=== PATIENT | male | born 1975 | race Two or more races ===

== ENCOUNTER 2016-07-03 16:41 | Inpatient (IN) | payer MEDICAID ==
[~2016-07-03] VITALS: Ht 177.8 cm; Wt 86.2 kg
[~2016-07-03 16:41] MED LIST: Haloperidol 5mg/ml Inj ONE; LORazepam Inj 2mg/ml 1ml ONE; UNOBMED
[2016-07-03] MEDS ORDERED: LORazepam Inj 2mg/ml 1ml IM ONE ×2 (16:45→17:00)
[2016-07-03] MEDS ORDERED: Haloperidol 5mg/ml Inj IM ONE (16:45)
[2016-07-03] MEDS ORDERED: DiphenhydrAMINE 50mg/ml Inj IM ONE (17:00)
[2016-07-03 18:41] LABS: MEAN CORPUSCULAR HEMOGLOBIN 29.1 PG (27.0-31.0); MEAN CORPUSCULAR HGB CONC 33.1 G/DL (32.0-36.0); MEAN CORPUSCULAR VOLUME 88 FL (80-99); PLATELET COUNT 232 K/UL (150-450); RED BLOOD COUNT 5.27 M/UL (4.70-6.10); RED CELL DISTRIBUTION WIDTH 11.6 % (11.6-14.8)
[2016-07-03 18:50] LABS: ACETAMINOPHEN < 10 ug/mL (10-30); ALBUMIN/GLOBULIN RATIO 1.8 (1.0-2.7); ALCOHOL < 10 mg/dL; ANION GAP 21 (5-15); CARBON DIOXIDE 22 mEQ/L (20-30); CHLORIDE 98 mEQ/L (98-107); CREATININE 1.7 mg/dL (0.7-1.2); GLOMERULAR FILTRATION RATE 44.9 mL/min (>60); HEMOLYSIS 12; POTASSIUM 4.7 mEQ/L (3.4-4.9); SODIUM 141 mEQ/L (135-145); TOTAL PROTEIN 6.2 g/dL (6.6-8.7)
[2016-07-03 19:02] LABS: ALANINE AMINOTRANSFERASE > 700 U/L (3-41); ASPARTATE AMINO TRANSFERASE > 853 U/L (5-40)
[2016-07-03 19:18] LABS: BAND NEUTROPHILS % (MANUAL) 4 % (0-8); BASOPHILS % (MANUAL) 0 % (0-2); EOSINOPHILS % (MANUAL) 0 % (0-3); LYMPHOCYTES % (MANUAL) 24 % (20-45); NEUTROPHILS % (MANUAL) 64 % (45-75); PLATELET ESTIMATE ADEQUATE; PLATELET MORPHOLOGY NORMAL; TOTAL CELLS COUNTED 100
[2016-07-03 19:56] VITALS: BP 100/68
[2016-07-03 20:31] VITALS: BP 113/85
[2016-07-03] MEDS ORDERED: Ketorolac 30mg Inj IV ONE (20:45)
[2016-07-03 22:23] VITALS: BP 93/47
--- NOTE | 2016-07-03 22:34 | Emergency Room Report ---
History of Present Illness General Chief Complaint: Altered Level of Consciousness Source: EMS (SILVANO HARRIS M.D.) Present Illness HPI 40-year-old male presents ED for evaluation. Patient brought in by EMS, found altered in his car. Pinpoint pupils. Was given Narcan. Upon arrival he is agitated and screaming. Not speaking and physical manner. Unable to provide any additional history at this time. Reported aggravating relieving factors. No other associated symptoms (SILVANO HARRIS M.D.) Allergies: Coded Allergies: UNABLE TO ASSESS (Unverified , 07/03/16) Patient History Past Medical History: none Past Surgical History: none Pertinent Family History: none Social History: Reports: drug use, Denies: alcohol use, smoking Immunizations: UTD Reviewed Nursing Documentation: PMH: Agreed, PSxH: Agreed (SILVANO HARRIS M.D.) Nursing Documentation-PMH Past Medical History Deferred: Pt Cognitively Impaired (SILVANO HARRIS M.D.) Review of Systems All Other Systems: limited (SILVANO HARRIS M.D.) Physical Exam Vital Signs Date Time Temp Pulse Resp B/P Pulse Ox O2 Delivery O2 Flow Rate FiO2 07/03/16 16:33 86 20 112/51 94 Room Air 07/03/16 19:56 15.0 07/03/16 20:31 101.3 Sp02 EP Interpretation: reviewed, normal General Appearance: other - agitated, screaming Head: normocephalic Eyes: bilateral eye PERRL, bilateral eye normal inspection ENT: normal ENT inspection Neck: normal inspection Respiratory: chest non-tender, lungs clear, normal breath sounds, speaking full sentences Cardiovascular #1: tachycardia Gastrointestinal: normal inspection Rectal: deferred Genitourinary: no CVA tenderness Musculoskeletal: normal inspection Neurologic: alert, motor strength/tone normal, sensory intact, other - screaming/yelling Psychiatric: other - agitated/yelling Skin: normal inspection Lymphatic: normal inspection (SILVANO HARRIS M.D.) Medical Decision Making Diagnostic Impression: Primary Impression: Opiate overdose Qualified Codes: T40.601A - Poisoning by unspecified narcotics, accidental ( unintentional), initial encounter Additional Impressions: Acute encephalopathy Amphetamine abuse Abnormal liver enzymes Acute kidney injury (nontraumatic) Fever Qualified Codes: R50.9 - Fever, unspecified Labs Test 07/03/16 18:02 07/03/16 18:22 Urine Opiates Screen Positive (NEGATIVE) Urine Barbiturates Screen Negative (NEGATIVE) Phencyclidine (PCP) Screen Negative (NEGATIVE) Urine Amphetamines Screen Positive (NEGATIVE) Urine Benzodiazepines Screen Negative (NEGATIVE) Urine Cocaine Screen Negative (NEGATIVE) Urine Marijuana (THC) Screen Negative (NEGATIVE) White Blood Count 2.0 K/UL (4.8-10.8) Red Blood Count 5.27 M/UL (4.70-6.10) Hemoglobin 15.3 G/DL (14.2-18.0) Hematocrit 46.3 % (42.0-52.0) Mean Corpuscular Volume 88 FL (80-99) Mean Corpuscular Hemoglobin 29.1 PG (27.0-31.0) Mean Corpuscular Hemoglobin Concent 33.1 G/DL (32.0-36.0) Red Cell Distribution Width 11.6 % (11.6-14.8) Platelet Count 232 K/UL (150-450) Mean Platelet Volume 7.0 FL (6.5-10.1) Neutrophils (%) (Auto) % (45.0-75.0) Lymphocytes (%) (Auto) % (20.0-45.0) Monocytes (%) (Auto) % (1.0-10.0) Eosinophils (%) (Auto) % (0.0-3.0) Basophils (%) (Auto) % (0.0-2.0) Differential Total Cells Counted 100 Neutrophils % (Manual) 64 % (45-75) Lymphocytes % (Manual) 24 % (20-45) Monocytes % (Manual) 8 % (1-10) Eosinophils % (Manual) 0 % (0-3) Basophils % (Manual) 0 % (0-2) Band Neutrophils 4 % (0-8) Platelet Estimate Adequate Platelet Morphology Normal Red Blood Cell Morphology Normal Sodium Level 141 mEQ/L (135-145) Potassium Level 4.7 mEQ/L (3.4-4.9) Chloride Level 98 mEQ/L (98-107) Carbon Dioxide Level 22 mEQ/L (20-30) Anion Gap 21 (5-15) Blood Urea Nitrogen 23 mg/dL (7-23) Creatinine 1.7 mg/dL (0.7-1.2) Estimat Glomerular Filtration Rate 44.9 mL/min (>60) Glucose Level 63 mg/dL (74-106) Calcium Level 8.0 mg/dL (8.6-10.2) Total Bilirubin 0.9 mg/dL (0.0-1.2) Aspartate Amino Transf (AST/SGOT) > 853 U/L (5-40) Alanine Aminotransferase (ALT/SGPT) > 700 U/L (3-41) Alkaline Phosphatase 55 U/L (40-129) Total Protein 6.2 g/dL (6.6-8.7) Albumin 4.0 g/dL (3.5-5.2) Globulin 2.2 g/dL Albumin/Globulin Ratio 1.8 (1.0-2.7) Salicylates Level < 1 mg/dL (10-30) Acetaminophen Level < 10 ug/mL (10-30) Serum Alcohol < 10 mg/dL (SILVANO HARRIS M.D.) ER Course Patient signed out to me. He was found passed out in his car. He has pinpoint pupil. He responded to Narcan. Require another dose of Narcan here. He is slowly improving. Now breathing on his own. Responded to painful stimuli. After 13 hours, not fully awake, will admit for monitoring. (PAYTON POLO M.D.) ER Course Patient with low grade fever. Labs, CXR and CT head reviewed. Blood cultures obtained. Broad spectrum antibiotics begun. Patient moving head without meningismus. Lactic acid high. Fluid bolus initiated. Patient improved and tolerating PO fluids, but still altered. (Eduardo Vegas M.D.) EKG Diagnostic Results Rate: tachycardiac Rhythm: NSR ST Segments: no acute changes ASA given to the pt in ED: No (SILVANO HARRIS M.D.) Rhythm Strip Diag. Results EP Interpretation: yes Rhythm: NSR, no PVC's, no ectopy (SILVANO HARRIS M.D.) CT/MRI/US Diagnostic Results CT/MRI/US Diagnostic Results : Imaging Test Ordered: CT head Impression no acute process (SILVANO HARRIS M.D.) Last Vital Signs Date Time Temp Pulse Resp B/P Pulse Ox O2 Delivery O2 Flow Rate FiO2 07/03/16 22:23 99.9 114 20 93/47 94 Non-Rebreather 15.0 Status: unchanged (SILVANO HARRIS M.D.) Status: improved (PAYTON POLO M.D.) Disposition: ADMITTED INPATIENT Condition: Serious Referrals: NOT CHOSEN IPA/,REFERRING (PCP) SILVANO HARRIS M.D. Jul 03, 2016 22:34 PAYTON POLO M.D. Jul 04, 2016 05:54 Eduarod Vegas M.D. Jul 04, 2016 12:42
[2016-07-03] MEDS ORDERED: Naloxone 1mg/ml 2ml ONE (23:54)
[2016-07-04] VITALS (11 sets, daily range): BP systolic 88–155; BP diastolic 43–125
[2016-07-04] MEDS ORDERED: Naloxone 1mg/ml 2ml IVP ONE
--- NOTE | 2016-07-04 10:48 | Diagnostic Imaging Report ---
Indication: Altered mental status Comparison: None Technique: Contiguous helical CT images through the brain was performed without intravenous contrast. Axial, coronal and sagittal reconstructions were reformatted. CT dose: Total DLP 1397 mGycm, CTDI volume 70.4 mGy Findings: Exam is limited due to motion artifact. There is no acute intracranial hemorrhage or infarct. No mass, mass effect or midline shift is identified. Ventricles and sulci are within normal limits. No extra-axial fluid collections are seen. Bony calvarium is intact. Mastoid air cells and visualized paranasal sinuses are clear with the exception of some mucosal thickening in the left maxillary sinus and the bilateral ethmoid sinuses.. Impression: Exam limited due to motion. No definite acute intracranial abnormalities. Bilateral ethmoid and left maxillary chronic sinus disease The CT scanner at [facility] is accredited by the [employer] and the scans are performed using protocols designed to limit radiation exposure to as low as reasonably achievable to attain images of sufficient resolution adequate for diagnostic evaluation.
[2016-07-04] MEDS: Cefepime 1gm vial IM ONE ×2 (12:15→12:35)
[2016-07-04] MEDS ORDERED: Vancomycin 1.5gm/D5W 300ml 300 ML IVPB ONE (12:45)
[2016-07-04 13:08] LABS: REFLEX LACTIC ACID YES OR NO YES
[2016-07-04] MEDS ORDERED: NS 1000ml 2,600 ML IVLG ONE (13:30)
[2016-07-04] MEDS ORDERED: Norco 10mg/325mg tab ORAL PRN (17:45)
[2016-07-04] MEDS ORDERED: LORazepam Inj 2mg/ml 1ml IV PRN (18:00)
[2016-07-05] VITALS: BP 111/58
[2016-07-05 04:00] VITALS: BP 142/91
[2016-07-05 08:00] VITALS: BP 138/83
[2016-07-05 11:37] LABS: THYROID STIMULATING HORMONE 0.511 uIU/mL (0.300-4.500)
[2016-07-05 11:53] LABS: MEAN CORPUSCULAR HEMOGLOBIN 31.1 PG (27.0-31.0); MEAN CORPUSCULAR HGB CONC 35.9 G/DL (32.0-36.0); MEAN CORPUSCULAR VOLUME 87 FL (80-99); MEAN PLATELET VOLUME 7.6 FL (6.5-10.1); PLATELET COUNT 174 K/UL (150-450); RED BLOOD COUNT 4.27 M/UL (4.70-6.10); RED CELL DISTRIBUTION WIDTH 11.9 % (11.6-14.8); WHITE BLOOD COUNT 9.7 K/UL (4.8-10.8)
--- NOTE | 2016-07-05 11:56 | History and Physical ---
History of Present Illness General Date patient seen: Jul 05, 2016 Reason for Hospitalization: Altered Level of Consciousness Present Illness HPI Pt is unable to provide any health information at this time, he is drowsy, info was obtained from ED note. Pt is s 40-year-old who was brought in by EMS, found altered in his car. Was given Narcan in ED, upon arrival, he was agitated and screaming. Positive for opiates and amphetamines. Unable to provide any additional history. Reported no aggravating or relieving factors. No other associated symptoms. Allergies: Coded Allergies: PENICILLINS (Verified Allergy, Unknown, 07/05/16) Medication History Miscellaneous Medications Unable to Obtain Medications (Unable To Obtain Meds), (Reported) Patient History History Provided By: Medical Record Healthcare decision maker Resuscitation status Full Code Advanced Directive on File Social History Social History: (1) Drug abuse and dependence Review of Systems ROS Narrative unable to obtain Physical Exam General Appearance: no apparent distress Lines, tubes and drains: peripheral HEENT: normocephalic, atraumatic Neck: non-tender, normal alignment, supple Respiratory/Chest: lungs clear Cardiovascular/Chest: normal rate, regular rhythm, no JVD Abdomen: normal bowel sounds, non tender, soft Extremities: non-tender, normal inspection, no calf tenderness, normal capillary refill Skin Exam: normal pigmentation, warm/dry Neurologic: unresponsiveness Last 24 Hour Vital Signs Date Time Temp Pulse Resp B/P Pulse Ox O2 Delivery O2 Flow Rate FiO2 07/05/16 08:00 91 07/05/16 08:00 98.6 93 20 138/83 95 Room Air 07/05/16 04:00 97.7 104 22 142/91 95 Nasal Cannula 2.0 07/05/16 04:00 95 07/05/16 01:00 99.9 07/05/16 00:00 100.8 72 22 111/58 92 Nasal Cannula 2.0 07/05/16 00:00 103 07/04/16 20:00 99.3 107 14 117/65 93 Nasal Cannula 2.0 07/04/16 17:17 Nasal Cannula 2.0 07/04/16 16:35 98.6 122 14 138/84 90 Room Air 07/04/16 16:00 116 07/04/16 15:34 99.4 108 25 114/69 98 Nasal Cannula 3.0 110 07/04/16 15:20 99.4 110 25 114/69 98 Nasal Cannula 3.0 07/04/16 13:14 100.5 108 22 99/43 96 Nasal Cannula 3.5 Intake and Output 07/04/16 07/05/16 19:00 07:00 Intake Total 800 ml Output Total 2250 ml Balance -1450 ml Intake Oral 800 ml Output Urine Total 2250 ml # Voids 4 4 # Bowel Movements 3 Laboratory Tests Test 07/04/16 12:00 07/05/16 08:45 Lactic Acid Level 2.70 mmol/L (0.66-2.22) H Vitamin B12 Level Pending Folate Pending Thyroid Stimulating Hormone (TSH) 0.511 uIU/mL (0.300-4.500) Height (Feet): 5 Height (Inches): 10.00 Weight (Pounds): 190 Medications Current Medications Medications (Trade) Dose Ordered Sig/Elizabeth Route PRN Reason Start Time Stop Time Status Last Admin Dose Admin Acetaminophen/ Hydrocodone Bitart ([place] 10/325) 1 ea Q6HR PRN ORAL For Pain 07/04/16 17:45 07/11/16 17:44 Lorazepam (Ativan 2mg/ml 1ml) 1 mg Q6H PRN IV Agitation 07/04/16 18:00 07/11/16 17:59 Assessment/Plan Problem List: (1) Amphetamine abuse ICD Codes: F15.10 - Other stimulant abuse, uncomplicated SNOMED: 42992396 (2) Opiate overdose ICD Codes: T40.601A - Poisoning by unspecified narcotics, accidental ( unintentional), initial encounter SNOMED: 814105585 Qualifiers: Qualified Codes: T40.601A - Poisoning by unspecified narcotics, accidental ( unintentional), initial encounter (3) Acute encephalopathy ICD Codes: G93.40 - Encephalopathy, unspecified SNOMED: 3718517 Assessment/Plan Monitor neurological status Neurology consult Cardiology consult Monitor Labs Fall precaution Ca Riggs N.P. Jul 05, 2016 11:56
[2016-07-05 12:00] VITALS: BP 136/81
--- NOTE | 2016-07-05 12:09 | Cardiology Report ---
APPROVED REPORT EKG Measurement Heart [id number] NM [id number] Normal sinus rhythm Possible Left atrial enlargement Septal infarct, age undetermined Abnormal ECG
[2016-07-05 12:13] LABS: BAND NEUTROPHILS % (MANUAL) 22 % (0-8); BASOPHILS % (MANUAL) 0 % (0-2); EOSINOPHILS % (MANUAL) 0 % (0-3); LYMPHOCYTES % (MANUAL) 17 % (20-45); NEUTROPHILS % (MANUAL) 55 % (45-75); PLATELET ESTIMATE ADEQUATE; PLATELET MORPHOLOGY NORMAL; TOTAL CELLS COUNTED 100
[2016-07-05 12:14] LABS: HYPOCHROMASIA 1+
[2016-07-05 12:15] LABS: PATH BLOOD SMEAR/OMC SENT TO PATHOLOGIST
[2016-07-05 12:59] LABS: ERYTHROCYTE SEDIMENTATION RATE 62 MM/HR (0-15)
--- NOTE | 2016-07-05 15:56 | General Progress Note ---
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, improved s/p neupogen # Anemia 2/2 chronic disease -mild # Narcotic overdose # Encephalopathy # Transaminitis Recommendations: - Monitor counts - s/p neupogen on 07/04/16 - Imaging of abdomen to be performed - Hepatitis and HIV panel are negative for infection - Medication review - Monitor for e/o infection - Neutropenic precautions - DVT ppx with heparin sq - DW Staff Sincerely, Elijah Montes MD Subjective Constitutional: Reports: no symptoms HEENT: Reports: no symptoms Cardiovascular: Reports: no symptoms Respiratory: Reports: no symptoms Gastrointestinal/Abdominal: Reports: poor appetite Genitourinary: Reports: no symptoms Neurologic/Psychiatric: Reports: no symptoms Endocrine: Reports: no symptoms Hematologic/Lymphatic: Reports: anemia Allergies: Coded Allergies: UNABLE TO ASSESS (Unverified , 07/03/16) Subjective stable, no events, no fevers or chills Objective Last 24 Hour Vital Signs Date Time Temp Pulse Resp B/P Pulse Ox O2 Delivery O2 Flow Rate FiO2 07/05/16 12:00 97.5 95 17 136/81 92 Nasal Cannula 2.0 07/05/16 12:00 97 07/05/16 08:00 91 07/05/16 08:00 98.6 93 20 138/83 95 Room Air 07/05/16 04:00 97.7 104 22 142/91 95 Nasal Cannula 2.0 07/05/16 04:00 95 07/05/16 01:00 99.9 07/05/16 00:00 100.8 72 22 111/58 92 Nasal Cannula 2.0 07/05/16 00:00 103 07/04/16 20:00 99.3 107 14 117/65 93 Nasal Cannula 2.0 07/04/16 17:17 Nasal Cannula 2.0 07/04/16 16:35 98.6 122 14 138/84 90 Room Air 07/04/16 16:00 116 Intake and Output 07/04/16 07/05/16 19:00 07:00 Intake Total 800 ml Output Total 2250 ml Balance -1450 ml Intake Oral 800 ml Output Urine Total 2250 ml # Voids 4 4 # Bowel Movements 3 Laboratory Tests 07/05/16 08:45: Vitamin B12 Level [Pending], Folate [Pending], Thyroid Stimulating Hormone (TSH ) 0.511 07/05/16 11:45: White Blood Count 9.7, Red Blood Count 4.27L, Hemoglobin 13.3L, Hematocrit 37.0L , Mean Corpuscular Volume 87, Mean Corpuscular Hemoglobin 31.1H, Mean Corpuscular Hemoglobin Concent 35.9, Red Cell Distribution Width 11.9, Platelet Count 174, Mean Platelet Volume 7.6, Neutrophils (%) (Auto) , Lymphocytes (%) ( Auto) , Monocytes (%) (Auto) , Eosinophils (%) (Auto) , Basophils (%) (Auto) , Differential Total Cells Counted 100, Neutrophils % (Manual) 55, Lymphocytes % ( Manual) 17L, Monocytes % (Manual) 6, Eosinophils % (Manual) 0, Basophils % ( Manual) 0, Band Neutrophils 22H, Platelet Estimate Adequate, Platelet Morphology Normal, Hypochromasia 1+, Erythrocyte Sedimentation Rate 62H Height (Feet): 5 Height (Inches): 10.00 Weight (Pounds): 190 General Appearance: no apparent distress EENT: PERRL/EOMI Neck: non-tender Cardiovascular: normal peripheral pulses Respiratory/Chest: normal breath sounds Abdomen: soft Genitourinary/Rectal: heme negative stool Extremities: normal inspection Edema: no edema noted Leg (L), no edema noted Leg (R) Edema: mild edema Neurologic: alert Skin: warm/dry Elijah Montes Jul 05, 2016 15:56
[2016-07-05 16:00] VITALS: BP 131/86
--- NOTE | 2016-07-05 16:02 | Cardiac Electrophysiology PN ---
Subjective Subjective [id number] Objective Last 24 Hour Vital Signs Date Time Temp Pulse Resp B/P Pulse Ox O2 Delivery O2 Flow Rate FiO2 07/05/16 12:00 97.5 95 17 136/81 92 Nasal Cannula 2.0 07/05/16 12:00 97 07/05/16 08:00 91 07/05/16 08:00 98.6 93 20 138/83 95 Room Air 07/05/16 04:00 97.7 104 22 142/91 95 Nasal Cannula 2.0 07/05/16 04:00 95 07/05/16 01:00 99.9 07/05/16 00:00 100.8 72 22 111/58 92 Nasal Cannula 2.0 07/05/16 00:00 103 07/04/16 20:00 99.3 107 14 117/65 93 Nasal Cannula 2.0 07/04/16 17:17 Nasal Cannula 2.0 07/04/16 16:35 98.6 122 14 138/84 90 Room Air Intake and Output 07/04/16 07/05/16 19:00 07:00 Intake Total 800 ml Output Total 2250 ml Balance -1450 ml Intake Oral 800 ml Output Urine Total 2250 ml # Voids 4 4 # Bowel Movements 3 Laboratory Tests Test 07/05/16 08:45 07/05/16 11:45 Vitamin B12 Level Pending Folate Pending Thyroid Stimulating Hormone (TSH) 0.511 uIU/mL (0.300-4.500) White Blood Count 9.7 K/UL (4.8-10.8) Red Blood Count 4.27 M/UL (4.70-6.10) L Hemoglobin 13.3 G/DL (14.2-18.0) L Hematocrit 37.0 % (42.0-52.0) L Mean Corpuscular Volume 87 FL (80-99) Mean Corpuscular Hemoglobin 31.1 PG (27.0-31.0) H Mean Corpuscular Hemoglobin Concent 35.9 G/DL (32.0-36.0) Red Cell Distribution Width 11.9 % (11.6-14.8) Platelet Count 174 K/UL (150-450) Mean Platelet Volume 7.6 FL (6.5-10.1) Neutrophils (%) (Auto) % (45.0-75.0) Lymphocytes (%) (Auto) % (20.0-45.0) Monocytes (%) (Auto) % (1.0-10.0) Eosinophils (%) (Auto) % (0.0-3.0) Basophils (%) (Auto) % (0.0-2.0) Differential Total Cells Counted 100 Neutrophils % (Manual) 55 % (45-75) Lymphocytes % (Manual) 17 % (20-45) L Monocytes % (Manual) 6 % (1-10) Eosinophils % (Manual) 0 % (0-3) Basophils % (Manual) 0 % (0-2) Band Neutrophils 22 % (0-8) H Platelet Estimate Adequate Platelet Morphology Normal Hypochromasia 1+ Erythrocyte Sedimentation Rate 62 MM/HR (0-15) H SAILAJA MCPHERSON Jul 05, 2016 16:02
--- NOTE | 2016-07-05 17:28 | Consultation ---
DATE OF CONSULTATION: 07/04/2016 NOTE: VERY POOR AUDIO QUALITY HEMATOLOGY/ONCOLOGY CONSULTATION CONSULTING PHYSICIAN: Elijah Montes M.D. REQUESTING PHYSICIAN: Vance Kirk M.D. REASON FOR CONSULTATION: Evaluation of leukopenia. IDENTIFYING DATA: Dear Dr. Vance Kirk, The patient is a pleasant 40-year-old male with past medical history significant for narcotic use, drug use, and methamphetamine use in the past at this time, presents to the [facility]. He is brought in by EMS, altered. He was noted to have pimple in pupils was given Narcan upon arrival. He is agitated, screaming, grossly physical, difficult to provide any further history from the patient. Upon checking his blood, it was noted WBC was 2000 with 54% neutrophils and 24% lymphocytes. Hematology service was consulted for further evaluation. PAST MEDICAL HISTORY: None noted. PAST SURGICAL HISTORY: None noted. MEDICATIONS: Medications have been reviewed. ALLERGIES: Unable to assess. SOCIAL HISTORY: alcohol, tobacco, drug use. FAMILY HISTORY: Noncontributory. REVIEW OF SYSTEMS: Difficult to obtain given the patient's mental status. PHYSICAL EXAMINATION: GENERAL: No acute distress. VITAL SIGNS: Temperature 99.3 degrees Fahrenheit, pulse 105, respiratory rate 14, blood pressure 117/65, pulse oximetry 93% nasal cannula. PULMONARY: Decreased breath sounds. CARDIOVASCULAR: Regular rate and rhythm. No M/G/R. ABDOMEN: Soft, nontender, and nondistended. EXTREMITIES: There is 1+ edema. LABORATORY AND DIAGNOSTIC DATA: WBC 18, hemoglobin 13.3, hematocrit 46, and platelet count . Imaging reviewed limited due to motion. ASSESSMENT: 1. 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 2. Narcotic probably overdose. 3. Acute encephalopathy. 4. Transaminitis. 5. Acute kidney injury. 6. Agitation. RECOMMENDATIONS: 1. The patient was given Narcan, Ativan, and Benadryl. 2. Medications have been reviewed. 3. Obtain ultrasound of the abdomen to rule out hepatosplenomegaly and cirrhosis. 4. Labs again reviewed. 5. I have ordered for , B12, folate, . 6. I have ordered for peripheral smear to rule out any evidence of abnormal and leukemia. 7. Antibiotics as needed. 8. Obtain CBC for tomorrow. Thank you, Dr. Vance Kirk, for this kind referral. Please do not hesitate to contact me with any further questions. Elijah Montes M.D. DR: Trent JOB#: [id number] CC:
[2016-07-05 20:00] VITALS: BP 137/72
[2016-07-05] MEDS: Heparin 5000 units/ml inj SUBQ SCH (21:10)
[2016-07-06] VITALS: BP 134/78
[2016-07-06 04:00] VITALS: BP 135/80
--- NOTE | 2016-07-06 05:08 | Consultation ---
DATE OF CONSULTATION: CARDIOLOGY CONSULTATION: REFERRING PHYSICIAN: Vance Kirk M.D. REASON FOR CONSULTATION: Mild tachycardia. HISTORY OF PRESENT ILLNESS: The patient is a 40-year-old gentleman who was found altered in his car and was brought in by EMS. The patient was given Narcan_in the field arrival, the patient agitated and screaming. The patient also tachycardic with heart rate of 122 . The patient was found to have opiate and amphetamine abuse . At time of my evaluation, the patient started sleepy and was not able to provide information. PAST MEDICAL HISTORY: Negative. SOCIAL HISTORY: History of polysubstance abuse. FAMILY HISTORY: Noncontributory. REVIEW OF SYSTEMS: Cannot be obtained. PHYSICAL EXAMINATION: VITAL SIGNS: Blood pressure 153/81, pulse 97, respirations 18, and temperature 97.5 degrees. HEAD AND NECK: Showed no JVD. LUNGS: Clear. CARDIOVASCULAR: Regular. S1 and S2. No gallop or murmur. ABDOMEN: Soft. EXTREMITIES: No pitting edema. LABORATORY AND DIAGNOSTIC DATA: EKG shows sinus tachycardia at a rate of 122 . Labs show white count today 9.7, hemoglobin 14.3, hematocrit 47, and platelet 174,000. Sodium potassium 4.7, BUN 23, creatinine , glucose 63. UA positive for opiates and amphetamine. ASSESSMENT AND PLAN: 1. Tachycardia with sinus tachycardia secondary to amphetamine use. The patient would not need heart rate is already improving. echocardiogram rule out myocardial infarction protocol . 2. Polysubstance abuse with amphetamine and opiate . 3. Leukopenia. White count improved . Thank very much, Dr. Kirk, for allowing me to participate in the care of this patient. Please do not hesitate to contact for any questions regarding my evaluation. Joshua Ford M.D. DR: Mars JOB#: [id number] CC:
[2016-07-06] MEDS: Heparin 5000 units/ml inj SUBQ SCH ×3 (06:04→22:16)
[2016-07-06 08:14] LABS: BASOPHILS % (AUTO) 0.5 % (0.0-2.0); EOSINOPHILS % (AUTO) 0.7 % (0.0-3.0); LYMPHOCYTES % (AUTO) 18.3 % (20.0-45.0); MEAN CORPUSCULAR HEMOGLOBIN 29.6 PG (27.0-31.0); MEAN CORPUSCULAR HGB CONC 34.1 G/DL (32.0-36.0); MEAN CORPUSCULAR VOLUME 87 FL (80-99); MEAN PLATELET VOLUME 6.9 FL (6.5-10.1); MONOCYTES % (AUTO) 3.8 % (1.0-10.0); NEUTROPHILS % (AUTO) 76.8 % (45.0-75.0); PLATELET COUNT 192 K/UL (150-450); RED BLOOD COUNT 4.11 M/UL (4.70-6.10); RED CELL DISTRIBUTION WIDTH 11.7 % (11.6-14.8); WHITE BLOOD COUNT 10.2 K/UL (4.8-10.8)
[2016-07-06 08:30] VITALS: BP 139/74
[2016-07-06 08:38] LABS: ANION GAP 14 (5-15); CALCIUM 8.5 mg/dL (8.6-10.2); CARBON DIOXIDE 25 mEQ/L (20-30); CHLORIDE 102 mEQ/L (98-107); CREATININE 0.6 mg/dL (0.7-1.2); GLOMERULAR FILTRATION RATE > 60 mL/min (>60); HEMOLYSIS 2; POTASSIUM 3.3 mEQ/L (3.4-4.9); SODIUM 141 mEQ/L (135-145)
[2016-07-06 08:40] LABS: TROPONIN I < 0.30 ng/mL (<=0.30)
[2016-07-06 11:43] VITALS: BP 117/81
--- NOTE | 2016-07-06 12:17 | Neurology Progress Note ---
Objective Physical Exam Last Vital Signs Date Time Temp Pulse Resp B/P Pulse Ox O2 Delivery O2 Flow Rate FiO2 07/06/16 11:43 98.6 90 20 117/81 96 Room Air 07/06/16 08:30 2.0 07/05/16 19:25 28 Laboratory Tests Test 07/06/16 06:22 White Blood Count 10.2 K/UL (4.8-10.8) Red Blood Count 4.11 M/UL (4.70-6.10) L Hemoglobin 12.2 G/DL (14.2-18.0) L Hematocrit 35.8 % (42.0-52.0) L Mean Corpuscular Volume 87 FL (80-99) Mean Corpuscular Hemoglobin 29.6 PG (27.0-31.0) Mean Corpuscular Hemoglobin Concent 34.1 G/DL (32.0-36.0) Red Cell Distribution Width 11.7 % (11.6-14.8) Platelet Count 192 K/UL (150-450) Mean Platelet Volume 6.9 FL (6.5-10.1) Neutrophils (%) (Auto) 76.8 % (45.0-75.0) H Lymphocytes (%) (Auto) 18.3 % (20.0-45.0) L Monocytes (%) (Auto) 3.8 % (1.0-10.0) Eosinophils (%) (Auto) 0.7 % (0.0-3.0) Basophils (%) (Auto) 0.5 % (0.0-2.0) Sodium Level 141 mEQ/L (135-145) Potassium Level 3.3 mEQ/L (3.4-4.9) L Chloride Level 102 mEQ/L (98-107) Carbon Dioxide Level 25 mEQ/L (20-30) Anion Gap 14 (5-15) Blood Urea Nitrogen 10 mg/dL (7-23) Creatinine 0.6 mg/dL (0.7-1.2) L Estimat Glomerular Filtration Rate > 60 mL/min (>60) Glucose Level 104 mg/dL (74-106) Calcium Level 8.5 mg/dL (8.6-10.2) L Troponin I < 0.30 ng/mL (<=0.30) Thyroid Stimulating Hormone (TSH) 1.170 uIU/mL (0.300-4.500) Free Thyroxine 1.21 ng/dL (0.86-1.85) Impression/Recommendations Recommendations #[id number] GIBSON SIMPSON Jul 06, 2016 12:17
--- NOTE | 2016-07-06 14:39 | General Progress Note ---
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, improved s/p neupogen, stable # Anemia 2/2 chronic disease -mild # Narcotic overdose, heroin # Encephalopathy # Transaminitis Recommendations: - Monitor counts - s/p neupogen on 07/04/16 - Imaging of abdomen PENDING - Hepatitis and HIV panel are negative for infection - Medications reviewed - Monitor for e/o infection - No further neutropenic precautions - DVT ppx with heparin sq - DW Staff Sincerely, Elijah Montes MD Subjective Constitutional: Reports: no symptoms HEENT: Reports: no symptoms Cardiovascular: Reports: no symptoms Respiratory: Reports: no symptoms Gastrointestinal/Abdominal: Reports: poor appetite Genitourinary: Reports: no symptoms Neurologic/Psychiatric: Reports: no symptoms Endocrine: Reports: no symptoms Hematologic/Lymphatic: Reports: anemia Allergies: Coded Allergies: PENICILLINS (Verified Allergy, Unknown, 07/05/16) Subjective stable, no events, is without fevers or chills Objective Last 24 Hour Vital Signs Date Time Temp Pulse Resp B/P Pulse Ox O2 Delivery O2 Flow Rate FiO2 07/06/16 12:00 110 07/06/16 11:56 110 07/06/16 11:43 98.6 90 20 117/81 96 Room Air 07/06/16 08:30 98.0 87 20 139/74 97 Nasal Cannula 2.0 07/06/16 08:00 81 07/06/16 04:00 99.3 82 20 135/80 97 Room Air 07/06/16 04:00 93 07/06/16 00:00 94 07/06/16 00:00 98.1 89 20 134/78 98 Room Air 07/05/16 20:00 99.7 100 20 137/72 96 Nasal Cannula 2.0 07/05/16 20:00 101 07/05/16 19:25 Nasal Cannula 2.0 28 07/05/16 19:25 98 Nasal Cannula 2.0 28 07/05/16 16:00 94 07/05/16 16:00 97.3 96 20 131/86 92 Nasal Cannula 2.0 Intake and Output 07/05/16 07/06/16 19:00 07:00 Intake Total 680 ml Balance 680 ml Intake Oral 680 ml # Voids 4 4 # Bowel Movements 2 Laboratory Tests 07/06/16 06:22: White Blood Count 10.2, Red Blood Count 4.11L, Hemoglobin 12.2L, Hematocrit 35.8L, Mean Corpuscular Volume 87, Mean Corpuscular Hemoglobin 29.6, Mean Corpuscular Hemoglobin Concent 34.1, Red Cell Distribution Width 11.7, Platelet Count 192, Mean Platelet Volume 6.9, Neutrophils (%) (Auto) 76.8H, Lymphocytes ( %) (Auto) 18.3L, Monocytes (%) (Auto) 3.8, Eosinophils (%) (Auto) 0.7, Basophils (%) (Auto) 0.5, Sodium Level 141, Potassium Level 3.3L, Chloride Level 102, Carbon Dioxide Level 25, Anion Gap 14, Blood Urea Nitrogen 10, Creatinine 0.6L, Estimat Glomerular Filtration Rate > 60, Glucose Level 104, Calcium Level 8.5L, Troponin I < 0.30, Thyroid Stimulating Hormone (TSH) 1.170, Free Thyroxine 1.21 Height (Feet): 5 Height (Inches): 10.00 Weight (Pounds): 190 General Appearance: no apparent distress EENT: TMs normal Neck: supple Cardiovascular: regular rhythm Respiratory/Chest: lungs clear Abdomen: normal bowel sounds Extremities: non-tender Edema: 1+ Leg (L), 1+ Leg (R) Edema: mild edema Neurologic: no motor/sensory deficits Skin: warm/dry Elijah Montes Jul 06, 2016 14:39
[2016-07-06 16:00] VITALS: BP 121/78
--- NOTE | 2016-07-06 17:17 | Cardiac Electrophysiology PN ---
Assessment/Plan Assessment/Plan 1. Sinus tachycardia secondary to amphetamine use. Echo normal EF. 2. Polysubstance abuse with amphetamine and opiate . 3. Leukopenia. White count improved . ROMULO RN Subjective Subjective Alert in NAD. No chest pain or SOB. No arrhythmias reported. Objective Last 24 Hour Vital Signs Date Time Temp Pulse Resp B/P Pulse Ox O2 Delivery O2 Flow Rate FiO2 07/06/16 16:00 98.1 77 27 121/78 98 Room Air 07/06/16 12:00 110 07/06/16 11:56 110 07/06/16 11:43 98.6 90 20 117/81 96 Room Air 07/06/16 08:30 98.0 87 20 139/74 97 Nasal Cannula 2.0 07/06/16 08:00 81 07/06/16 04:00 99.3 82 20 135/80 97 Room Air 07/06/16 04:00 93 07/06/16 00:00 94 07/06/16 00:00 98.1 89 20 134/78 98 Room Air 07/05/16 20:00 99.7 100 20 137/72 96 Nasal Cannula 2.0 07/05/16 20:00 101 07/05/16 19:25 Nasal Cannula 2.0 28 07/05/16 19:25 98 Nasal Cannula 2.0 28 Intake and Output 07/05/16 07/06/16 19:00 07:00 Intake Total 680 ml Balance 680 ml Intake Oral 680 ml # Voids 4 4 # Bowel Movements 2 Laboratory Tests Test 07/06/16 06:22 White Blood Count 10.2 K/UL (4.8-10.8) Red Blood Count 4.11 M/UL (4.70-6.10) L Hemoglobin 12.2 G/DL (14.2-18.0) L Hematocrit 35.8 % (42.0-52.0) L Mean Corpuscular Volume 87 FL (80-99) Mean Corpuscular Hemoglobin 29.6 PG (27.0-31.0) Mean Corpuscular Hemoglobin Concent 34.1 G/DL (32.0-36.0) Red Cell Distribution Width 11.7 % (11.6-14.8) Platelet Count 192 K/UL (150-450) Mean Platelet Volume 6.9 FL (6.5-10.1) Neutrophils (%) (Auto) 76.8 % (45.0-75.0) H Lymphocytes (%) (Auto) 18.3 % (20.0-45.0) L Monocytes (%) (Auto) 3.8 % (1.0-10.0) Eosinophils (%) (Auto) 0.7 % (0.0-3.0) Basophils (%) (Auto) 0.5 % (0.0-2.0) Sodium Level 141 mEQ/L (135-145) Potassium Level 3.3 mEQ/L (3.4-4.9) L Chloride Level 102 mEQ/L (98-107) Carbon Dioxide Level 25 mEQ/L (20-30) Anion Gap 14 (5-15) Blood Urea Nitrogen 10 mg/dL (7-23) Creatinine 0.6 mg/dL (0.7-1.2) L Estimat Glomerular Filtration Rate > 60 mL/min (>60) Glucose Level 104 mg/dL (74-106) Calcium Level 8.5 mg/dL (8.6-10.2) L Troponin I < 0.30 ng/mL (<=0.30) Thyroid Stimulating Hormone (TSH) 1.170 uIU/mL (0.300-4.500) Free Thyroxine 1.21 ng/dL (0.86-1.85) Microbiology Date/Time Source Procedure Growth Status 07/04/16 12:00 Blood Blood Culture - Preliminary NO GROWTH AFTER 24 HOURS Resulted 07/04/16 12:00 Blood Blood Culture - Preliminary NO GROWTH AFTER 24 HOURS Resulted Objective HEAD AND NECK: Showed no JVD. LUNGS: Clear. CARDIOVASCULAR: Regular. S1 and S2. No gallop or murmur. ABDOMEN: Soft. EXTREMITIES: No pitting edema. SAILAJA MCPHERSON Jul 06, 2016 17:17
[2016-07-06 20:00] VITALS: BP 137/74
--- NOTE | 2016-07-06 20:57 | Consultation ---
DATE OF CONSULTATION: 07/04/2016 Neurological consultation REQUESTING PHYSICIAN: Vance Kirk M.D. HISTORY OF PRESENT ILLNESS: The patient is a 40-year-old male with many year history of drug abuse, was found in the car being very agitated, restless. Paramedics were called to the scene, patient being very agitated with pinpoint pupils, being unable to speak or provide with any information. He was given Narcan, brought to emergency room. Blood pressure 112/51, heart rate 86, temperature 101.3. The patient was described as agitated and screaming. There was no otherwise lateralizing finding noted. Stat labs were obtained revealing WBC 2.0 otherwise normal CBC study, sedimentation rate 62. Chemistry panel with creatinine 1.7, anion gap of 21, elevated AST at 853, and ALT of 700. Toxicology panel was positive for amphetamines and opiates. Imaging studies included CT scan of the brain, which revealed no evidence of acute intracranial abnormality. No pathology detected. There was bilateral ethmoid and left maxillary chronic sinus disease. EKG normal sinus rhythm, no premature ventricular contractions. The patient was given hydration, Narcan, as needed [place], lorazepam for agitation, subcutaneous heparin. The patient's condition started to improve. Neurology consult was requested to assess persistent changes in mental status. The patient now informs me that he was on and off crystal methamphetamines for the last five years, on two occasions he had detoxication program. Last week, he started to have intravenous heroin, become quite confused, stopped working. He denies use of alcohol alcohol. The patient denies any other major medical problems. ALLERGIES: Penicillin. 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 FAMILY HISTORY: Noncontributory. REVIEW OF SYSTEMS: Generalized aches and pains but denies headache. No chest pain or palpitation. No respiratory difficulties. PHYSICAL EXAMINATION: GENERAL: The patient is a well developed and moderately obese man, not in acute distress. His family at bedside. VITAL SIGNS: Now stable. Blood pressure 117/80, temperature 98.6. HEENT: Head normocephalic. There is no evidence of trauma. Eyes, ears, and throat are clear. NECK: Supple. No meningeal signs. MUSCULOSKELETAL: Unremarkable. There is no deformities. Peripheral pulses 1+ symmetric. MENTAL STATUS: The patient now is alert, able to provide with history. No aphasia. No apraxia noted. The patient stated that he was "stupid to use this drugs." He denies ever using alcohol. He was able to follow simple commands. CRANIAL NERVE II: Pupils both responding to light and accommodation. Extraocular movement full range. CRANIAL NERVE V: Normal corneal responses. CRANIAL NERVE VII: No facial asymmetry. CRANIAL NERVE III: normal hearing. CRANIAL NERVE IX THROUGH XII: Within normal limits. MOTOR EXAMINATION: Normal muscle tone. Strength 5/5 in all extremities. No involuntary movement. Deep reflexes 1+ symmetric with downgoing toes on both sides. SENSORY EXAMINATION: Withdrawing to pin stimulation all limbs. Gait not tested but reported able to ambulate without assistance. IMPRESSION: 1. Acute toxic encephalopathy status post amphetamine and heroin intoxication. 2. Chronic substance abuse. 3. Transaminitis. 4. Renal insufficiency. RECOMMENDATIONS: 1. The patient to be seen by psychiatry. He recommended detoxication and rehabilitation. 2. Monitor liver function, obtain hepatitis profile. 3. Continue with intravenous hydration. 4. Ativan as needed for agitation. Emeka Grover M.D. DR: Dimitrios JOB#: [id number] CC:
[2016-07-06] MEDS ORDERED: Guaifenesin/DM 10ml syrup ORAL PRN (22:45)
[2016-07-06] MEDS ORDERED: Acetaminophen 500mg (ES) tab ORAL PRN (22:45)
[2016-07-07] VITALS: BP 131/76
[2016-07-07 04:00] VITALS: BP 128/72
[2016-07-07] MEDS: Heparin 5000 units/ml inj SUBQ SCH ×3 (05:41→22:20)
[2016-07-07 08:21] VITALS: BP 114/75
--- NOTE | 2016-07-07 09:26 | Cardiac Electrophysiology PN ---
Assessment/Plan Assessment/Plan 1. Sinus tachycardia secondary to amphetamine use. Echo normal EF.Now in NSR. 2. Polysubstance abuse with amphetamine and opiate . 3. Leukopenia. White count improved . DW RN and electronic device monitor Subjective Subjective Alert in NAD. No chest pain or SOB.Remained in SR. Objective Last 24 Hour Vital Signs Date Time Temp Pulse Resp B/P Pulse Ox O2 Delivery O2 Flow Rate FiO2 07/07/16 08:21 97.2 80 18 114/75 95 Room Air 07/07/16 04:00 79 07/07/16 04:00 98.4 82 20 128/72 92 Room Air 07/07/16 00:00 81 07/07/16 00:00 97.9 76 20 131/76 97 Room Air 07/06/16 20:00 85 07/06/16 20:00 101.5 84 20 137/74 96 Room Air 07/06/16 19:00 96 Room Air 07/06/16 19:00 Room Air 07/06/16 16:00 85 07/06/16 16:00 98.1 77 27 121/78 98 Room Air 07/06/16 12:00 110 07/06/16 11:56 110 07/06/16 11:43 98.6 90 20 117/81 96 Room Air Intake and Output 07/06/16 07/07/16 19:00 07:00 Intake Total 680 ml 240 ml Output Total 5 ml Balance 680 ml 235 ml Intake Oral 680 ml 240 ml Output Urine Total 5 ml # Voids 3 2 # Bowel Movements 2 Labs Test 07/05/16 11:45 07/06/16 06:22 White Blood Count 9.7 K/UL (4.8-10.8) 10.2 K/UL (4.8-10.8) Red Blood Count 4.27 M/UL (4.70-6.10) 4.11 M/UL (4.70-6.10) Hemoglobin 13.3 G/DL (14.2-18.0) 12.2 G/DL (14.2-18.0) Hematocrit 37.0 % (42.0-52.0) 35.8 % (42.0-52.0) Mean Corpuscular Volume 87 FL (80-99) 87 FL (80-99) Mean Corpuscular Hemoglobin 31.1 PG (27.0-31.0) 29.6 PG (27.0-31.0) Mean Corpuscular Hemoglobin Concent 35.9 G/DL (32.0-36.0) 34.1 G/DL (32.0-36.0) Red Cell Distribution Width 11.9 % (11.6-14.8) 11.7 % (11.6-14.8) Platelet Count 174 K/UL (150-450) 192 K/UL (150-450) Mean Platelet Volume 7.6 FL (6.5-10.1) 6.9 FL (6.5-10.1) Neutrophils (%) (Auto) % (45.0-75.0) 76.8 % (45.0-75.0) Lymphocytes (%) (Auto) % (20.0-45.0) 18.3 % (20.0-45.0) Monocytes (%) (Auto) % (1.0-10.0) 3.8 % (1.0-10.0) Eosinophils (%) (Auto) % (0.0-3.0) 0.7 % (0.0-3.0) Basophils (%) (Auto) % (0.0-2.0) 0.5 % (0.0-2.0) Differential Total Cells Counted 100 Neutrophils % (Manual) 55 % (45-75) Lymphocytes % (Manual) 17 % (20-45) Monocytes % (Manual) 6 % (1-10) Eosinophils % (Manual) 0 % (0-3) Basophils % (Manual) 0 % (0-2) Band Neutrophils 22 % (0-8) Platelet Estimate Adequate Platelet Morphology Normal Hypochromasia 1+ Erythrocyte Sedimentation Rate 62 MM/HR (0-15) Sodium Level 141 mEQ/L (135-145) Potassium Level 3.3 mEQ/L (3.4-4.9) Chloride Level 102 mEQ/L (98-107) Carbon Dioxide Level 25 mEQ/L (20-30) Anion Gap 14 (5-15) Blood Urea Nitrogen 10 mg/dL (7-23) Creatinine 0.6 mg/dL (0.7-1.2) Estimat Glomerular Filtration Rate > 60 mL/min (>60) Glucose Level 104 mg/dL (74-106) Calcium Level 8.5 mg/dL (8.6-10.2) Troponin I < 0.30 ng/mL (<=0.30) Thyroid Stimulating Hormone (TSH) 1.170 uIU/mL (0.300-4.500) Free Thyroxine 1.21 ng/dL (0.86-1.85) Microbiology Date/Time Source Procedure Growth Status 07/04/16 12:00 Blood Blood Culture - Preliminary NO GROWTH AFTER 48 HOURS Resulted 07/04/16 12:00 Blood Blood Culture - Preliminary NO GROWTH AFTER 48 HOURS Resulted 07/04/16 19:43 Nasal Not Otherwise Specified MRSA Culture - Final NO METHICILLIN RESISTANT STAPH AUREUS... Complete 07/04/16 19:43 Rectum VRE Culture - Final Enterococcus Faecalis - Vre Complete Objective HEAD AND NECK: Showed no JVD. LUNGS: Clear. CARDIOVASCULAR: Regular. S1 and S2. No gallop or murmur. ABDOMEN: Soft. EXTREMITIES: No pitting edema. SAILAJA MCPHERSON Jul 07, 2016 09:26
[2016-07-07 11:55] VITALS: BP 118/68
--- NOTE | 2016-07-07 12:38 | General Progress Note ---
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, improved s/p neupogen, stable # Anemia 2/2 chronic disease -mild # Narcotic overdose, heroin # Encephalopathy # Transaminitis # Sinus tachycardia Recommendations: - Monitor counts - s/p neupogen on 07/04/16 - Imaging of abdomen PENDING - Hepatitis and HIV panel are negative for infection - Medications reviewed - Cards recommendations - Consider psych eval - No further neutropenic precautions - DVT ppx with heparin sq - DW Staff Sincerely, Elijah Montes MD Subjective Constitutional: Reports: no symptoms HEENT: Reports: no symptoms Cardiovascular: Reports: no symptoms Respiratory: Reports: no symptoms Gastrointestinal/Abdominal: Reports: no symptoms Genitourinary: Reports: no symptoms Neurologic/Psychiatric: Reports: anxiety Endocrine: Reports: no symptoms Hematologic/Lymphatic: Reports: anemia Allergies: Coded Allergies: PENICILLINS (Verified Allergy, Unknown, 07/05/16) Subjective stable, no events, is without fevers or chills, not bleeding Objective Last 24 Hour Vital Signs Date Time Temp Pulse Resp B/P Pulse Ox O2 Delivery O2 Flow Rate FiO2 07/07/16 11:55 97.9 80 18 118/68 97 Room Air 07/07/16 08:21 97.2 80 18 114/75 95 Room Air 07/07/16 08:00 76 07/07/16 07:42 Room Air 07/07/16 07:40 95 Room Air 07/07/16 04:00 79 07/07/16 04:00 98.4 82 20 128/72 92 Room Air 07/07/16 00:00 81 07/07/16 00:00 97.9 76 20 131/76 97 Room Air 07/06/16 20:00 85 07/06/16 20:00 101.5 84 20 137/74 96 Room Air 07/06/16 19:00 96 Room Air 07/06/16 19:00 Room Air 07/06/16 16:00 85 07/06/16 16:00 98.1 77 27 121/78 98 Room Air Intake and Output 07/06/16 07/07/16 19:00 07:00 Intake Total 680 ml 240 ml Output Total 5 ml Balance 680 ml 235 ml Intake Oral 680 ml 240 ml Output Urine Total 5 ml # Voids 3 2 # Bowel Movements 2 Height (Feet): 5 Height (Inches): 10.00 Weight (Pounds): 190 General Appearance: no apparent distress EENT: TMs normal Neck: supple Cardiovascular: regular rhythm Respiratory/Chest: lungs clear Abdomen: soft Genitourinary/Rectal: heme negative stool Extremities: normal inspection Edema: 1+ Leg (L), 1+ Leg (R) Edema: mild edema Neurologic: alert Skin: warm/dry Elijah Montes Jul 07, 2016 12:38
[2016-07-07 16:00] VITALS: BP 114/48
[2016-07-07 20:00] VITALS: BP 128/68
--- NOTE | 2016-07-07 20:37 | General Progress Note ---
Assessment/Plan Problem List: (1) Amphetamine abuse ICD Codes: F15.10 - Other stimulant abuse, uncomplicated SNOMED: 91510642 (2) Opiate overdose ICD Codes: T40.601A - Poisoning by unspecified narcotics, accidental ( unintentional), initial encounter SNOMED: 356793743 Qualifiers: Qualified Codes: T40.601A - Poisoning by unspecified narcotics, accidental ( unintentional), initial encounter (3) Acute encephalopathy ICD Codes: G93.40 - Encephalopathy, unspecified SNOMED: 4729341 (4) VRE (vancomycin resistant enterococcus) culture positive ICD Codes: Z22.39 - Carrier of other specified bacterial diseases SNOMED: 350300811 Assessment/Plan Leukopenia - WBC stable Mild Anemia - Monitor H/H Encephalopathy - Monitor neuro status - Neurology f/u Poly substance abuse - Drug rehab rec Tachycardia - resolved VRE + - ID notified Fever resolved, monitor temp Hypokalemia - will replace K DC plan Subjective Constitutional: Denies: chills, diaphoresis, fever, malaise, no symptoms, other , weakness HEENT: Denies: blurred vision, double vision, ear discharge, ear pain, eye pain , mouth pain, mouth swelling, no symptoms, nose congestion, nose pain, other, tearing, throat pain, throat swelling Cardiovascular: Denies: chest pain, edema, irregular heart rate, lightheadedness, no symptoms, other, palpitations, syncope Respiratory: Denies: SOB at rest, SOB with excertion, cough, no symptoms, orthopnea, other, shortness of breath, sputum, stridor, wheezing Gastrointestinal/Abdominal: Denies: abdomen distended, abdominal pain, black stools, blood in stool, constipated, diarrhea, difficulty swallowing, nausea, no symptoms, other, poor appetite, poor fluid intake, rectal bleeding, tarry stools, vomiting Genitourinary: Denies: burning, discharge, flank pain, frequency, hematuria, incontinence, no symptoms, other, pain, urgency Neurologic/Psychiatric: Denies: anxiety, depressed, emotional problems, headache, no symptoms, numbness, other, paresthesia, pre-existing deficit, seizure, tingling, tremors, weakness Endocrine: Denies: excessive sweating, flushing, increased hunger, increased thirst, increased urine, intolerance to cold, intolerance to heat, no symptoms, other, unexplained weight gain, unexplained weight loss Hematologic/Lymphatic: Denies: anemia, easy bleeding, easy bruising, no symptoms, other Allergies: Coded Allergies: PENICILLINS (Verified Allergy, Unknown, 07/05/16) Subjective In bed, in no distress, denies discomfort, wants to know when he can go home, mom at bedside. Sitter at bedside. Objective Last 24 Hour Vital Signs Date Time Temp Pulse Resp B/P Pulse Ox O2 Delivery O2 Flow Rate FiO2 07/07/16 19:37 97 Room Air 07/07/16 19:37 Room Air 07/07/16 16:00 98.1 83 20 114/48 100 Room Air 07/07/16 16:00 67 07/07/16 12:00 76 07/07/16 11:55 97.9 80 18 118/68 97 Room Air 07/07/16 08:21 97.2 80 18 114/75 95 Room Air 07/07/16 08:00 76 07/07/16 07:42 Room Air 07/07/16 07:40 95 Room Air 07/07/16 04:00 79 07/07/16 04:00 98.4 82 20 128/72 92 Room Air 07/07/16 00:00 81 07/07/16 00:00 97.9 76 20 131/76 97 Room Air Intake and Output 07/06/16 07/07/16 19:00 07:00 Intake Total 680 ml 240 ml Output Total 5 ml Balance 680 ml 235 ml Intake Oral 680 ml 240 ml Output Urine Total 5 ml # Voids 3 2 # Bowel Movements 2 Height (Feet): 5 Height (Inches): 10.00 Weight (Pounds): 190 General Appearance: no apparent distress, alert EENT: normal ENT inspection Neck: normal alignment, supple Cardiovascular: normal rate, regular rhythm Respiratory/Chest: lungs clear, normal breath sounds, no respiratory distress Abdomen: non tender, soft, no organomegaly Extremities: non-tender, normal inspection Neurologic: alert, oriented x 3, responsive, normal mood/affect Skin: normal pigmentation, warm/dry Ca Riggs N.P. Jul 07, 2016 20:37
--- NOTE | 2016-07-07 20:40 | Infectious Diseases Prog Note ---
Assessment/Plan Problems: (1) Sepsis Assessment & Plan: will start vancomycin and cefepime empirically pending blood culture results, to rule out bacteremia (2) Fever Assessment & Plan: suspect sepsis in drug abuser, will start wide spectrum antibiotics, await blood culture, continue tylenol prn (3) Amphetamine abuse Assessment & Plan: recommend counseling, needs screening for HIV, and Hepatitis (4) VRE (vancomycin resistant enterococcus) culture positive Assessment & Plan: keep in contact isolation Subjective Allergies: Coded Allergies: PENICILLINS (Verified Allergy, Unknown, 07/05/16) Objective Vital Signs Last 24 Hour Vital Signs Date Time Temp Pulse Resp B/P Pulse Ox O2 Delivery O2 Flow Rate FiO2 07/07/16 19:37 97 Room Air 07/07/16 19:37 Room Air 07/07/16 16:00 98.1 83 20 114/48 100 Room Air 07/07/16 16:00 67 07/07/16 12:00 76 07/07/16 11:55 97.9 80 18 118/68 97 Room Air 07/07/16 08:21 97.2 80 18 114/75 95 Room Air 07/07/16 08:00 76 07/07/16 07:42 Room Air 07/07/16 07:40 95 Room Air 07/07/16 04:00 79 07/07/16 04:00 98.4 82 20 128/72 92 Room Air 07/07/16 00:00 81 07/07/16 00:00 97.9 76 20 131/76 97 Room Air Height (Feet): 5 Height (Inches): 10.00 Weight (Pounds): 190 Current Medications Medications (Trade) Dose Ordered Sig/Elizabeth Route PRN Reason Start Time Stop Time Status Last Admin Dose Admin Acetaminophen (Tylenol) 500 mg Q4H PRN ORAL Mild Pain/Temp > 100.5 07/06/16 22:45 08/05/16 22:44 Acetaminophen/ Hydrocodone Bitart ([place] 10/325) 1 ea Q6HR PRN ORAL For Pain 07/04/16 17:45 07/11/16 17:44 Guaifenesin/ Dextromethorphan (Robitussin DM Syrup) 10 ml Q4H PRN ORAL For Cough 07/06/16 22:45 08/05/16 22:44 Heparin Sodium (Porcine) (Heparin 5000 units/ml) 5,000 units EVERY 8 HOURS SUBQ 07/05/16 22:00 08/04/16 21:59 07/07/16 13:43 Lorazepam (Ativan 2mg/ml 1ml) 1 mg Q6H PRN IV Agitation 07/04/16 18:00 07/11/16 17:59 Ernst Geller M.D. Jul 07, 2016 20:40
--- NOTE | 2016-07-07 22:40 | Nephrology Progress Note ---
Assessment/Plan Problem List: (1) Fever (2) Amphetamine abuse (3) Opiate overdose (4) VRE (vancomycin resistant enterococcus) culture positive (5) Sepsis (6) Acute encephalopathy (7) Abnormal liver enzymes (8) Acute kidney injury (nontraumatic) Assessment: better/ Plan IVF. Cardio following. ID consult. d/c plan soon. Subjective Subjective late entry for 07/06/16 - better. Objective Objective Last 24 Hour Vital Signs Date Time Temp Pulse Resp B/P Pulse Ox O2 Delivery O2 Flow Rate FiO2 07/07/16 20:00 98.1 78 19 128/68 96 Room Air 07/07/16 19:37 97 Room Air 07/07/16 19:37 Room Air 07/07/16 16:00 98.1 83 20 114/48 100 Room Air 07/07/16 16:00 67 07/07/16 12:00 76 07/07/16 11:55 97.9 80 18 118/68 97 Room Air 07/07/16 08:21 97.2 80 18 114/75 95 Room Air 07/07/16 08:00 76 07/07/16 07:42 Room Air 07/07/16 07:40 95 Room Air 07/07/16 04:00 79 07/07/16 04:00 98.4 82 20 128/72 92 Room Air 07/07/16 00:00 81 07/07/16 00:00 97.9 76 20 131/76 97 Room Air Intake and Output 07/06/16 07/07/16 19:00 07:00 Intake Total 680 ml 240 ml Output Total 5 ml Balance 680 ml 235 ml Intake Oral 680 ml 240 ml Output Urine Total 5 ml # Voids 3 2 # Bowel Movements 2 Height (Feet): 5 Height (Inches): 10.00 Weight (Pounds): 190 General Appearance: no apparent distress Cardiovascular: normal rate, regular rhythm Respiratory/Chest: lungs clear Abdomen: non tender, soft ABBEY VALENTINE Jul 07, 2016 22:40
[2016-07-07] MEDS: Vancomycin 1250mg/D5W 250ml IVPB SCH ×2 (23:00)
[2016-07-08 00:12] VITALS: BP 126/66
[2016-07-08 04:29] VITALS: BP 114/61
[2016-07-08] MEDS: Heparin 5000 units/ml inj SUBQ SCH ×3 (06:00→22:23)
[2016-07-08 07:32] LABS: BASOPHILS % (AUTO) 0.8 % (0.0-2.0); EOSINOPHILS % (AUTO) 5.3 % (0.0-3.0); LYMPHOCYTES % (AUTO) 30.5 % (20.0-45.0); MEAN CORPUSCULAR HEMOGLOBIN 29.9 PG (27.0-31.0); MEAN CORPUSCULAR HGB CONC 34.3 G/DL (32.0-36.0); MEAN CORPUSCULAR VOLUME 87 FL (80-99); MEAN PLATELET VOLUME 6.5 FL (6.5-10.1); MONOCYTES % (AUTO) 10.5 % (1.0-10.0); NEUTROPHILS % (AUTO) 52.9 % (45.0-75.0); PLATELET COUNT 258 K/UL (150-450); RED BLOOD COUNT 4.45 M/UL (4.70-6.10); RED CELL DISTRIBUTION WIDTH 11.6 % (11.6-14.8); WHITE BLOOD COUNT 8.1 K/UL (4.8-10.8)
[2016-07-08 07:48] LABS: ANION GAP 17 (5-15); CALCIUM 8.7 mg/dL (8.6-10.2); CARBON DIOXIDE 22 mEQ/L (20-30); CHLORIDE 102 mEQ/L (98-107); CREATININE 0.6 mg/dL (0.7-1.2); GLOMERULAR FILTRATION RATE > 60 mL/min (>60); HEMOLYSIS 3; POTASSIUM 3.2 mEQ/L (3.4-4.9); SODIUM 141 mEQ/L (135-145)
[2016-07-08 08:53] VITALS: BP 115/56
--- NOTE | 2016-07-08 10:20 | Cardiac Electrophysiology PN ---
Assessment/Plan Status: doing well, stable Status Narrative Mr. Bruner is hemodynamically stable, with no chest pain or dyspnea. Sinus rates have decreased to normal. ECHO w preserved LV function, mild LVH and no signif valve abnl Assessment/Plan Will dc telemetry monitoring, as rhythm stable - NSR No further cardiac w/u indicated. ? drug rehab dc plan per Dr. Marcano Subjective ROS Limited/Unobtainable: No Subjective sedated/ no c/o Objective Last 24 Hour Vital Signs Date Time Temp Pulse Resp B/P Pulse Ox O2 Delivery O2 Flow Rate FiO2 07/08/16 08:53 98.1 74 18 115/56 95 Room Air 07/08/16 07:51 Room Air 07/08/16 07:51 96 Room Air 07/08/16 04:29 97.0 47 20 114/61 96 Room Air 07/08/16 04:00 82 07/08/16 00:12 98.6 83 20 126/66 97 Room Air 07/08/16 00:00 79 07/07/16 20:00 82 07/07/16 20:00 98.1 78 19 128/68 96 Room Air 07/07/16 19:37 97 Room Air 07/07/16 19:37 Room Air 07/07/16 16:00 98.1 83 20 114/48 100 Room Air 07/07/16 16:00 67 07/07/16 12:00 76 07/07/16 11:55 97.9 80 18 118/68 97 Room Air General Appearance: WD/WN, no apparent distress EENT: PERRL/EOMI Neck: supple, no JVD Rhythm: NSR Cardiovascular: normal rate, regular rhythm, no gallop/murmur Respiratory/Chest: lungs clear Abdomen: normal bowel sounds, non tender, soft Extremities: no swelling Intake and Output 07/07/16 07/08/16 19:00 07:00 Intake Total 480 ml Balance 480 ml Intake Oral 480 ml # Voids 3 Laboratory Tests Test 07/08/16 05:20 White Blood Count 8.1 K/UL (4.8-10.8) Red Blood Count 4.45 M/UL (4.70-6.10) L Hemoglobin 13.3 G/DL (14.2-18.0) L Hematocrit 38.9 % (42.0-52.0) L Mean Corpuscular Volume 87 FL (80-99) Mean Corpuscular Hemoglobin 29.9 PG (27.0-31.0) Mean Corpuscular Hemoglobin Concent 34.3 G/DL (32.0-36.0) Red Cell Distribution Width 11.6 % (11.6-14.8) Platelet Count 258 K/UL (150-450) Mean Platelet Volume 6.5 FL (6.5-10.1) Neutrophils (%) (Auto) 52.9 % (45.0-75.0) Lymphocytes (%) (Auto) 30.5 % (20.0-45.0) Monocytes (%) (Auto) 10.5 % (1.0-10.0) H Eosinophils (%) (Auto) 5.3 % (0.0-3.0) H Basophils (%) (Auto) 0.8 % (0.0-2.0) Sodium Level 141 mEQ/L (135-145) Potassium Level 3.2 mEQ/L (3.4-4.9) L Chloride Level 102 mEQ/L (98-107) Carbon Dioxide Level 22 mEQ/L (20-30) Anion Gap 17 (5-15) H Blood Urea Nitrogen 7 mg/dL (7-23) Creatinine 0.6 mg/dL (0.7-1.2) L Estimat Glomerular Filtration Rate > 60 mL/min (>60) Glucose Level 110 mg/dL (74-106) H Calcium Level 8.7 mg/dL (8.6-10.2) Microbiology Date/Time Source Procedure Growth Status 07/07/16 10:00 Blood Blood Culture - Preliminary Resulted MARTHA CHAN Jul 08, 2016 10:20
--- NOTE | 2016-07-08 11:16 | General Progress Note ---
Assessment/Plan Assessment/Plan Assessment: # Anemia 2/2 chronic disease -mild # Leukopenia - likely bengin congential neutropenia--> improved s/p neupogen # Narcotic overdose, heroin # Encephalopathy # Transaminitis # Sinus tachycardia Recommendations: - Monitor counts - s/p neupogen on 07/04/16 - Imaging of abdomen PENDING - Hepatitis and HIV panel are negative for infection - Medications reviewed - Follow cards, ID recommendations - Consider psych eval - DVT ppx with heparin sq - DW Staff Sincerely, Elijah Montes MD Subjective Constitutional: Reports: no symptoms HEENT: Reports: no symptoms Cardiovascular: Reports: no symptoms Respiratory: Reports: no symptoms Gastrointestinal/Abdominal: Reports: no symptoms Genitourinary: Reports: no symptoms Neurologic/Psychiatric: Reports: no symptoms Endocrine: Reports: no symptoms Hematologic/Lymphatic: Reports: anemia Allergies: Coded Allergies: PENICILLINS (Verified Allergy, Unknown, 07/05/16) Subjective stable, no events, is without fevers or chills, is not bleeding Objective Last 24 Hour Vital Signs Date Time Temp Pulse Resp B/P Pulse Ox O2 Delivery O2 Flow Rate FiO2 07/08/16 08:53 98.1 74 18 115/56 95 Room Air 07/08/16 07:51 Room Air 07/08/16 07:51 96 Room Air 07/08/16 04:29 97.0 47 20 114/61 96 Room Air 07/08/16 04:00 82 07/08/16 00:12 98.6 83 20 126/66 97 Room Air 07/08/16 00:00 79 07/07/16 20:00 82 07/07/16 20:00 98.1 78 19 128/68 96 Room Air 07/07/16 19:37 97 Room Air 07/07/16 19:37 Room Air 07/07/16 16:00 98.1 83 20 114/48 100 Room Air 07/07/16 16:00 67 07/07/16 12:00 76 07/07/16 11:55 97.9 80 18 118/68 97 Room Air Intake and Output 07/07/16 07/08/16 19:00 07:00 Intake Total 480 ml Balance 480 ml Intake Oral 480 ml # Voids 3 Laboratory Tests 07/08/16 05:20: White Blood Count 8.1, Red Blood Count 4.45L, Hemoglobin 13.3L, Hematocrit 38.9L , Mean Corpuscular Volume 87, Mean Corpuscular Hemoglobin 29.9, Mean Corpuscular Hemoglobin Concent 34.3, Red Cell Distribution Width 11.6, Platelet Count 258, Mean Platelet Volume 6.5, Neutrophils (%) (Auto) 52.9, Lymphocytes (% ) (Auto) 30.5, Monocytes (%) (Auto) 10.5H, Eosinophils (%) (Auto) 5.3H, Basophils (%) (Auto) 0.8, Sodium Level 141, Potassium Level 3.2L, Chloride Level 102, Carbon Dioxide Level 22, Anion Gap 17H, Blood Urea Nitrogen 7, Creatinine 0.6L, Estimat Glomerular Filtration Rate > 60, Glucose Level 110H, Calcium Level 8.7 Height (Feet): 5 Height (Inches): 10.00 Weight (Pounds): 190 General Appearance: alert EENT: TMs normal Neck: supple Cardiovascular: regular rhythm Respiratory/Chest: normal breath sounds Abdomen: soft Extremities: non-tender Edema: 1+ Leg (L), 1+ Leg (R) Edema: mild edema Neurologic: no motor/sensory deficits Elijah Montes Jul 08, 2016 11:16
[2016-07-08] MEDS: Vancomycin 1250mg/D5W 250ml IVPB SCH ×4 (11:18→22:22)
[2016-07-08 12:00] VITALS: BP 107/61
[2016-07-08 16:00] VITALS: BP 121/63
--- NOTE | 2016-07-08 16:45 | Nephrology Progress Note ---
Assessment/Plan Problem List: (1) Fever (2) Amphetamine abuse (3) Opiate overdose (4) VRE (vancomycin resistant enterococcus) culture positive (5) Sepsis (6) Acute encephalopathy Assessment: 2/2 heroin and amphetamine use (7) Abnormal liver enzymes (8) Acute kidney injury (nontraumatic) Assessment: better/ Plan IVF. Cardio following. d/c tele. tx to [facility]. ID consult. f/u bcx. empiric abx. d/c held d/t +bcx. Subjective Subjective afebrile Objective Objective Last 24 Hour Vital Signs Date Time Temp Pulse Resp B/P Pulse Ox O2 Delivery O2 Flow Rate FiO2 07/08/16 12:00 97.9 64 18 107/61 96 Room Air 07/08/16 12:00 63 07/08/16 08:53 98.1 74 18 115/56 95 Room Air 07/08/16 08:00 77 07/08/16 07:51 Room Air 07/08/16 07:51 96 Room Air 07/08/16 04:29 97.0 47 20 114/61 96 Room Air 07/08/16 04:00 82 07/08/16 00:12 98.6 83 20 126/66 97 Room Air 07/08/16 00:00 79 07/07/16 20:00 82 07/07/16 20:00 98.1 78 19 128/68 96 Room Air 07/07/16 19:37 97 Room Air 07/07/16 19:37 Room Air Intake and Output 07/07/16 07/08/16 19:00 07:00 Intake Total 480 ml Balance 480 ml Intake Oral 480 ml # Voids 3 Laboratory Tests 07/08/16 05:20: White Blood Count 8.1, Red Blood Count 4.45L, Hemoglobin 13.3L, Hematocrit 38.9L , Mean Corpuscular Volume 87, Mean Corpuscular Hemoglobin 29.9, Mean Corpuscular Hemoglobin Concent 34.3, Red Cell Distribution Width 11.6, Platelet Count 258, Mean Platelet Volume 6.5, Neutrophils (%) (Auto) 52.9, Lymphocytes (% ) (Auto) 30.5, Monocytes (%) (Auto) 10.5H, Eosinophils (%) (Auto) 5.3H, Basophils (%) (Auto) 0.8, Sodium Level 141, Potassium Level 3.2L, Chloride Level 102, Carbon Dioxide Level 22, Anion Gap 17H, Blood Urea Nitrogen 7, Creatinine 0.6L, Estimat Glomerular Filtration Rate > 60, Glucose Level 110H, Calcium Level 8.7, Hepatitis A IgM Antibody [Pending], Hepatitis B Surface Antigen [Pending], Hepatitis B Surface Antibody [Pending], Hepatitis C Antibody [Pending], HIV (1&2) Antibody Rapid [Pending] Height (Feet): 5 Height (Inches): 10.00 Weight (Pounds): 190 General Appearance: no apparent distress Cardiovascular: normal rate, regular rhythm Respiratory/Chest: lungs clear Abdomen: non tender, soft ABBEY VALENTINE Jul 08, 2016 16:45
--- NOTE | 2016-07-08 18:08 | Infectious Diseases Prog Note ---
Assessment/Plan Problems: (1) Sepsis Assessment & Plan: with gram positive cocci in clusturs , continue vancomycin and ertapenem empirically pending blood culture results, to rule out bacteremia , echo ruled out vegetations (2) Fever Assessment & Plan: suspect sepsis in drug abuser, will start wide spectrum antibiotics, await blood culture, continue tylenol prn (3) Amphetamine abuse Assessment & Plan: recommend counseling, needs screening for HIV, and Hepatitis (4) VRE (vancomycin resistant enterococcus) culture positive Assessment & Plan: keep in contact isolation Subjective Constitutional: Reports: no symptoms HEENT: Reports: no symptoms Respiratory: Reports: no symptoms Cardiovascular: Reports: no symptoms Gastrointestinal/Abdominal: Reports: no symptoms Genitourinary: Reports: no symptoms Neurologic: Reports: no symptoms Psychiatric: Reports: no symptoms Skin: Reports: no symptoms Endocrine: Reports: no symptoms Hematologic: Reports: no symptoms Musculoskeletal: Reports: no symptoms Allergies: Coded Allergies: PENICILLINS (Verified Allergy, Unknown, 07/05/16) Subjective he was alert and comfortable, denied any fever Objective Vital Signs Last 24 Hour Vital Signs Date Time Temp Pulse Resp B/P Pulse Ox O2 Delivery O2 Flow Rate FiO2 07/08/16 16:00 97.6 67 18 121/63 98 Room Air 07/08/16 12:00 97.9 64 18 107/61 96 Room Air 07/08/16 12:00 63 07/08/16 08:53 98.1 74 18 115/56 95 Room Air 07/08/16 08:00 77 07/08/16 07:51 Room Air 07/08/16 07:51 96 Room Air 07/08/16 04:29 97.0 47 20 114/61 96 Room Air 07/08/16 04:00 82 07/08/16 00:12 98.6 83 20 126/66 97 Room Air 07/08/16 00:00 79 07/07/16 20:00 82 07/07/16 20:00 98.1 78 19 128/68 96 Room Air 07/07/16 19:37 97 Room Air 07/07/16 19:37 Room Air Height (Feet): 5 Height (Inches): 10.00 Weight (Pounds): 190 General Appearance: WD/WN, no acute distress HEENT: normocephalic, atraumatic, anicteric Respiratory/Chest: chest wall non-tender, lungs clear, normal breath sounds, no respiratory distress, no accessory muscle use Cardiovascular: normal peripheral pulses, normal rate, regular rhythm, no gallop/murmur Abdomen: normal bowel sounds, soft, non tender, no organomegaly, non distended , no mass Extremities: no cyanosis, no clubbing Skin: no rash, no lesions, no ulcers Microbiology Date/Time Source Procedure Growth Status 07/07/16 10:00 Blood Blood Culture - Preliminary Resulted Laboratory Tests Test 07/08/16 05:20 White Blood Count 8.1 K/UL (4.8-10.8) Red Blood Count 4.45 M/UL (4.70-6.10) L Hemoglobin 13.3 G/DL (14.2-18.0) L Hematocrit 38.9 % (42.0-52.0) L Mean Corpuscular Volume 87 FL (80-99) Mean Corpuscular Hemoglobin 29.9 PG (27.0-31.0) Mean Corpuscular Hemoglobin Concent 34.3 G/DL (32.0-36.0) Red Cell Distribution Width 11.6 % (11.6-14.8) Platelet Count 258 K/UL (150-450) Mean Platelet Volume 6.5 FL (6.5-10.1) Neutrophils (%) (Auto) 52.9 % (45.0-75.0) Lymphocytes (%) (Auto) 30.5 % (20.0-45.0) Monocytes (%) (Auto) 10.5 % (1.0-10.0) H Eosinophils (%) (Auto) 5.3 % (0.0-3.0) H Basophils (%) (Auto) 0.8 % (0.0-2.0) Sodium Level 141 mEQ/L (135-145) Potassium Level 3.2 mEQ/L (3.4-4.9) L Chloride Level 102 mEQ/L (98-107) Carbon Dioxide Level 22 mEQ/L (20-30) Anion Gap 17 (5-15) H Blood Urea Nitrogen 7 mg/dL (7-23) Creatinine 0.6 mg/dL (0.7-1.2) L Estimat Glomerular Filtration Rate > 60 mL/min (>60) Glucose Level 110 mg/dL (74-106) H Calcium Level 8.7 mg/dL (8.6-10.2) Hepatitis A IgM Antibody Pending Hepatitis B Surface Antigen Pending Hepatitis B Surface Antibody Pending Hepatitis C Antibody Pending HIV (1&2) Antibody Rapid Negative (NEGATIVE) Current Medications Medications (Trade) Dose Ordered Sig/Elizabeth Route PRN Reason Start Time Stop Time Status Last Admin Dose Admin Acetaminophen (Tylenol) 500 mg Q4H PRN ORAL Mild Pain/Temp > 100.5 07/06/16 22:45 08/05/16 22:44 Acetaminophen/ Hydrocodone Bitart ([place] 10/325) 1 ea Q6HR PRN ORAL For Pain 07/04/16 17:45 07/11/16 17:44 Ertapenem/Sodium Chloride (INVanz/Sodium Chloride 100ml bag) 100 ml @ 100 mls/hr Q24H INJ 07/08/16 00:00 07/13/16 00:00 07/08/16 00:00 Guaifenesin/ Dextromethorphan 10 ml 10 ml Q4H PRN ORAL For Cough 07/06/16 22:45 08/05/16 22:44 Heparin Sodium (Porcine) (Heparin 5000 units/ml) 5,000 units EVERY 8 HOURS SUBQ 07/05/16 22:00 08/04/16 21:59 07/08/16 13:47 Lorazepam (Ativan 2mg/ml 1ml) 1 mg Q6H PRN IV Agitation 07/04/16 18:00 07/11/16 17:59 Vancomycin HCl (Vanco rx to dose) 1 ea DAILY PRN MISC RX PER PROTOCOL 07/08/16 13:30 08/07/16 13:29 Vancomycin HCl 1.25 gm/Dextrose 250 ml @ 166.667 mls/hr Q12H IVPB 07/07/16 23:00 07/12/16 22:59 07/08/16 11:18 Ernst Geller M.D. Jul 08, 2016 18:08
[2016-07-08 20:00] VITALS: BP 124/72
--- NOTE | 2016-07-08 21:18 | Consultation ---
DATE OF CONSULTATION: INFECTIOUS DISEASE CONSULTATION REQUESTING PHYSICIAN: Vance Kirk M.D. REASON FOR CONSULTATION: Sepsis, fever, and IV drug abuser. HISTORY OF PRESENT ILLNESS: The patient is a 40-year-old male with no significant past medical history, was brought in to [facility] for altered mental status. The patient had pinpoint pupils. He was agitated and screaming. He was given Narcan on the way to the emergency room. The patient was injecting meths with his cousin at home the day of the admission and he had shared needles with his cousin. In the emergency room, he had an aggressive behavior. He was agitated. He was not speaking full sentence and confused. Temperature was 101.3 degrees in the emergency room. He was tachycardic and saturating 94% on room air. The patient had blood culture x2 so far, one of them growing gram positive cocci and clusters, so I was consulted by the primary provider for antibiotics recommendation and further management for possible sepsis in IV drug abuser. The patient is doing well. Today, he is awake, alert, and coherent, not agitated. Denied any fever or chills. No cough or shortness of breath. No nausea or vomiting. No abdominal pain or diarrhea. PAST MEDICAL HISTORY: Negative. PAST SURGICAL HISTORY: Negative. ALLERGIES: He is allergic to penicillin with hives and swelling. MEDICATIONS: He is on Tylenol, Robitussin, heparin, Ativan and Emmons. SOCIAL HISTORY: The patient is unemployed, used drugs, mainly injection, he did today of admission and he shared needles with others and drink alcohol socially. FAMILY HISTORY: Negative for recurrent infection or immunocompromised condition. REVIEW OF SYSTEMS: A 12-point of system reviewed were all negative apart from the one I mentioned above in my History and Physical. PHYSICAL EXAMINATION: GENERAL: The patient is a middle-aged male, up in bed, awake, alert, and oriented, not in distress. VITAL SIGNS: Temperature 98.1 degrees, pulse 83, respirations 20, blood pressure 114/48, and pulse oximetry 100% on room air. HEENT: Normocephalic and atraumatic. Pupils are reactive to light equally. Moist oral mucosa. No exudate. NECK: Supple. No lymphadenopathy. LUNGS: Clear bilaterally. No wheezing or rhonchi. CARDIOVASCULAR: Regular rate and rhythm. No murmur. No gallop. ABDOMEN: Soft, nontender, and nondistended. Positive bowel sounds. No hepatosplenomegaly. No ascites. EXTREMITIES: No edema. No cyanosis. SKIN: No rash. No ulcerations. He had skin needle sevilla on his right arm. LABORATORY AND DIAGNOSTIC DATA: Laboratories showed white count of 10.2, hemoglobin of 12.2, hematocrit of 35.8, and platelet count of 192,000. Sedimentation rate of 62. BUN of 10 and creatinine of 0.6. Toxicology screening was positive for opiates and amphetamines. Serology, HIV test pending. Microbiology, two blood culture done on 07/04/2016 showed no growth for 72 hours. Blood culture on the 07/07/2016 grew gram positive cocci and cluster. Rectal screening for VRE was positive. Imaging, head CT scan showed limited exam due to motion. No definite acute intracranial abnormality. ASSESSMENT AND PLAN: 1. Sepsis with gram positive cocci and clusters, suspect staphylococcus species due to intravenous drug abuse. We will start the patient empirically on vancomycin and cefepime, pending further culture results and sensitivity. We will order echocardiogram to evaluate his valves to rule out endocarditis. 2. Fever due to sepsis. The patient will be started on wide-spectrum antibiotics. 3. Amphetamine abuse. The patient is injecting amphetamine and shared needles. We will screen him for hepatitis and human immunodeficiency virus. He needs counseling. 4. Vancomycin resistant enterococcus colonization, keep in contact isolation. Thank you for the consult. Infectious Disease will continue to follow. Ernst Geller M.D. DR: ANDREA JOB#: [id number] CC:
[2016-07-09 00:15] VITALS: BP 110/62
[2016-07-09 04:40] VITALS: BP 99/57
[2016-07-09] MEDS: Heparin 5000 units/ml inj SUBQ SCH ×3 (05:58→21:14)
[2016-07-09 08:02] VITALS: BP 107/54
[2016-07-09] MEDS: Vancomycin 1250mg/D5W 250ml IVPB SCH ×2 (11:22)
[2016-07-09 11:55] VITALS: BP 108/58
--- NOTE | 2016-07-09 12:39 | General Progress Note ---
Assessment/Plan Assessment/Plan Assessment: # Anemia 2/2 chronic disease - is mild # Leukopenia - likely med related, now is stable # Narcotic overdose, heroin # Encephalopathy # Transaminitis # Sinus tachycardia Recommendations: - Monitor counts - s/p neupogen on 07/04/16 - Imaging of abdomen PENDING - Hepatitis and HIV panel are negative for infection - Medications reviewed - Follow cards, ID recommendations - Consider psych eval - DVT ppx with heparin sq - DW Staff Sincerely, Elijah Montes MD Subjective Constitutional: Reports: no symptoms HEENT: Reports: no symptoms Cardiovascular: Reports: no symptoms Respiratory: Reports: no symptoms Gastrointestinal/Abdominal: Reports: poor appetite Genitourinary: Reports: no symptoms Neurologic/Psychiatric: Reports: no symptoms Endocrine: Reports: no symptoms Hematologic/Lymphatic: Reports: anemia Allergies: Coded Allergies: PENICILLINS (Verified Allergy, Unknown, 07/05/16) Subjective stable, no events, is without fevers or chills, is not bleeding Objective Last 24 Hour Vital Signs Date Time Temp Pulse Resp B/P Pulse Ox O2 Delivery O2 Flow Rate FiO2 07/09/16 11:55 97.9 72 18 108/58 97 Room Air 07/09/16 08:10 71 07/09/16 08:02 98.1 18 107/54 95 Room Air 07/09/16 04:40 98.0 70 20 99/57 95 Room Air 07/09/16 03:42 69 07/09/16 00:15 98.0 73 20 110/62 97 Room Air 07/09/16 00:01 72 07/08/16 20:00 97.9 71 18 124/72 100 Room Air 07/08/16 20:00 76 07/08/16 16:00 72 07/08/16 16:00 97.6 67 18 121/63 98 Room Air Intake and Output 07/08/16 07/09/16 19:00 07:00 Intake Total 610.000 ml 830 ml Balance 610.000 ml 830 ml Intake Oral 360 ml 480 ml IV Total 250.000 ml 350 ml # Voids 2 5 Laboratory Tests 07/09/16 10:30: Vancomycin Level Trough 3.8L Height (Feet): 5 Height (Inches): 10.00 Weight (Pounds): 190 General Appearance: no apparent distress EENT: normal ENT inspection Neck: normal inspection Cardiovascular: regular rhythm Respiratory/Chest: chest wall non-tender Abdomen: non tender Extremities: non-tender Edema: 1+ Leg (L), 1+ Leg (R) Edema: mild edema Neurologic: alert Skin: warm/dry Elijah Montes Jul 09, 2016 12:39
[2016-07-09 16:33] VITALS: BP 126/72
--- NOTE | 2016-07-09 16:43 | Cardiac Electrophysiology PN ---
Assessment/Plan Status: stable, progressing Status Narrative Mr. Bruner is hemodynamically stable, with no chest pain or dyspnea. Sinus rates have decreased to normal. ECHO w preserved LV function, mild LVH and no signif valve abnl - no regurgitant lesions or apparent vegetations 1 + bld cx noted w/ coag neg staph on 07/04 - ? contaminant; other bld cx negative from 07/04 and 07/07 Assessment/Plan Will dc telemetry monitoring, as rhythm stable - NSR No further cardiac w/u indicated. Management of possible coag neg staph bacteremia per ID Will see prn. Pls recontact if new cardiac issues arise. Subjective ROS Limited/Unobtainable: No Subjective Mr Bruner is alert/ no c/o Objective Last 24 Hour Vital Signs Date Time Temp Pulse Resp B/P Pulse Ox O2 Delivery O2 Flow Rate FiO2 07/09/16 12:00 73 07/09/16 11:55 97.9 72 18 108/58 97 Room Air 07/09/16 08:10 71 07/09/16 08:02 98.1 18 107/54 95 Room Air 07/09/16 04:40 98.0 70 20 99/57 95 Room Air 07/09/16 03:42 69 07/09/16 00:15 98.0 73 20 110/62 97 Room Air 07/09/16 00:01 72 07/08/16 20:00 97.9 71 18 124/72 100 Room Air 07/08/16 20:00 76 General Appearance: WD/WN, no apparent distress, alert EENT: normal ENT inspection Neck: non-tender, supple, no JVD Rhythm: NSR Cardiovascular: normal peripheral pulses, normal rate, regular rhythm Respiratory/Chest: lungs clear Abdomen: normal bowel sounds, non tender, soft Extremities: no swelling Intake and Output 07/08/16 07/09/16 19:00 07:00 Intake Total 610.000 ml 830 ml Balance 610.000 ml 830 ml Intake Oral 360 ml 480 ml IV Total 250.000 ml 350 ml # Voids 2 5 Laboratory Tests Test 07/09/16 10:30 Vancomycin Level Trough 3.8 ug/mL (5.0-12.0) L Microbiology Date/Time Source Procedure Growth Status 07/07/16 10:00 Blood Blood Culture - Preliminary Staphylococcus Sp Coag Neg Resulted 07/07/16 09:50 Blood Blood Culture - Preliminary NO GROWTH AFTER 24 HOURS Resulted MARTHA CHAN Jul 09, 2016 16:43
--- NOTE | 2016-07-09 17:26 | Infectious Diseases Prog Note ---
Assessment/Plan Problems: (1) Sepsis Assessment & Plan: with coag negative staph , continue vancomycin , stop ertapenem , echo ruled out vegetations (2) Fever Assessment & Plan: resolved , due to sepsis in drug abuser, continue tylenol prn (3) Amphetamine abuse Assessment & Plan: recommend counseling, needs screening for HIV, and Hepatitis (4) VRE (vancomycin resistant enterococcus) culture positive Assessment & Plan: keep in contact isolation Subjective Constitutional: Reports: no symptoms HEENT: Reports: no symptoms Respiratory: Reports: no symptoms Breasts: Reports: no symptoms Cardiovascular: Reports: no symptoms Gastrointestinal/Abdominal: Reports: no symptoms Genitourinary: Reports: no symptoms Neurologic: Reports: no symptoms Psychiatric: Reports: no symptoms Skin: Reports: no symptoms Endocrine: Reports: no symptoms Hematologic: Reports: no symptoms Allergies: Coded Allergies: PENICILLINS (Verified Allergy, Unknown, 07/05/16) Subjective he was alert and comfortable, denied any fever Objective Vital Signs Last 24 Hour Vital Signs Date Time Temp Pulse Resp B/P Pulse Ox O2 Delivery O2 Flow Rate FiO2 07/09/16 16:33 98.4 17 126/72 100 Room Air 07/09/16 12:00 73 07/09/16 11:55 97.9 72 18 108/58 97 Room Air 07/09/16 08:10 71 07/09/16 08:02 98.1 18 107/54 95 Room Air 07/09/16 04:40 98.0 70 20 99/57 95 Room Air 07/09/16 03:42 69 07/09/16 00:15 98.0 73 20 110/62 97 Room Air 07/09/16 00:01 72 07/08/16 20:00 97.9 71 18 124/72 100 Room Air 07/08/16 20:00 76 Height (Feet): 5 Height (Inches): 10.00 Weight (Pounds): 190 General Appearance: WD/WN, no acute distress HEENT: normocephalic, atraumatic, anicteric, mucous membranes moist Respiratory/Chest: chest wall non-tender, lungs clear, normal breath sounds, no respiratory distress, no accessory muscle use Cardiovascular: normal peripheral pulses, normal rate, regular rhythm, no gallop/murmur Abdomen: normal bowel sounds, soft, non tender, no organomegaly, non distended , no mass Extremities: no cyanosis, no clubbing Skin: no rash, no lesions, no ulcers Microbiology Date/Time Source Procedure Growth Status 07/07/16 10:00 Blood Blood Culture - Preliminary Staphylococcus Sp Coag Neg Resulted 07/07/16 09:50 Blood Blood Culture - Preliminary NO GROWTH AFTER 24 HOURS Resulted Laboratory Tests Test 07/09/16 10:30 Vancomycin Level Trough 3.8 ug/mL (5.0-12.0) L Current Medications Medications (Trade) Dose Ordered Sig/Elizabeth Route PRN Reason Start Time Stop Time Status Last Admin Dose Admin Acetaminophen (Tylenol) 500 mg Q4H PRN ORAL Mild Pain/Temp > 100.5 07/06/16 22:45 08/05/16 22:44 Acetaminophen/ Hydrocodone Bitart ([place] 10/325) 1 ea Q6HR PRN ORAL For Pain 07/04/16 17:45 07/11/16 17:44 Ertapenem/Sodium Chloride (INVanz/Sodium Chloride 100ml bag) 100 ml @ 100 mls/hr Q24H INJ 07/08/16 00:00 07/13/16 00:00 07/09/16 01:00 Guaifenesin/ Dextromethorphan 10 ml 10 ml Q4H PRN ORAL For Cough 07/06/16 22:45 08/05/16 22:44 Heparin Sodium (Porcine) (Heparin 5000 units/ml) 5,000 units EVERY 8 HOURS SUBQ 07/05/16 22:00 08/04/16 21:59 07/09/16 15:41 Lorazepam (Ativan 2mg/ml 1ml) 1 mg Q6H PRN IV Agitation 07/04/16 18:00 07/11/16 17:59 Vancomycin HCl 1 ea 1 ea DAILY PRN MISC RX PER PROTOCOL 07/08/16 13:30 08/07/16 13:29 Vancomycin HCl 2 gm/Dextrose 500 ml @ 166.667 mls/hr ONCE IVPB 07/09/16 20:00 07/09/16 20:01 Vancomycin HCl/ Dextrose (Vancomycin/D5W 250ml) 250 ml @ 167 mls/hr Q8HR@0000,0800,1600 IVPB 07/10/16 08:00 07/15/16 07:59 Ernst Geller M.D. Jul 09, 2016 17:26
--- NOTE | 2016-07-09 18:05 | General Progress Note ---
Assessment/Plan Problem List: (1) Amphetamine abuse ICD Codes: F15.10 - Other stimulant abuse, uncomplicated SNOMED: 10150532 (2) Opiate overdose ICD Codes: T40.601A - Poisoning by unspecified narcotics, accidental ( unintentional), initial encounter SNOMED: 008794582 Qualifiers: Qualified Codes: T40.601A - Poisoning by unspecified narcotics, accidental ( unintentional), initial encounter (3) Acute encephalopathy ICD Codes: G93.40 - Encephalopathy, unspecified SNOMED: 8707929 (4) VRE (vancomycin resistant enterococcus) culture positive ICD Codes: Z22.39 - Carrier of other specified bacterial diseases SNOMED: 342978371 Assessment/Plan Management of possible coag neg staph bacteremia per ID Mild Anemia - Monitor H/H Encephalopathy - Monitor neuro status - Neurology f/u Poly substance abuse - Drug rehab rec Hypokalemia - will replace K DC plan Subjective Constitutional: Denies: chills, diaphoresis, fever, malaise, other, weakness HEENT: Denies: blurred vision, double vision, ear discharge, ear pain, eye pain , mouth pain, mouth swelling, nose congestion, nose pain, other, tearing, throat pain, throat swelling Respiratory: Denies: SOB at rest, SOB with excertion, cough, no symptoms, orthopnea, other, shortness of breath, sputum, stridor, wheezing Genitourinary: Denies: burning, discharge, flank pain, frequency, hematuria, incontinence, no symptoms, other, pain, urgency Neurologic/Psychiatric: Denies: anxiety, depressed, emotional problems, headache, no symptoms, numbness, other, paresthesia, pre-existing deficit, seizure, tingling, tremors, weakness Endocrine: Denies: excessive sweating, flushing, increased hunger, increased thirst, increased urine, intolerance to cold, intolerance to heat, no symptoms, other, unexplained weight gain, unexplained weight loss Hematologic/Lymphatic: Denies: anemia, easy bleeding, easy bruising, no symptoms, other Allergies: Coded Allergies: PENICILLINS (Verified Allergy, Unknown, 07/05/16) Subjective In bed, in no distress, denies discomfort Objective Last 24 Hour Vital Signs Date Time Temp Pulse Resp B/P Pulse Ox O2 Delivery O2 Flow Rate FiO2 07/09/16 16:33 98.4 17 126/72 100 Room Air 07/09/16 12:00 73 07/09/16 11:55 97.9 72 18 108/58 97 Room Air 07/09/16 08:10 71 07/09/16 08:02 98.1 18 107/54 95 Room Air 07/09/16 04:40 98.0 70 20 99/57 95 Room Air 07/09/16 03:42 69 07/09/16 00:15 98.0 73 20 110/62 97 Room Air 07/09/16 00:01 72 07/08/16 20:00 97.9 71 18 124/72 100 Room Air 07/08/16 20:00 76 Intake and Output 07/08/16 07/09/16 19:00 07:00 Intake Total 610.000 ml 830 ml Balance 610.000 ml 830 ml Intake Oral 360 ml 480 ml IV Total 250.000 ml 350 ml # Voids 2 5 Laboratory Tests 07/09/16 10:30: Vancomycin Level Trough 3.8L Height (Feet): 5 Height (Inches): 10.00 Weight (Pounds): 190 General Appearance: no apparent distress, alert Neck: non-tender, normal alignment, supple Cardiovascular: normal rate, regular rhythm, no JVD Respiratory/Chest: lungs clear, normal breath sounds, no respiratory distress Abdomen: non tender, soft, no organomegaly Pelvis: normal external exam Extremities: normal range of motion, non-tender, normal inspection, no calf tenderness Neurologic: alert, oriented x 3, responsive, normal mood/affect Skin: normal pigmentation, warm/dry Ca Riggs N.P. Jul 09, 2016 18:05
[2016-07-09 20:00] VITALS: BP 128/68
[2016-07-09] MEDS ORDERED: D5W IVPB SCH (20:00)
[2016-07-09] MEDS ORDERED: VANCOMYCIN IVPB SCH (20:00)
[2016-07-10] VITALS: BP 91/50
[2016-07-10 04:00] VITALS: BP 98/52
[2016-07-10] MEDS: Heparin 5000 units/ml inj SUBQ SCH ×3 (06:53→22:02)
--- NOTE | 2016-07-10 07:28 | General Progress Note ---
Assessment/Plan Assessment/Plan Assessment: # Anemia 2/2 chronic disease - is mild, has improved # Leukopenia - likely med related, now is stable # Narcotic overdose, heroin # Encephalopathy # Transaminitis # Sinus tachycardia Recommendations: - Monitor counts - s/p neupogen on 07/04/16 - Imaging of abdomen PENDING - Hepatitis and HIV panel are negative for infection - Medications reviewed - Follow cards, ID recommendations - Consider psych eval - DVT ppx with heparin sq - DW Staff Sincerely, Elijah Montes MD Subjective Constitutional: Reports: no symptoms HEENT: Reports: no symptoms Cardiovascular: Reports: no symptoms Respiratory: Reports: no symptoms Gastrointestinal/Abdominal: Reports: poor appetite Genitourinary: Reports: no symptoms Neurologic/Psychiatric: Reports: no symptoms Endocrine: Reports: no symptoms Hematologic/Lymphatic: Reports: anemia Allergies: Coded Allergies: PENICILLINS (Verified Allergy, Unknown, 07/05/16) Subjective stable, no events, is without fevers or chills, not bleeding Objective Last 24 Hour Vital Signs Date Time Temp Pulse Resp B/P Pulse Ox O2 Delivery O2 Flow Rate FiO2 07/10/16 04:00 98.2 87 19 98/52 95 Room Air 07/10/16 00:00 99.5 70 19 91/50 94 Room Air 07/09/16 20:00 96.4 89 18 128/68 96 Room Air 07/09/16 16:33 98.4 17 126/72 100 Room Air 07/09/16 16:00 76 07/09/16 12:00 73 07/09/16 11:55 97.9 72 18 108/58 97 Room Air 07/09/16 08:10 71 07/09/16 08:02 98.1 18 107/54 95 Room Air Intake and Output 07/09/16 07/10/16 19:00 07:00 Intake Total 1230 ml 840 ml Balance 1230 ml 840 ml Intake Oral 980 ml 840 ml IV Total 250 ml # Voids 3 3 # Bowel Movements 1 Laboratory Tests 07/09/16 10:30: Vancomycin Level Trough 3.8L Height (Feet): 5 Height (Inches): 10.00 Weight (Pounds): 190 General Appearance: alert EENT: TMs normal Neck: supple Cardiovascular: normal rate Respiratory/Chest: lungs clear Abdomen: soft Extremities: normal inspection Edema: 1+ Leg (L), 1+ Leg (R) Edema: mild edema Neurologic: alert Skin: warm/dry Elijah Montes Jul 10, 2016 07:28
[2016-07-10 08:00] VITALS: BP 109/64
[2016-07-10] MEDS ORDERED: Vancomycin 1gm/D5W 250ml IVPB SCH ×2 (08:00)
[2016-07-10 09:38] LABS: BASOPHILS % (AUTO) 0.8 % (0.0-2.0); EOSINOPHILS % (AUTO) 4.5 % (0.0-3.0); LYMPHOCYTES % (AUTO) 42.2 % (20.0-45.0); MEAN CORPUSCULAR HEMOGLOBIN 29.6 PG (27.0-31.0); MEAN CORPUSCULAR HGB CONC 33.5 G/DL (32.0-36.0); MEAN CORPUSCULAR VOLUME 89 FL (80-99); MEAN PLATELET VOLUME 6.3 FL (6.5-10.1); MONOCYTES % (AUTO) 7.8 % (1.0-10.0); NEUTROPHILS % (AUTO) 44.7 % (45.0-75.0); PLATELET COUNT 382 K/UL (150-450); RED BLOOD COUNT 4.62 M/UL (4.70-6.10); RED CELL DISTRIBUTION WIDTH 12.1 % (11.6-14.8); WHITE BLOOD COUNT 6.6 K/UL (4.8-10.8)
[2016-07-10 09:48] LABS: ANION GAP 15 (5-15); CALCIUM 8.9 mg/dL (8.6-10.2); CARBON DIOXIDE 24 mEQ/L (20-30); CHLORIDE 99 mEQ/L (98-107); CREATININE 0.6 mg/dL (0.7-1.2); GLOMERULAR FILTRATION RATE > 60 mL/min (>60); HEMOLYSIS 8; POTASSIUM 4.1 mEQ/L (3.4-4.9); SODIUM 138 mEQ/L (135-145)
--- NOTE | 2016-07-10 10:24 | Cardiology Report ---
APPROVED REPORT EXAM: Two-dimensional and M-mode echocardiogram with Doppler and color Doppler. INDICATION Tachycardia Technically difficult study due to poor acoustical windows. Normal left ventricular chamber size, systolic function and wall motion to extent visualized. Left ventricular ejection fraction estimated to be 55-60 %. Mild left ventricular hypertrophy. Anterior Echo-free space, may be due to pericardial fat or effusion. All other cardiac chamber sizes are within normal limits. Focal aortic valve sclerosis with adequate cusp excursion. Thickened mitral valve leaflets with normal excursion. Mitral annulus and aortic root calcification. Pulmonic valve not well visualized. Normal tricuspid valve structure. IVC at normal size with physiologic collapse. A color flow and spectral Doppler study was performed and revealed: Trace mitral regurgitation. Mitral diastolic velocities suggest reduced left ventricular relaxation c/w mild LV diastolic dysfunction (Grade I ). Trace tricuspid regurgitation. RVSP not obtained due to very low level of tricuspid regurgitation.
--- NOTE | 2016-07-10 10:25 | Diagnostic Imaging Report ---
Indication: COUGH, chest pain Technique: One view of the chest Comparison: none Findings: There is extensive bilateral diffuse interstitial disease. No focal airspace consolidation. Heart size is normal. Pleural spaces are clear Impression: Bilateral diffuse interstitial disease. Nonspecific, may reflect acute edema or inflammatory change, versus chronic interstitial changes. Correlate with clinical findings
[2016-07-10 12:00] VITALS: BP 110/60
[2016-07-10] MEDS ORDERED: DAPTOMYCIN IV ONE (12:00)
[2016-07-10] MEDS ORDERED: NS IV ONE (12:00)
--- NOTE | 2016-07-10 13:36 | General Progress Note ---
Assessment/Plan Problem List: (1) Amphetamine abuse ICD Codes: F15.10 - Other stimulant abuse, uncomplicated SNOMED: 86359240 (2) Opiate overdose ICD Codes: T40.601A - Poisoning by unspecified narcotics, accidental ( unintentional), initial encounter SNOMED: 373449437 Qualifiers: Qualified Codes: T40.601A - Poisoning by unspecified narcotics, accidental ( unintentional), initial encounter (3) Acute encephalopathy ICD Codes: G93.40 - Encephalopathy, unspecified SNOMED: 2041690 (4) VRE (vancomycin resistant enterococcus) culture positive ICD Codes: Z22.39 - Carrier of other specified bacterial diseases SNOMED: 081677037 Assessment/Plan Management of possible coag neg staph bacteremia per ID Mild Anemia - Monitor H/H Encephalopathy - Monitor neuro status - Neurology f/u Poly substance abuse - Drug rehab rec Hypokalemia - will replace K DC plan Subjective Constitutional: Denies: chills, diaphoresis, fever, malaise, no symptoms, other , weakness HEENT: Denies: blurred vision, double vision, ear discharge, ear pain, eye pain , mouth pain, mouth swelling, no symptoms, nose congestion, nose pain, other, tearing, throat pain, throat swelling Cardiovascular: Denies: chest pain, edema, irregular heart rate, lightheadedness, no symptoms, other, palpitations, syncope Respiratory: Denies: SOB at rest, SOB with excertion, cough, no symptoms, orthopnea, other, shortness of breath, sputum, stridor, wheezing Gastrointestinal/Abdominal: Denies: abdomen distended, abdominal pain, black stools, blood in stool, constipated, diarrhea, difficulty swallowing, nausea, no symptoms, other, poor appetite, poor fluid intake, rectal bleeding, tarry stools, vomiting Genitourinary: Denies: burning, discharge, flank pain, frequency, hematuria, incontinence, no symptoms, other, pain, urgency Neurologic/Psychiatric: Denies: anxiety, depressed, emotional problems, headache, no symptoms, numbness, other, paresthesia, pre-existing deficit, seizure, tingling, tremors, weakness Endocrine: Denies: excessive sweating, flushing, increased hunger, increased thirst, increased urine, intolerance to cold, intolerance to heat, no symptoms, other, unexplained weight gain, unexplained weight loss Hematologic/Lymphatic: Denies: anemia, easy bleeding, easy bruising, no symptoms, other Allergies: Coded Allergies: PENICILLINS (Verified Allergy, Unknown, 07/05/16) Subjective In bed, in no distress, denies discomfort, wants to go home Objective Last 24 Hour Vital Signs Date Time Temp Pulse Resp B/P Pulse Ox O2 Delivery O2 Flow Rate FiO2 07/10/16 12:00 98.2 72 20 110/60 95 Room Air 07/10/16 08:00 98.2 73 20 109/64 100 Room Air 07/10/16 04:00 98.2 87 19 98/52 95 Room Air 07/10/16 00:00 99.5 70 19 91/50 94 Room Air 07/09/16 20:00 96.4 89 18 128/68 96 Room Air 07/09/16 16:33 98.4 17 126/72 100 Room Air 07/09/16 16:00 76 Intake and Output 07/09/16 07/10/16 19:00 07:00 Intake Total 1230 ml 840 ml Balance 1230 ml 840 ml Intake Oral 980 ml 840 ml IV Total 250 ml # Voids 3 3 # Bowel Movements 1 Laboratory Tests 07/10/16 06:45: Sodium Level 138, Potassium Level 4.1, Chloride Level 99, Carbon Dioxide Level 24, Anion Gap 15, Blood Urea Nitrogen 8, Creatinine 0.6L, Estimat Glomerular Filtration Rate > 60, Glucose Level 93, Calcium Level 8.9 07/10/16 07:45: White Blood Count 6.6, Red Blood Count 4.62L, Hemoglobin 13.7L, Hematocrit 40.9L , Mean Corpuscular Volume 89, Mean Corpuscular Hemoglobin 29.6, Mean Corpuscular Hemoglobin Concent 33.5, Red Cell Distribution Width 12.1, Platelet Count 382, Mean Platelet Volume 6.3L, Neutrophils (%) (Auto) 44.7L, Lymphocytes (%) (Auto) 42.2, Monocytes (%) (Auto) 7.8, Eosinophils (%) (Auto) 4.5H, Basophils (%) (Auto) 0.8 Height (Feet): 5 Height (Inches): 10.00 Weight (Pounds): 190 General Appearance: no apparent distress, alert EENT: normal ENT inspection, TMs normal Neck: normal alignment, supple, normal inspection Cardiovascular: normal rate, regular rhythm, no JVD Respiratory/Chest: lungs clear, normal breath sounds, no respiratory distress Abdomen: non tender, soft, no organomegaly Pelvis: normal external exam Extremities: normal range of motion, non-tender Neurologic: alert, oriented x 3, responsive, normal mood/affect Skin: normal pigmentation, warm/dry Ca Riggs N.P. Jul 10, 2016 13:36
[2016-07-10 16:19] VITALS: BP 119/62
[2016-07-10] MEDS ORDERED: Tubing IV Secondary IV ONE ×3 (16:53→22:35)
[2016-07-10] MEDS ORDERED: NS 275ml ONE ×3 (16:53→22:35)
--- NOTE | 2016-07-10 17:50 | Infectious Diseases Prog Note ---
Assessment/Plan Problems: (1) Sepsis Assessment & Plan: with coag negative staph , spiked fever while on vancomycin . with crystal of 2 for the coag negative staph he grew from the blood, will stop vancomycin, and start daptomycin , echo ruled out vegetations, but need to rule out endocarditis since he is a high risk patient with active IVDU, will order MARJORIE (2) Fever Assessment & Plan: recurrent . on vancomycin , suspect resistant coag negative staph, will switch to daptomycin, continue Tylenol prn (3) Amphetamine abuse Assessment & Plan: recommend counseling, needs screening for HIV, and Hepatitis (4) VRE (vancomycin resistant enterococcus) culture positive Assessment & Plan: keep in contact isolation Subjective Constitutional: Reports: no symptoms HEENT: Reports: no symptoms Respiratory: Reports: no symptoms Cardiovascular: Reports: no symptoms Gastrointestinal/Abdominal: Reports: no symptoms Genitourinary: Reports: no symptoms Neurologic: Reports: no symptoms Psychiatric: Reports: no symptoms Skin: Reports: no symptoms Endocrine: Reports: no symptoms Hematologic: Reports: no symptoms Allergies: Coded Allergies: PENICILLINS (Verified Allergy, Unknown, 07/05/16) Subjective he was doing well, alert and comfortable, denied any fever or chills, no cough or SOB. Objective Vital Signs Last 24 Hour Vital Signs Date Time Temp Pulse Resp B/P Pulse Ox O2 Delivery O2 Flow Rate FiO2 07/10/16 16:19 97.7 89 18 119/62 98 Room Air 07/10/16 12:00 98.2 72 20 110/60 95 Room Air 07/10/16 08:00 98.2 73 20 109/64 100 Room Air 07/10/16 04:00 98.2 87 19 98/52 95 Room Air 07/10/16 00:00 99.5 70 19 91/50 94 Room Air 07/09/16 20:00 96.4 89 18 128/68 96 Room Air Height (Feet): 5 Height (Inches): 10.00 Weight (Pounds): 190 General Appearance: WD/WN, no acute distress HEENT: normocephalic, atraumatic, anicteric, mucous membranes moist Respiratory/Chest: chest wall non-tender, lungs clear, normal breath sounds, no respiratory distress, no accessory muscle use Cardiovascular: normal peripheral pulses, normal rate, regular rhythm, no gallop/murmur Abdomen: normal bowel sounds, soft, non tender, no organomegaly, non distended , no mass Extremities: no cyanosis, no clubbing Skin: no rash, no lesions, no ulcers Laboratory Tests Test 07/10/16 06:45 07/10/16 07:45 Sodium Level 138 mEQ/L (135-145) Potassium Level 4.1 mEQ/L (3.4-4.9) Chloride Level 99 mEQ/L (98-107) Carbon Dioxide Level 24 mEQ/L (20-30) Anion Gap 15 (5-15) Blood Urea Nitrogen 8 mg/dL (7-23) Creatinine 0.6 mg/dL (0.7-1.2) L Estimat Glomerular Filtration Rate > 60 mL/min (>60) Glucose Level 93 mg/dL (74-106) Calcium Level 8.9 mg/dL (8.6-10.2) White Blood Count 6.6 K/UL (4.8-10.8) Red Blood Count 4.62 M/UL (4.70-6.10) L Hemoglobin 13.7 G/DL (14.2-18.0) L Hematocrit 40.9 % (42.0-52.0) L Mean Corpuscular Volume 89 FL (80-99) Mean Corpuscular Hemoglobin 29.6 PG (27.0-31.0) Mean Corpuscular Hemoglobin Concent 33.5 G/DL (32.0-36.0) Red Cell Distribution Width 12.1 % (11.6-14.8) Platelet Count 382 K/UL (150-450) Mean Platelet Volume 6.3 FL (6.5-10.1) L Neutrophils (%) (Auto) 44.7 % (45.0-75.0) L Lymphocytes (%) (Auto) 42.2 % (20.0-45.0) Monocytes (%) (Auto) 7.8 % (1.0-10.0) Eosinophils (%) (Auto) 4.5 % (0.0-3.0) H Basophils (%) (Auto) 0.8 % (0.0-2.0) Current Medications Medications (Trade) Dose Ordered Sig/Elizabeth Route PRN Reason Start Time Stop Time Status Last Admin Dose Admin Acetaminophen (Tylenol) 500 mg Q4H PRN ORAL Mild Pain/Temp > 100.5 07/06/16 22:45 08/05/16 22:44 Acetaminophen/ Hydrocodone Bitart ([place] 10/325) 1 ea Q6HR PRN ORAL For Pain 07/04/16 17:45 07/11/16 17:44 Guaifenesin/ Dextromethorphan (Robitussin DM Syrup) 10 ml Q4H PRN ORAL For Cough 07/06/16 22:45 08/05/16 22:44 Heparin Sodium (Porcine) (Heparin 5000 units/ml) 5,000 units EVERY 8 HOURS SUBQ 07/05/16 22:00 08/04/16 21:59 07/10/16 14:33 Lorazepam (Ativan 2mg/ml 1ml) 1 mg Q6H PRN IV Agitation 07/04/16 18:00 07/11/16 17:59 Ernst Geller M.D. Jul 10, 2016 17:50
[2016-07-10 19:52] VITALS: BP 107/59
[2016-07-11] VITALS: BP 108/63
[2016-07-11 04:00] VITALS: BP 99/52
[2016-07-11] MEDS: Heparin 5000 units/ml inj SUBQ SCH ×3 (06:02→21:26)
[2016-07-11 08:15] VITALS: BP 97/55
[2016-07-11 09:39] LABS: BASOPHILS % (AUTO) 1.4 % (0.0-2.0); EOSINOPHILS % (AUTO) 3.4 % (0.0-3.0); LYMPHOCYTES % (AUTO) 45.1 % (20.0-45.0); MEAN CORPUSCULAR HEMOGLOBIN 29.8 PG (27.0-31.0); MEAN CORPUSCULAR HGB CONC 33.7 G/DL (32.0-36.0); MEAN CORPUSCULAR VOLUME 88 FL (80-99); MEAN PLATELET VOLUME 6.2 FL (6.5-10.1); MONOCYTES % (AUTO) 6.3 % (1.0-10.0); NEUTROPHILS % (AUTO) 43.8 % (45.0-75.0); PLATELET COUNT 419 K/UL (150-450); RED BLOOD COUNT 4.57 M/UL (4.70-6.10); WHITE BLOOD COUNT 5.7 K/UL (4.8-10.8)
[2016-07-11 09:52] LABS: ANION GAP 14 (5-15); CALCIUM 9.1 mg/dL (8.6-10.2); CARBON DIOXIDE 25 mEQ/L (20-30); CHLORIDE 101 mEQ/L (98-107); CREATININE 0.6 mg/dL (0.7-1.2); GLOMERULAR FILTRATION RATE > 60 mL/min (>60); HEMOLYSIS 4; POTASSIUM 3.8 mEQ/L (3.4-4.9); SODIUM 140 mEQ/L (135-145)
[2016-07-11] MEDS ORDERED: NS 275ml ONE (10:01)
[2016-07-11] MEDS ORDERED: Tubing IV Secondary IV ONE (10:01)
[2016-07-11 11:40] VITALS: BP 117/66
--- NOTE | 2016-07-11 12:02 | General Progress Note ---
Assessment/Plan Assessment/Plan Assessment: # Anemia 2/2 chronic disease - is mild, has improved # Leukopenia - likely med related, now is stable # Narcotic overdose, heroin # Encephalopathy - more alert today # Transaminitis # Sinus tachycardia Recommendations: - Monitor counts - s/p neupogen on 07/04/16 - Imaging of abdomen PENDING - Hepatitis and HIV panel are negative - Medications reviewed - Follow cards, ID recommendations - Consider psych eval - DVT ppx with heparin sq - DW Staff Sincerely, Elijah Montes MD Subjective Constitutional: Reports: no symptoms HEENT: Reports: no symptoms Cardiovascular: Reports: no symptoms Respiratory: Reports: no symptoms Gastrointestinal/Abdominal: Reports: no symptoms Genitourinary: Reports: no symptoms Neurologic/Psychiatric: Reports: no symptoms Endocrine: Reports: no symptoms Hematologic/Lymphatic: Reports: anemia Allergies: Coded Allergies: PENICILLINS (Verified Allergy, Unknown, 07/05/16) Subjective stable, no events, MUCH more alert today Objective Last 24 Hour Vital Signs Date Time Temp Pulse Resp B/P Pulse Ox O2 Delivery O2 Flow Rate FiO2 07/11/16 11:40 98.0 61 19 117/66 97 Room Air 07/11/16 08:15 98.2 69 19 97/55 98 Room Air 07/11/16 04:00 97.9 74 18 99/52 95 Room Air 07/11/16 00:00 98.2 71 18 108/63 95 Room Air 07/10/16 19:52 98.1 75 18 107/59 98 Room Air 07/10/16 16:19 97.7 89 18 119/62 98 Room Air Intake and Output 07/10/16 07/11/16 19:00 07:00 Intake Total 800 ml 720 ml Balance 800 ml 720 ml Intake Oral 500 ml 720 ml IV Total 300 ml # Voids 2 3 # Bowel Movements 1 Laboratory Tests 07/11/16 09:00: White Blood Count 5.7, Red Blood Count 4.57L, Hemoglobin 13.6L, Hematocrit 40.4L , Mean Corpuscular Volume 88, Mean Corpuscular Hemoglobin 29.8, Mean Corpuscular Hemoglobin Concent 33.7, Red Cell Distribution Width 12.0, Platelet Count 419, Mean Platelet Volume 6.2L, Neutrophils (%) (Auto) 43.8L, Lymphocytes (%) (Auto) 45.1H, Monocytes (%) (Auto) 6.3, Eosinophils (%) (Auto) 3.4H, Basophils (%) (Auto) 1.4, Sodium Level 140, Potassium Level 3.8, Chloride Level 101, Carbon Dioxide Level 25, Anion Gap 14, Blood Urea Nitrogen 10, Creatinine 0.6L, Estimat Glomerular Filtration Rate > 60, Glucose Level 110H, Calcium Level 9.1 Height (Feet): 5 Height (Inches): 10.00 Weight (Pounds): 190 General Appearance: no apparent distress EENT: normal ENT inspection Neck: supple Cardiovascular: normal rate Respiratory/Chest: lungs clear Abdomen: non tender Extremities: non-tender Edema: no edema noted Leg (L), no edema noted Leg (R) Edema: mild edema Neurologic: alert Skin: warm/dry Elijah Montes Jul 11, 2016 12:02
--- NOTE | 2016-07-11 14:23 | General Progress Note ---
Assessment/Plan Problem List: (1) Amphetamine abuse ICD Codes: F15.10 - Other stimulant abuse, uncomplicated SNOMED: 97193644 (2) Opiate overdose ICD Codes: T40.601A - Poisoning by unspecified narcotics, accidental ( unintentional), initial encounter SNOMED: 006809859 Qualifiers: Qualified Codes: T40.601A - Poisoning by unspecified narcotics, accidental ( unintentional), initial encounter (3) Acute encephalopathy ICD Codes: G93.40 - Encephalopathy, unspecified SNOMED: 9769299 (4) VRE (vancomycin resistant enterococcus) culture positive ICD Codes: Z22.39 - Carrier of other specified bacterial diseases SNOMED: 076582292 Assessment/Plan Management of possible coag neg staph bacteremia per ID Mild Anemia - Monitor H/H Encephalopathy - Monitor neuro status - Neurology f/u Poly substance abuse - Drug rehab rec Hypokalemia - will replace K DC plan Subjective Allergies: Coded Allergies: PENICILLINS (Verified Allergy, Unknown, 07/05/16) Subjective In bed, in no distress, denies discomfort, wants to go home Objective Last 24 Hour Vital Signs Date Time Temp Pulse Resp B/P Pulse Ox O2 Delivery O2 Flow Rate FiO2 07/11/16 11:40 98.0 61 19 117/66 97 Room Air 07/11/16 08:15 98.2 69 19 97/55 98 Room Air 07/11/16 04:00 97.9 74 18 99/52 95 Room Air 07/11/16 00:00 98.2 71 18 108/63 95 Room Air 07/10/16 19:52 98.1 75 18 107/59 98 Room Air 07/10/16 16:19 97.7 89 18 119/62 98 Room Air Intake and Output 07/10/16 07/11/16 19:00 07:00 Intake Total 800 ml 720 ml Balance 800 ml 720 ml Intake Oral 500 ml 720 ml IV Total 300 ml # Voids 2 3 # Bowel Movements 1 Laboratory Tests 07/11/16 09:00: White Blood Count 5.7, Red Blood Count 4.57L, Hemoglobin 13.6L, Hematocrit 40.4L , Mean Corpuscular Volume 88, Mean Corpuscular Hemoglobin 29.8, Mean Corpuscular Hemoglobin Concent 33.7, Red Cell Distribution Width 12.0, Platelet Count 419, Mean Platelet Volume 6.2L, Neutrophils (%) (Auto) 43.8L, Lymphocytes (%) (Auto) 45.1H, Monocytes (%) (Auto) 6.3, Eosinophils (%) (Auto) 3.4H, Basophils (%) (Auto) 1.4, Sodium Level 140, Potassium Level 3.8, Chloride Level 101, Carbon Dioxide Level 25, Anion Gap 14, Blood Urea Nitrogen 10, Creatinine 0.6L, Estimat Glomerular Filtration Rate > 60, Glucose Level 110H, Calcium Level 9.1, Total Creatine Kinase [Pending] Height (Feet): 5 Height (Inches): 10.00 Weight (Pounds): 190 Ca Riggs N.P. Jul 11, 2016 14:23
[2016-07-11 16:00] VITALS: BP 112/64
--- NOTE | 2016-07-11 16:38 | Infectious Diseases Prog Note ---
Assessment/Plan Problems: (1) Sepsis Assessment & Plan: with coag negative staph , with crystal of 2 for vancomycin , continue daptomycin for 4 weeks , echo ruled out vegetations, but need to rule out endocarditis since he is a high risk patient with active IVDU, will order MARJORIE (2) Fever Assessment & Plan: improved with daptomycin , continue Tylenol prn (3) Amphetamine abuse Assessment & Plan: recommend counseling, needs screening for HIV, and Hepatitis (4) VRE (vancomycin resistant enterococcus) culture positive Assessment & Plan: keep in contact isolation Subjective Constitutional: Reports: no symptoms HEENT: Reports: no symptoms Respiratory: Reports: no symptoms Breasts: Reports: no symptoms Cardiovascular: Reports: no symptoms Gastrointestinal/Abdominal: Reports: no symptoms Genitourinary: Reports: no symptoms Neurologic: Reports: no symptoms Psychiatric: Reports: no symptoms Skin: Reports: no symptoms Allergies: Coded Allergies: PENICILLINS (Verified Allergy, Unknown, 07/05/16) Subjective he was doing well, alert and comfortable, denied any fever or chills, no cough or SOB. Objective Vital Signs Last 24 Hour Vital Signs Date Time Temp Pulse Resp B/P Pulse Ox O2 Delivery O2 Flow Rate FiO2 07/11/16 11:40 98.0 61 19 117/66 97 Room Air 07/11/16 08:15 98.2 69 19 97/55 98 Room Air 07/11/16 04:00 97.9 74 18 99/52 95 Room Air 07/11/16 00:00 98.2 71 18 108/63 95 Room Air 07/10/16 19:52 98.1 75 18 107/59 98 Room Air Height (Feet): 5 Height (Inches): 10.00 Weight (Pounds): 190 General Appearance: WD/WN, no acute distress HEENT: normocephalic, atraumatic, anicteric, mucous membranes moist Respiratory/Chest: chest wall non-tender, lungs clear, normal breath sounds, no respiratory distress, no accessory muscle use Cardiovascular: normal peripheral pulses, normal rate, regular rhythm, no gallop/murmur Abdomen: normal bowel sounds, soft, non tender, no organomegaly, non distended , no mass, no scars Extremities: no cyanosis, no clubbing Skin: no rash, no lesions Laboratory Tests Test 07/11/16 09:00 White Blood Count 5.7 K/UL (4.8-10.8) Red Blood Count 4.57 M/UL (4.70-6.10) L Hemoglobin 13.6 G/DL (14.2-18.0) L Hematocrit 40.4 % (42.0-52.0) L Mean Corpuscular Volume 88 FL (80-99) Mean Corpuscular Hemoglobin 29.8 PG (27.0-31.0) Mean Corpuscular Hemoglobin Concent 33.7 G/DL (32.0-36.0) Red Cell Distribution Width 12.0 % (11.6-14.8) Platelet Count 419 K/UL (150-450) Mean Platelet Volume 6.2 FL (6.5-10.1) L Neutrophils (%) (Auto) 43.8 % (45.0-75.0) L Lymphocytes (%) (Auto) 45.1 % (20.0-45.0) H Monocytes (%) (Auto) 6.3 % (1.0-10.0) Eosinophils (%) (Auto) 3.4 % (0.0-3.0) H Basophils (%) (Auto) 1.4 % (0.0-2.0) Sodium Level 140 mEQ/L (135-145) Potassium Level 3.8 mEQ/L (3.4-4.9) Chloride Level 101 mEQ/L (98-107) Carbon Dioxide Level 25 mEQ/L (20-30) Anion Gap 14 (5-15) Blood Urea Nitrogen 10 mg/dL (7-23) Creatinine 0.6 mg/dL (0.7-1.2) L Estimat Glomerular Filtration Rate > 60 mL/min (>60) Glucose Level 110 mg/dL (74-106) H Calcium Level 9.1 mg/dL (8.6-10.2) Total Creatine Kinase 48 U/L (38-174) Current Medications Medications (Trade) Dose Ordered Sig/Elizabeth Route PRN Reason Start Time Stop Time Status Last Admin Dose Admin Acetaminophen (Tylenol) 500 mg Q4H PRN ORAL Mild Pain/Temp > 100.5 07/06/16 22:45 08/05/16 22:44 Acetaminophen/ Hydrocodone Bitart ([place] 10/325) 1 ea Q6HR PRN ORAL For Pain 07/04/16 17:45 07/11/16 17:44 Guaifenesin/ Dextromethorphan (Robitussin DM Syrup) 10 ml Q4H PRN ORAL For Cough 07/06/16 22:45 08/05/16 22:44 Heparin Sodium (Porcine) (Heparin 5000 units/ml) 5,000 units EVERY 8 HOURS SUBQ 07/05/16 22:00 08/04/16 21:59 07/11/16 06:02 Lorazepam (Ativan 2mg/ml 1ml) 1 mg Q6H PRN IV Agitation 07/04/16 18:00 07/11/16 17:59 Ernst Geller M.D. Jul 11, 2016 16:38
[2016-07-11 19:00] VITALS: BP 113/61
[2016-07-11] MEDS: DAPTOmycin 650 MG in NS 50 ML IV SCH (21:25)
[2016-07-12] VITALS: BP 96/52
[2016-07-12 04:00] VITALS: BP 98/55
[2016-07-12] MEDS: Heparin 5000 units/ml inj SUBQ SCH ×3 (05:49→22:22)
[2016-07-12 08:00] VITALS: BP 97/54
[2016-07-12 09:19] LABS: EOSINOPHILS % (AUTO) 2.1 % (0.0-3.0); MEAN CORPUSCULAR HEMOGLOBIN 29.2 PG (27.0-31.0); MEAN CORPUSCULAR HGB CONC 33.1 G/DL (32.0-36.0); MEAN CORPUSCULAR VOLUME 88 FL (80-99); MEAN PLATELET VOLUME 5.9 FL (6.5-10.1); MONOCYTES % (AUTO) 5.1 % (1.0-10.0); NEUTROPHILS % (AUTO) 44.8 % (45.0-75.0); PLATELET COUNT 486 K/UL (150-450); RED BLOOD COUNT 4.71 M/UL (4.70-6.10); RED CELL DISTRIBUTION WIDTH 11.9 % (11.6-14.8); WHITE BLOOD COUNT 6.5 K/UL (4.8-10.8)
[2016-07-12 09:40] LABS: ANION GAP 15 (5-15); CARBON DIOXIDE 25 mEQ/L (20-30); CHLORIDE 99 mEQ/L (98-107); CREATININE 0.6 mg/dL (0.7-1.2); GLOMERULAR FILTRATION RATE > 60 mL/min (>60); HEMOLYSIS 7; SODIUM 139 mEQ/L (135-145)
[2016-07-12 12:00] VITALS: BP 112/57
[2016-07-12 16:00] VITALS: BP 94/59
--- NOTE | 2016-07-12 16:57 | General Progress Note ---
Assessment/Plan Assessment/Plan Assessment: # Anemia 2/2 chronic disease - is mild # Leukopenia - likely med related, now is stable # Narcotic overdose, heroin # Encephalopathy - more alert today # Transaminitis # Sinus tachycardia Recommendations: - Monitor counts - s/p neupogen on 07/04/16 - Imaging of abdomen PENDING - Hepatitis and HIV panel are negative - Medications reviewed - Follow cards, ID recommendations - Consider psych eval - DVT ppx with heparin sq - DW Staff Sincerely, Elijah Montes MD Subjective Constitutional: Reports: no symptoms HEENT: Reports: no symptoms Cardiovascular: Reports: no symptoms Respiratory: Reports: no symptoms Gastrointestinal/Abdominal: Reports: no symptoms Genitourinary: Reports: no symptoms Neurologic/Psychiatric: Reports: no symptoms Endocrine: Reports: no symptoms Hematologic/Lymphatic: Reports: anemia Allergies: Coded Allergies: PENICILLINS (Verified Allergy, Unknown, 07/05/16) Subjective stable, no events, alert Objective Last 24 Hour Vital Signs Date Time Temp Pulse Resp B/P Pulse Ox O2 Delivery O2 Flow Rate FiO2 07/12/16 12:00 98.5 61 16 112/57 96 Room Air 07/12/16 08:00 98.7 63 17 97/54 98 Room Air 07/12/16 04:00 98.4 69 16 98/55 97 Room Air 07/12/16 00:00 97.7 64 16 96/52 97 Room Air 07/11/16 19:00 98.4 82 20 113/61 98 Room Air Intake and Output 07/11/16 07/12/16 19:00 07:00 Intake Total 520 ml 770 ml Balance 520 ml 770 ml Intake Oral 520 ml 720 ml IV Total 50 ml # Voids 3 4 Laboratory Tests 07/12/16 08:00: Folate [Pending] 07/12/16 08:20: White Blood Count 6.5, Red Blood Count 4.71, Hemoglobin 13.8L, Hematocrit 41.6L , Mean Corpuscular Volume 88, Mean Corpuscular Hemoglobin 29.2, Mean Corpuscular Hemoglobin Concent 33.1, Red Cell Distribution Width 11.9, Platelet Count 486H, Mean Platelet Volume 5.9L, Neutrophils (%) (Auto) 44.8L, Lymphocytes (%) (Auto) 47.0H, Monocytes (%) (Auto) 5.1, Eosinophils (%) (Auto) 2.1, Basophils (%) (Auto) 1.0, Sodium Level 139, Potassium Level 4.0, Chloride Level 99, Carbon Dioxide Level 25, Anion Gap 15, Blood Urea Nitrogen 12, Creatinine 0.6L, Estimat Glomerular Filtration Rate > 60, Glucose Level 97, Calcium Level 9.0 Height (Feet): 5 Height (Inches): 10.00 Weight (Pounds): 190 General Appearance: no apparent distress EENT: normal ENT inspection Neck: normal alignment Cardiovascular: normal rate Respiratory/Chest: normal breath sounds Abdomen: no organomegaly Extremities: non-tender Edema: 1+ Leg (L), 1+ Leg (R) Neurologic: alert Skin: warm/dry Elijah Montes Jul 12, 2016 16:57
--- NOTE | 2016-07-12 17:22 | General Progress Note ---
Assessment/Plan Problem List: (1) Amphetamine abuse ICD Codes: F15.10 - Other stimulant abuse, uncomplicated SNOMED: 85696673 (2) Opiate overdose ICD Codes: T40.601A - Poisoning by unspecified narcotics, accidental ( unintentional), initial encounter SNOMED: 208593628 Qualifiers: Qualified Codes: T40.601A - Poisoning by unspecified narcotics, accidental ( unintentional), initial encounter (3) Acute encephalopathy ICD Codes: G93.40 - Encephalopathy, unspecified SNOMED: 1743140 (4) VRE (vancomycin resistant enterococcus) culture positive ICD Codes: Z22.39 - Carrier of other specified bacterial diseases SNOMED: 460616380 Assessment/Plan Management of possible coag neg staph bacteremia, abx per ID Mild Anemia - Monitor H/H Encephalopathy - Monitor neuro status - Improved Poly substance abuse - Drug rehab rec DC plan Subjective Constitutional: Denies: chills, diaphoresis, fever, malaise, no symptoms, other , weakness HEENT: Denies: blurred vision, double vision, ear discharge, ear pain, eye pain , mouth pain, mouth swelling, no symptoms, nose congestion, nose pain, other, tearing, throat pain, throat swelling Cardiovascular: Denies: chest pain, edema, irregular heart rate, lightheadedness, no symptoms, other, palpitations, syncope Respiratory: Denies: SOB at rest, SOB with excertion, cough, no symptoms, orthopnea, other, shortness of breath, sputum, stridor, wheezing Gastrointestinal/Abdominal: Denies: abdomen distended, abdominal pain, black stools, blood in stool, constipated, diarrhea, difficulty swallowing, nausea, no symptoms, other, poor appetite, poor fluid intake, rectal bleeding, tarry stools, vomiting Neurologic/Psychiatric: Denies: anxiety, depressed, emotional problems, headache, no symptoms, numbness, other, paresthesia, pre-existing deficit, seizure, tingling, tremors, weakness Endocrine: Denies: excessive sweating, flushing, increased hunger, increased thirst, increased urine, intolerance to cold, intolerance to heat, no symptoms, other, unexplained weight gain, unexplained weight loss Hematologic/Lymphatic: Denies: anemia, easy bleeding, easy bruising, no symptoms, other Allergies: Coded Allergies: PENICILLINS (Verified Allergy, Unknown, 07/05/16) Subjective In bed, in no distress, denies discomfort, wants to go home Objective Last 24 Hour Vital Signs Date Time Temp Pulse Resp B/P Pulse Ox O2 Delivery O2 Flow Rate FiO2 07/12/16 16:00 96.8 65 16 94/59 97 Room Air 07/12/16 12:00 98.5 61 16 112/57 96 Room Air 07/12/16 08:00 98.7 63 17 97/54 98 Room Air 07/12/16 04:00 98.4 69 16 98/55 97 Room Air 07/12/16 00:00 97.7 64 16 96/52 97 Room Air 07/11/16 19:00 98.4 82 20 113/61 98 Room Air Intake and Output 07/11/16 07/12/16 19:00 07:00 Intake Total 520 ml 770 ml Balance 520 ml 770 ml Intake Oral 520 ml 720 ml IV Total 50 ml # Voids 3 4 Laboratory Tests 07/12/16 08:00: Folate [Pending] 07/12/16 08:20: White Blood Count 6.5, Red Blood Count 4.71, Hemoglobin 13.8L, Hematocrit 41.6L , Mean Corpuscular Volume 88, Mean Corpuscular Hemoglobin 29.2, Mean Corpuscular Hemoglobin Concent 33.1, Red Cell Distribution Width 11.9, Platelet Count 486H, Mean Platelet Volume 5.9L, Neutrophils (%) (Auto) 44.8L, Lymphocytes (%) (Auto) 47.0H, Monocytes (%) (Auto) 5.1, Eosinophils (%) (Auto) 2.1, Basophils (%) (Auto) 1.0, Sodium Level 139, Potassium Level 4.0, Chloride Level 99, Carbon Dioxide Level 25, Anion Gap 15, Blood Urea Nitrogen 12, Creatinine 0.6L, Estimat Glomerular Filtration Rate > 60, Glucose Level 97, Calcium Level 9.0 Height (Feet): 5 Height (Inches): 10.00 Weight (Pounds): 190 General Appearance: no apparent distress, alert EENT: normal ENT inspection, TMs normal Neck: normal alignment, supple Cardiovascular: normal rate, regular rhythm, no JVD Respiratory/Chest: normal breath sounds Abdomen: non tender, soft, no organomegaly Extremities: normal range of motion, non-tender, normal inspection Neurologic: no motor/sensory deficits, alert, oriented x 3, responsive Skin: normal pigmentation, warm/dry Ca Riggs N.P. Jul 12, 2016 17:22
--- NOTE | 2016-07-12 17:41 | Cardiac Electrophysiology PN ---
Assessment/Plan Assessment/Plan 1. Sinus tachycardia secondary to amphetamine use. Echo normal EF. 2. Polysubstance abuse with amphetamine and opiate . 3. Leukopenia. White count improved . 4. VRE Carrier. ROMULO RN Subjective Subjective Alert in NAD. No chest pain or SOB.Transferred to nonmonitored bed. Objective Last 24 Hour Vital Signs Date Time Temp Pulse Resp B/P Pulse Ox O2 Delivery O2 Flow Rate FiO2 07/12/16 16:00 96.8 65 16 94/59 97 Room Air 07/12/16 12:00 98.5 61 16 112/57 96 Room Air 07/12/16 08:00 98.7 63 17 97/54 98 Room Air 07/12/16 04:00 98.4 69 16 98/55 97 Room Air 07/12/16 00:00 97.7 64 16 96/52 97 Room Air 07/11/16 19:00 98.4 82 20 113/61 98 Room Air Intake and Output 07/11/16 07/12/16 19:00 07:00 Intake Total 520 ml 770 ml Balance 520 ml 770 ml Intake Oral 520 ml 720 ml IV Total 50 ml # Voids 3 4 Laboratory Tests Test 07/12/16 08:00 07/12/16 08:20 Folate Pending White Blood Count 6.5 K/UL (4.8-10.8) Red Blood Count 4.71 M/UL (4.70-6.10) Hemoglobin 13.8 G/DL (14.2-18.0) L Hematocrit 41.6 % (42.0-52.0) L Mean Corpuscular Volume 88 FL (80-99) Mean Corpuscular Hemoglobin 29.2 PG (27.0-31.0) Mean Corpuscular Hemoglobin Concent 33.1 G/DL (32.0-36.0) Red Cell Distribution Width 11.9 % (11.6-14.8) Platelet Count 486 K/UL (150-450) H Mean Platelet Volume 5.9 FL (6.5-10.1) L Neutrophils (%) (Auto) 44.8 % (45.0-75.0) L Lymphocytes (%) (Auto) 47.0 % (20.0-45.0) H Monocytes (%) (Auto) 5.1 % (1.0-10.0) Eosinophils (%) (Auto) 2.1 % (0.0-3.0) Basophils (%) (Auto) 1.0 % (0.0-2.0) Sodium Level 139 mEQ/L (135-145) Potassium Level 4.0 mEQ/L (3.4-4.9) Chloride Level 99 mEQ/L (98-107) Carbon Dioxide Level 25 mEQ/L (20-30) Anion Gap 15 (5-15) Blood Urea Nitrogen 12 mg/dL (7-23) Creatinine 0.6 mg/dL (0.7-1.2) L Estimat Glomerular Filtration Rate > 60 mL/min (>60) Glucose Level 97 mg/dL (74-106) Calcium Level 9.0 mg/dL (8.6-10.2) Objective HEAD AND NECK: Showed no JVD. LUNGS: Clear. CARDIOVASCULAR: Regular S1 and S2. No gallop or murmur. ABDOMEN: Soft. EXTREMITIES: No pitting edema. SAILAJA MCPHERSON Jul 12, 2016 17:41
--- NOTE | 2016-07-12 18:17 | Infectious Diseases Prog Note ---
Assessment/Plan Problems: (1) Sepsis Assessment & Plan: with coag negative staph , with crystal of 2 for vancomycin , continue daptomycin for 4 weeks , echo ruled out vegetations, but need to rule out endocarditis since he is a high risk patient with active IVDU, will order MARJORIE (2) Fever Assessment & Plan: improved with daptomycin , continue Tylenol prn (3) Amphetamine abuse Assessment & Plan: recommend counseling, needs screening for HIV, and Hepatitis (4) VRE (vancomycin resistant enterococcus) culture positive Assessment & Plan: keep in contact isolation Subjective Constitutional: Reports: no symptoms HEENT: Reports: no symptoms Respiratory: Reports: no symptoms Breasts: Reports: no symptoms Cardiovascular: Reports: no symptoms Gastrointestinal/Abdominal: Reports: no symptoms Genitourinary: Reports: no symptoms Neurologic: Reports: no symptoms Psychiatric: Reports: no symptoms Skin: Reports: no symptoms Endocrine: Reports: no symptoms Hematologic: Reports: no symptoms Allergies: Coded Allergies: PENICILLINS (Verified Allergy, Unknown, 07/05/16) Subjective he was doing well, alert and comfortable, denied any fever or chills, no cough or SOB. Objective Vital Signs Last 24 Hour Vital Signs Date Time Temp Pulse Resp B/P Pulse Ox O2 Delivery O2 Flow Rate FiO2 07/12/16 16:00 96.8 65 16 94/59 97 Room Air 07/12/16 12:00 98.5 61 16 112/57 96 Room Air 07/12/16 08:00 98.7 63 17 97/54 98 Room Air 07/12/16 04:00 98.4 69 16 98/55 97 Room Air 07/12/16 00:00 97.7 64 16 96/52 97 Room Air 07/11/16 19:00 98.4 82 20 113/61 98 Room Air Height (Feet): 5 Height (Inches): 10.00 Weight (Pounds): 190 General Appearance: WD/WN, no acute distress HEENT: normocephalic, atraumatic, anicteric, mucous membranes moist Respiratory/Chest: chest wall non-tender, lungs clear, normal breath sounds, no respiratory distress, no accessory muscle use Cardiovascular: normal peripheral pulses, normal rate, regular rhythm, no gallop/murmur Abdomen: normal bowel sounds, soft, non tender, no organomegaly, non distended , no mass, no scars Extremities: no cyanosis, no clubbing Skin: no rash, no lesions, no ulcers Laboratory Tests Test 07/12/16 08:00 07/12/16 08:20 Folate Pending White Blood Count 6.5 K/UL (4.8-10.8) Red Blood Count 4.71 M/UL (4.70-6.10) Hemoglobin 13.8 G/DL (14.2-18.0) L Hematocrit 41.6 % (42.0-52.0) L Mean Corpuscular Volume 88 FL (80-99) Mean Corpuscular Hemoglobin 29.2 PG (27.0-31.0) Mean Corpuscular Hemoglobin Concent 33.1 G/DL (32.0-36.0) Red Cell Distribution Width 11.9 % (11.6-14.8) Platelet Count 486 K/UL (150-450) H Mean Platelet Volume 5.9 FL (6.5-10.1) L Neutrophils (%) (Auto) 44.8 % (45.0-75.0) L Lymphocytes (%) (Auto) 47.0 % (20.0-45.0) H Monocytes (%) (Auto) 5.1 % (1.0-10.0) Eosinophils (%) (Auto) 2.1 % (0.0-3.0) Basophils (%) (Auto) 1.0 % (0.0-2.0) Sodium Level 139 mEQ/L (135-145) Potassium Level 4.0 mEQ/L (3.4-4.9) Chloride Level 99 mEQ/L (98-107) Carbon Dioxide Level 25 mEQ/L (20-30) Anion Gap 15 (5-15) Blood Urea Nitrogen 12 mg/dL (7-23) Creatinine 0.6 mg/dL (0.7-1.2) L Estimat Glomerular Filtration Rate > 60 mL/min (>60) Glucose Level 97 mg/dL (74-106) Calcium Level 9.0 mg/dL (8.6-10.2) Current Medications Medications (Trade) Dose Ordered Sig/Elizabeth Route PRN Reason Start Time Stop Time Status Last Admin Dose Admin Acetaminophen (Tylenol) 500 mg Q4H PRN ORAL Mild Pain/Temp > 100.5 07/06/16 22:45 08/05/16 22:44 Daptomycin/Sodium Chloride (Cubicin/Sodium Chloride 50ml bag) 50 ml @ 100 mls/hr Q24H IV 07/11/16 20:00 07/18/16 19:59 07/11/16 21:25 Guaifenesin/ Dextromethorphan 10 ml 10 ml Q4H PRN ORAL For Cough 07/06/16 22:45 08/05/16 22:44 Heparin Sodium (Porcine) (Heparin 5000 units/ml) 5,000 units EVERY 8 HOURS SUBQ 07/05/16 22:00 08/04/16 21:59 07/12/16 05:49 Ernst Geller M.D. Jul 12, 2016 18:17
[2016-07-12 20:00] VITALS: BP 101/62
[2016-07-12] MEDS: DAPTOmycin 650 MG in NS 50 ML IV SCH (20:31)
[2016-07-13 00:20] VITALS: BP 102/55
[2016-07-13 04:02] VITALS: BP 118/60
[2016-07-13] MEDS: Heparin 5000 units/ml inj SUBQ SCH ×3 (06:05→20:57)
[2016-07-13 08:00] VITALS: BP 103/54
[2016-07-13 11:27] VITALS: BP 101/57
--- NOTE | 2016-07-13 13:54 | General Progress Note ---
Assessment/Plan Assessment/Plan Assessment: # Anemia 2/2 chronic disease - is mild # Leukopenia - likely med related, now improved # Narcotic overdose, heroin # Encephalopathy - more alert # Transaminitis # Sinus tachycardia Recommendations: - Monitor counts - s/p neupogen on 07/04/16 - Imaging of abdomen PENDING - Hepatitis and HIV panel are negative - Medications reviewed - Follow cards, ID recommendations - Consider psych eval - DVT ppx with heparin sq - DW Staff Sincerely, Elijah Montes MD Subjective Constitutional: Reports: no symptoms HEENT: Reports: no symptoms Cardiovascular: Reports: no symptoms Respiratory: Reports: no symptoms Gastrointestinal/Abdominal: Reports: no symptoms Genitourinary: Reports: no symptoms Neurologic/Psychiatric: Reports: no symptoms Endocrine: Reports: no symptoms Hematologic/Lymphatic: Reports: anemia Allergies: Coded Allergies: PENICILLINS (Verified Allergy, Unknown, 07/05/16) Subjective stable, no events, is alert Objective Last 24 Hour Vital Signs Date Time Temp Pulse Resp B/P Pulse Ox O2 Delivery O2 Flow Rate FiO2 07/13/16 11:27 97.9 75 18 101/57 97 Room Air 07/13/16 08:00 97.9 63 18 103/54 97 Room Air 07/13/16 04:02 98.8 72 21 118/60 96 Room Air 07/13/16 00:20 97.7 68 20 102/55 95 Room Air 07/12/16 20:00 97.0 71 17 101/62 98 Room Air 07/12/16 16:00 96.8 65 16 94/59 97 Room Air Intake and Output 07/12/16 07/13/16 19:00 07:00 Intake Total 1120 ml 330 ml Balance 1120 ml 330 ml Intake Oral 1120 ml 280 ml IV Total 50 ml # Voids 3 5 # Bowel Movements 3 Height (Feet): 5 Height (Inches): 10.00 Weight (Pounds): 190 General Appearance: no apparent distress EENT: TMs normal Neck: normal alignment Cardiovascular: normal rate Respiratory/Chest: chest wall non-tender Abdomen: soft Extremities: non-tender Edema: 1+ Leg (L), 1+ Leg (R) Neurologic: alert Skin: warm/dry Elijah Montes Jul 13, 2016 13:54
[2016-07-13 16:00] VITALS: BP 100/54
--- NOTE | 2016-07-13 17:32 | Cardiac Electrophysiology PN ---
Assessment/Plan Assessment/Plan 1. Sinus tachycardia secondary to amphetamine use. Echo normal EF. 2. Polysubstance abuse with amphetamine and opiate . 3. Leukopenia. Resolving 4. VRE Carrier. DW RN Awaiting Rehab Subjective Subjective Alert in NAD. No chest pain or SOB.No events overnight. Objective Last 24 Hour Vital Signs Date Time Temp Pulse Resp B/P Pulse Ox O2 Delivery O2 Flow Rate FiO2 07/13/16 16:00 97.2 65 18 100/54 97 Room Air 07/13/16 11:27 97.9 75 18 101/57 97 Room Air 07/13/16 08:00 97.9 63 18 103/54 97 Room Air 07/13/16 04:02 98.8 72 21 118/60 96 Room Air 07/13/16 00:20 97.7 68 20 102/55 95 Room Air 07/12/16 20:00 97.0 71 17 101/62 98 Room Air Intake and Output 07/12/16 07/13/16 19:00 07:00 Intake Total 1120 ml 330 ml Balance 1120 ml 330 ml Intake Oral 1120 ml 280 ml IV Total 50 ml # Voids 3 5 # Bowel Movements 3 Current Medications Medications (Trade) Dose Ordered Sig/Elizabeth Route PRN Reason Start Time Stop Time Status Last Admin Dose Admin Acetaminophen (Tylenol) 500 mg Q4H PRN ORAL Mild Pain/Temp > 100.5 07/06/16 22:45 08/05/16 22:44 Daptomycin/Sodium Chloride (Cubicin/Sodium Chloride 50ml bag) 50 ml @ 100 mls/hr Q24H IV 07/11/16 20:00 07/18/16 19:59 07/12/16 20:31 Guaifenesin/ Dextromethorphan 10 ml 10 ml Q4H PRN ORAL For Cough 07/06/16 22:45 08/05/16 22:44 Heparin Sodium (Porcine) (Heparin 5000 units/ml) 5,000 units EVERY 8 HOURS SUBQ 07/05/16 22:00 08/04/16 21:59 07/13/16 14:15 Objective HEAD AND NECK: Showed no JVD. LUNGS: Clear. CARDIOVASCULAR: Regular S1 and S2. No gallop or murmur. ABDOMEN: Soft. EXTREMITIES: No pitting edema. SAILAJA MCPHERSON Jul 13, 2016 17:32
--- NOTE | 2016-07-13 18:18 | Infectious Diseases Prog Note ---
Assessment/Plan Problems: (1) Sepsis Assessment & Plan: with coag negative staph , and high crystal for vancomycin, in high risk patient who is actively injecting drugs and was septic on presentation , will continue daptomycin for 4 weeks course of therapy , echo ruled out vegetations, but need to rule out endocarditis since he is a high risk patient with active IVDU, will order MARJORIE (2) Fever Assessment & Plan: improved with daptomycin , continue Tylenol prn (3) Amphetamine abuse Assessment & Plan: recommend counseling, needs screening for HIV, and Hepatitis (4) VRE (vancomycin resistant enterococcus) culture positive Assessment & Plan: keep in contact isolation Subjective Constitutional: Reports: no symptoms HEENT: Reports: no symptoms Respiratory: Reports: no symptoms Breasts: Reports: no symptoms Cardiovascular: Reports: no symptoms Gastrointestinal/Abdominal: Reports: no symptoms Genitourinary: Reports: no symptoms Neurologic: Reports: no symptoms Psychiatric: Reports: no symptoms Skin: Reports: no symptoms Endocrine: Reports: no symptoms Allergies: Coded Allergies: PENICILLINS (Verified Allergy, Unknown, 07/05/16) Subjective he was doing well, alert and comfortable, denied any fever or chills, no cough or SOB. Objective Vital Signs Last 24 Hour Vital Signs Date Time Temp Pulse Resp B/P Pulse Ox O2 Delivery O2 Flow Rate FiO2 07/13/16 16:00 97.2 65 18 100/54 97 Room Air 07/13/16 11:27 97.9 75 18 101/57 97 Room Air 07/13/16 08:00 97.9 63 18 103/54 97 Room Air 07/13/16 04:02 98.8 72 21 118/60 96 Room Air 07/13/16 00:20 97.7 68 20 102/55 95 Room Air 07/12/16 20:00 97.0 71 17 101/62 98 Room Air Height (Feet): 5 Height (Inches): 10.00 Weight (Pounds): 190 General Appearance: WD/WN, no acute distress HEENT: normocephalic, atraumatic, anicteric Respiratory/Chest: chest wall non-tender, lungs clear, normal breath sounds, no respiratory distress, no accessory muscle use Cardiovascular: normal peripheral pulses, normal rate, regular rhythm, no gallop/murmur Abdomen: normal bowel sounds, soft, non tender, no organomegaly, non distended , no mass Extremities: no cyanosis, no clubbing Skin: no rash, no lesions Current Medications Medications (Trade) Dose Ordered Sig/Elizabeth Route PRN Reason Start Time Stop Time Status Last Admin Dose Admin Acetaminophen (Tylenol) 500 mg Q4H PRN ORAL Mild Pain/Temp > 100.5 07/06/16 22:45 08/05/16 22:44 Daptomycin/Sodium Chloride (Cubicin/Sodium Chloride 50ml bag) 50 ml @ 100 mls/hr Q24H IV 07/11/16 20:00 07/18/16 19:59 07/12/16 20:31 Guaifenesin/ Dextromethorphan 10 ml 10 ml Q4H PRN ORAL For Cough 07/06/16 22:45 08/05/16 22:44 Heparin Sodium (Porcine) (Heparin 5000 units/ml) 5,000 units EVERY 8 HOURS SUBQ 07/05/16 22:00 08/04/16 21:59 07/13/16 14:15 Ernst Geller M.D. Jul 13, 2016 18:18
[2016-07-13 20:04] VITALS: BP 98/59
[2016-07-13] MEDS: DAPTOmycin 650 MG in NS 50 ML IV SCH (20:54)
--- NOTE | 2016-07-13 21:36 | Nephrology Progress Note ---
Assessment/Plan Problem List: (1) Fever (2) Amphetamine abuse (3) Opiate overdose (4) VRE (vancomycin resistant enterococcus) culture positive (5) Sepsis (6) Acute encephalopathy Assessment: 2/2 heroin and amphetamine use (7) Abnormal liver enzymes (8) Acute kidney injury (nontraumatic) Assessment: better/ (9) Bacteremia Assessment: CoNS Plan IVF. Cardio following. d/c tele. tx to [facility]. ID consult. f/u bcx. empiric abx. d/c held d/t +bcx. cont IV abx per ID rec. will need 4 more weeks. d/c planning to snf for abx. Subjective Subjective no new c/o. Objective Objective Last 24 Hour Vital Signs Date Time Temp Pulse Resp B/P Pulse Ox O2 Delivery O2 Flow Rate FiO2 07/13/16 20:04 97.7 70 18 98/59 98 Room Air 07/13/16 16:00 97.2 65 18 100/54 97 Room Air 07/13/16 11:27 97.9 75 18 101/57 97 Room Air 07/13/16 08:00 97.9 63 18 103/54 97 Room Air 07/13/16 04:02 98.8 72 21 118/60 96 Room Air 07/13/16 00:20 97.7 68 20 102/55 95 Room Air Intake and Output 07/12/16 07/13/16 19:00 07:00 Intake Total 1120 ml 330 ml Balance 1120 ml 330 ml Intake Oral 1120 ml 280 ml IV Total 50 ml # Voids 3 5 # Bowel Movements 3 Height (Feet): 5 Height (Inches): 10.00 Weight (Pounds): 190 General Appearance: no apparent distress Cardiovascular: normal rate, regular rhythm Respiratory/Chest: lungs clear Abdomen: non tender, soft ABBEY VALENTINE Jul 13, 2016 21:36
[2016-07-14] VITALS: BP 110/62
[2016-07-14 04:00] VITALS: BP 111/56
[2016-07-14] MEDS: Heparin 5000 units/ml inj SUBQ SCH ×3 (06:12→21:19)
[2016-07-14 08:00] VITALS: BP 101/55
--- NOTE | 2016-07-14 11:50 | General Progress Note ---
Assessment/Plan Problem List: (1) Amphetamine abuse ICD Codes: F15.10 - Other stimulant abuse, uncomplicated SNOMED: 39770032 (2) Opiate overdose ICD Codes: T40.601A - Poisoning by unspecified narcotics, accidental ( unintentional), initial encounter SNOMED: 431537413 Qualifiers: Qualified Codes: T40.601A - Poisoning by unspecified narcotics, accidental ( unintentional), initial encounter (3) Acute encephalopathy ICD Codes: G93.40 - Encephalopathy, unspecified SNOMED: 8730808 (4) VRE (vancomycin resistant enterococcus) culture positive ICD Codes: Z22.39 - Carrier of other specified bacterial diseases SNOMED: 780001220 Assessment/Plan Coag neg staph bacteremia, abx per ID Mild Anemia - Monitor H/H Continue DVT prophylaxis with heparin Poly substance abuse - Drug rehab rec DC plan Subjective Date patient seen: Jul 14, 2016 Constitutional: Denies: chills, diaphoresis, fever, malaise, no symptoms, other , weakness HEENT: Denies: blurred vision, double vision, ear discharge, ear pain, eye pain , mouth pain, mouth swelling, no symptoms, nose congestion, nose pain, other, tearing, throat pain, throat swelling Cardiovascular: Denies: chest pain, edema, irregular heart rate, lightheadedness, no symptoms, other, palpitations, syncope Respiratory: Denies: SOB at rest, SOB with excertion, cough, no symptoms, orthopnea, other, shortness of breath, sputum, stridor, wheezing Gastrointestinal/Abdominal: Denies: abdomen distended, abdominal pain, black stools, blood in stool, constipated, diarrhea, difficulty swallowing, nausea, no symptoms, other, poor appetite, poor fluid intake, rectal bleeding, tarry stools, vomiting Genitourinary: Denies: burning, discharge, flank pain, frequency, hematuria, incontinence, no symptoms, other, pain, urgency Neurologic/Psychiatric: Denies: anxiety, depressed, emotional problems, headache, no symptoms, numbness, other, paresthesia, pre-existing deficit, seizure, tingling, tremors, weakness Endocrine: Denies: excessive sweating, flushing, increased hunger, increased thirst, increased urine, intolerance to cold, intolerance to heat, no symptoms, other, unexplained weight gain, unexplained weight loss Hematologic/Lymphatic: Denies: anemia, easy bleeding, easy bruising, no symptoms, other Allergies: Coded Allergies: PENICILLINS (Verified Allergy, Unknown, 07/05/16) Subjective In bed, in no distress, denies discomfort, wants to go home Objective Last 24 Hour Vital Signs Date Time Temp Pulse Resp B/P Pulse Ox O2 Delivery O2 Flow Rate FiO2 07/14/16 08:00 97.2 73 18 101/55 97 Room Air 07/14/16 04:00 95.7 62 18 111/56 95 Room Air 07/14/16 00:00 97.2 58 20 110/62 97 Room Air 07/13/16 20:04 97.7 70 18 98/59 98 Room Air 07/13/16 16:00 97.2 65 18 100/54 97 Room Air Intake and Output 07/13/16 07/14/16 18:59 06:59 Intake Total 520 ml 500 ml Balance 520 ml 500 ml Intake Oral 520 ml 450 ml IV Total 50 ml # Voids 3 5 Height (Feet): 5 Height (Inches): 10.00 Weight (Pounds): 190 General Appearance: no apparent distress, alert EENT: PERRL/EOMI, normal ENT inspection Neck: non-tender, normal alignment, supple Cardiovascular: normal rate, regular rhythm, no JVD Respiratory/Chest: lungs clear, normal breath sounds, no respiratory distress Abdomen: non tender, soft, no organomegaly, no mass Pelvis: normal external exam Extremities: normal range of motion, non-tender, normal inspection, no calf tenderness Neurologic: alert, oriented x 3, responsive, normal mood/affect Skin: normal pigmentation, warm/dry Ca Riggs N.P. Jul 14, 2016 11:50
[2016-07-14 12:00] VITALS: BP 106/57
[2016-07-14 16:00] VITALS: BP 112/63
--- NOTE | 2016-07-14 16:35 | Cardiac Electrophysiology PN ---
Assessment/Plan Assessment/Plan 1. Sinus tachycardia secondary to amphetamine use. Echo normal EF. 2. Polysubstance abuse with amphetamine and opiate . 3. Leukopenia. Resolving 4. VRE Carrier. ROMULO RN Subjective Subjective Alert in NAD.Comfortable.No events overnight. Objective Last 24 Hour Vital Signs Date Time Temp Pulse Resp B/P Pulse Ox O2 Delivery O2 Flow Rate FiO2 07/14/16 12:00 96.4 78 18 106/57 99 Room Air 07/14/16 08:00 97.2 73 18 101/55 97 Room Air 07/14/16 04:00 95.7 62 18 111/56 95 Room Air 07/14/16 00:00 97.2 58 20 110/62 97 Room Air 07/13/16 20:04 97.7 70 18 98/59 98 Room Air Intake and Output 07/13/16 07/14/16 19:00 07:00 Intake Total 520 ml 500 ml Balance 520 ml 500 ml Intake Oral 520 ml 450 ml IV Total 50 ml # Voids 3 5 Objective HEAD AND NECK: Showed no JVD. LUNGS: Clear. CARDIOVASCULAR: Regular S1 and S2. No gallop or murmur. ABDOMEN: Soft. EXTREMITIES: No pitting edema. SAILAJA MCPHERSON Jul 14, 2016 16:35
--- NOTE | 2016-07-14 17:29 | General Progress Note ---
Assessment/Plan Assessment/Plan Assessment: # Anemia 2/2 chronic disease - is mild # Leukopenia - likely med related, now improved # Narcotic overdose, heroin # Encephalopathy - more alert # Transaminitis # Sinus tachycardia Recommendations: - Monitor counts - s/p neupogen on 07/04/16 - Imaging of abdomen PENDING - Medications reviewed - Follow cards, ID recommendations - Consider psych eval - Drug rehab as outpatient - DVT ppx with heparin sq - DW Staff Sincerely, Elijah Montes MD Subjective Constitutional: Reports: no symptoms HEENT: Reports: no symptoms Cardiovascular: Reports: no symptoms Respiratory: Reports: no symptoms Gastrointestinal/Abdominal: Reports: no symptoms Genitourinary: Reports: no symptoms Neurologic/Psychiatric: Reports: no symptoms Endocrine: Reports: no symptoms Hematologic/Lymphatic: Reports: anemia Allergies: Coded Allergies: PENICILLINS (Verified Allergy, Unknown, 07/05/16) Subjective stable, no events, is alert Objective Last 24 Hour Vital Signs Date Time Temp Pulse Resp B/P Pulse Ox O2 Delivery O2 Flow Rate FiO2 07/14/16 12:00 96.4 78 18 106/57 99 Room Air 07/14/16 08:00 97.2 73 18 101/55 97 Room Air 07/14/16 04:00 95.7 62 18 111/56 95 Room Air 07/14/16 00:00 97.2 58 20 110/62 97 Room Air 07/13/16 20:04 97.7 70 18 98/59 98 Room Air Intake and Output 07/13/16 07/14/16 19:00 07:00 Intake Total 520 ml 500 ml Balance 520 ml 500 ml Intake Oral 520 ml 450 ml IV Total 50 ml # Voids 3 5 Height (Feet): 5 Height (Inches): 10.00 Weight (Pounds): 190 General Appearance: no apparent distress EENT: TMs normal Neck: normal inspection Cardiovascular: regular rhythm Respiratory/Chest: lungs clear Abdomen: non tender Genitourinary/Rectal: heme negative stool Extremities: non-tender Edema: 1+ Leg (L), 1+ Leg (R) Edema: mild edema Neurologic: alert Skin: warm/dry Elijah Montes Jul 14, 2016 17:29
--- NOTE | 2016-07-14 18:13 | Infectious Diseases Prog Note ---
Assessment/Plan Problems: (1) Sepsis Assessment & Plan: with coag negative staph , and high crystal for vancomycin, in high risk patient who is actively injecting drugs and was septic on presentation , will continue daptomycin for 4 weeks course of therapy , echo ruled out vegetations, but need to rule out endocarditis since he is a high risk patient with active IVDU, will order MARJORIE (2) Fever Assessment & Plan: improved with daptomycin , continue Tylenol prn (3) Amphetamine abuse Assessment & Plan: recommend counseling, needs screening for HIV, and Hepatitis (4) VRE (vancomycin resistant enterococcus) culture positive Assessment & Plan: keep in contact isolation Subjective Constitutional: Reports: no symptoms HEENT: Reports: no symptoms Respiratory: Reports: no symptoms Breasts: Reports: no symptoms Cardiovascular: Reports: no symptoms Gastrointestinal/Abdominal: Reports: no symptoms Genitourinary: Reports: no symptoms Neurologic: Reports: no symptoms Psychiatric: Reports: no symptoms Skin: Reports: no symptoms Endocrine: Reports: no symptoms Allergies: Coded Allergies: PENICILLINS (Verified Allergy, Unknown, 07/05/16) Subjective he was doing well, alert and comfortable, denied any fever or chills, no cough or SOB. Objective Vital Signs Last 24 Hour Vital Signs Date Time Temp Pulse Resp B/P Pulse Ox O2 Delivery O2 Flow Rate FiO2 07/14/16 12:00 96.4 78 18 106/57 99 Room Air 07/14/16 08:00 97.2 73 18 101/55 97 Room Air 07/14/16 04:00 95.7 62 18 111/56 95 Room Air 07/14/16 00:00 97.2 58 20 110/62 97 Room Air 07/13/16 20:04 97.7 70 18 98/59 98 Room Air Height (Feet): 5 Height (Inches): 10.00 Weight (Pounds): 190 General Appearance: WD/WN, no acute distress HEENT: normocephalic, atraumatic, anicteric, mucous membranes moist Respiratory/Chest: chest wall non-tender, lungs clear, normal breath sounds, no respiratory distress, no accessory muscle use Cardiovascular: normal peripheral pulses, normal rate, regular rhythm, no gallop/murmur Abdomen: normal bowel sounds, soft, non tender, no organomegaly, non distended , no mass Extremities: no cyanosis, no clubbing Skin: no rash, no lesions, no ulcers Current Medications Medications (Trade) Dose Ordered Sig/Elizabeth Route PRN Reason Start Time Stop Time Status Last Admin Dose Admin Acetaminophen (Tylenol) 500 mg Q4H PRN ORAL Mild Pain/Temp > 100.5 07/06/16 22:45 08/05/16 22:44 Daptomycin/Sodium Chloride (Cubicin/Sodium Chloride 50ml bag) 50 ml @ 100 mls/hr Q24H IV 07/11/16 20:00 07/18/16 19:59 07/13/16 20:54 Guaifenesin/ Dextromethorphan 10 ml 10 ml Q4H PRN ORAL For Cough 07/06/16 22:45 08/05/16 22:44 Heparin Sodium (Porcine) (Heparin 5000 units/ml) 5,000 units EVERY 8 HOURS SUBQ 07/05/16 22:00 08/04/16 21:59 07/14/16 13:35 Ernst Geller M.D. Jul 14, 2016 18:13
[2016-07-14 19:00] VITALS: BP 110/63
[2016-07-14] MEDS: DAPTOmycin 650 MG in NS 50 ML IV SCH (21:17)
[2016-07-15] VITALS: BP 97/65
[2016-07-15 04:00] VITALS: BP 98/52
[2016-07-15] MEDS: Heparin 5000 units/ml inj SUBQ SCH ×3 (06:06→22:03)
[2016-07-15 06:53] LABS: BASOPHILS % (AUTO) 1.6 % (0.0-2.0); EOSINOPHILS % (AUTO) 2.2 % (0.0-3.0); LYMPHOCYTES % (AUTO) 48.5 % (20.0-45.0); MEAN CORPUSCULAR HEMOGLOBIN 29.7 PG (27.0-31.0); MEAN CORPUSCULAR VOLUME 87 FL (80-99); MEAN PLATELET VOLUME 5.6 FL (6.5-10.1); MONOCYTES % (AUTO) 5.2 % (1.0-10.0); NEUTROPHILS % (AUTO) 42.4 % (45.0-75.0); PLATELET COUNT 548 K/UL (150-450); RED BLOOD COUNT 4.76 M/UL (4.70-6.10); RED CELL DISTRIBUTION WIDTH 11.6 % (11.6-14.8); WHITE BLOOD COUNT 6.1 K/UL (4.8-10.8)
[2016-07-15 07:05] LABS: ANION GAP 15 (5-15); CARBON DIOXIDE 25 mEQ/L (20-30); CHLORIDE 99 mEQ/L (98-107); CREATININE 0.7 mg/dL (0.7-1.2); GLOMERULAR FILTRATION RATE > 60 mL/min (>60); HEMOLYSIS 7; POTASSIUM 4.4 mEQ/L (3.4-4.9); SODIUM 139 mEQ/L (135-145)
[2016-07-15 08:00] VITALS: BP 107/57
--- NOTE | 2016-07-15 08:51 | General Progress Note ---
Assessment/Plan Assessment/Plan Assessment: # Anemia 2/2 chronic disease - is mild # Leukopenia - likely med related, has improved # Narcotic overdose, heroin # Encephalopathy - more alert # Transaminitis # Sinus tachycardia Recommendations: - Monitor counts - s/p neupogen on 07/04/16 - Imaging of abdomen PENDING - Medications reviewed - Follow cards, ID recommendations - Consider psych eval - Drug rehab as outpatient - DVT ppx with heparin sq - DW Staff Sincerely, Elijah Montes MD Subjective Constitutional: Reports: no symptoms HEENT: Reports: no symptoms Cardiovascular: Reports: no symptoms Respiratory: Reports: no symptoms Gastrointestinal/Abdominal: Reports: poor appetite Genitourinary: Reports: no symptoms Neurologic/Psychiatric: Reports: no symptoms Endocrine: Reports: no symptoms Hematologic/Lymphatic: Reports: anemia Allergies: Coded Allergies: PENICILLINS (Verified Allergy, Unknown, 07/05/16) Subjective stable, no events, is alert and oriented Objective Last 24 Hour Vital Signs Date Time Temp Pulse Resp B/P Pulse Ox O2 Delivery O2 Flow Rate FiO2 07/15/16 08:00 98.1 65 18 107/57 98 Room Air 07/15/16 04:00 98.3 57 20 98/52 95 Room Air 07/15/16 00:00 96.7 68 18 97/65 97 Room Air 07/14/16 19:00 98.2 76 20 110/63 97 Room Air 07/14/16 16:00 99.1 66 20 112/63 97 Room Air 07/14/16 12:00 96.4 78 18 106/57 99 Room Air Intake and Output 07/14/16 07/15/16 19:00 07:00 Intake Total 510 ml 480 ml Balance 510 ml 480 ml Intake Oral 510 ml 480 ml # Voids 3 6 # Bowel Movements 2 Laboratory Tests 07/15/16 06:20: White Blood Count 6.1, Red Blood Count 4.76, Hemoglobin 14.1L, Hematocrit 41.6L , Mean Corpuscular Volume 87, Mean Corpuscular Hemoglobin 29.7, Mean Corpuscular Hemoglobin Concent 34.0, Red Cell Distribution Width 11.6, Platelet Count 548H, Mean Platelet Volume 5.6L, Neutrophils (%) (Auto) 42.4L, Lymphocytes (%) (Auto) 48.5H, Monocytes (%) (Auto) 5.2, Eosinophils (%) (Auto) 2.2, Basophils (%) (Auto) 1.6, Sodium Level 139, Potassium Level 4.4, Chloride Level 99, Carbon Dioxide Level 25, Anion Gap 15, Blood Urea Nitrogen 13, Creatinine 0.7, Estimat Glomerular Filtration Rate > 60, Glucose Level 103, Calcium Level 9.0 Height (Feet): 5 Height (Inches): 10.00 Weight (Pounds): 190 General Appearance: no apparent distress EENT: TMs normal Neck: supple Cardiovascular: regular rhythm Respiratory/Chest: normal breath sounds Abdomen: soft Extremities: normal range of motion Edema: 1+ Leg (L), 1+ Leg (R) Edema: mild edema Neurologic: oriented x 3 Skin: warm/dry Elijah Montes Jul 15, 2016 08:51
[2016-07-15 12:00] VITALS: BP 102/59
[2016-07-15] MEDS ORDERED: Heparin 2000 units/Ns 1000ml INJ SCH (13:30)
[2016-07-15] MEDS ORDERED: Lidocaine 1% Plain 30 ml INJ SCH (13:30)
[2016-07-15] MEDS ORDERED: Sodium Bicarbonate 8.4% 50ml Inj IV SCH (13:30)
[2016-07-15 16:00] VITALS: BP 111/60
--- NOTE | 2016-07-15 17:45 | Infectious Diseases Prog Note ---
Assessment/Plan Problems: (1) Sepsis Assessment & Plan: with coag negative staph , and high crystal for vancomycin, in high risk patient who is actively injecting drugs and was septic on presentation , will continue daptomycin for 4 weeks course of therapy , echo ruled out vegetations, but need to rule out endocarditis since he is a high risk patient with active IVDU, will order MARJORIE (2) Fever Assessment & Plan: improved with daptomycin , continue Tylenol prn (3) Amphetamine abuse Assessment & Plan: recommend counseling, needs screening for HIV, and Hepatitis (4) VRE (vancomycin resistant enterococcus) culture positive Assessment & Plan: keep in contact isolation Subjective Constitutional: Reports: no symptoms HEENT: Reports: no symptoms Respiratory: Reports: no symptoms Breasts: Reports: no symptoms Cardiovascular: Reports: no symptoms Gastrointestinal/Abdominal: Reports: no symptoms Genitourinary: Reports: no symptoms Neurologic: Reports: no symptoms Psychiatric: Reports: no symptoms Skin: Reports: no symptoms Endocrine: Reports: no symptoms Hematologic: Reports: no symptoms Allergies: Coded Allergies: PENICILLINS (Verified Allergy, Unknown, 07/05/16) Subjective he was doing well, alert and comfortable, denied any fever or chills, no cough or SOB. Objective Vital Signs Last 24 Hour Vital Signs Date Time Temp Pulse Resp B/P Pulse Ox O2 Delivery O2 Flow Rate FiO2 07/15/16 16:00 99.1 66 18 111/60 98 Room Air 07/15/16 12:00 97.7 75 18 102/59 100 Room Air 07/15/16 08:00 98.1 65 18 107/57 98 Room Air 07/15/16 04:00 98.3 57 20 98/52 95 Room Air 07/15/16 00:00 96.7 68 18 97/65 97 Room Air 07/14/16 19:00 98.2 76 20 110/63 97 Room Air Height (Feet): 5 Height (Inches): 10.00 Weight (Pounds): 190 General Appearance: WD/WN, no acute distress HEENT: normocephalic, atraumatic, anicteric, mucous membranes moist Respiratory/Chest: chest wall non-tender, lungs clear, normal breath sounds, no respiratory distress, no accessory muscle use Cardiovascular: normal peripheral pulses, normal rate, regular rhythm, no gallop/murmur Abdomen: normal bowel sounds, soft, non tender, no organomegaly, non distended , no mass, no scars Extremities: no cyanosis, no clubbing Skin: no rash, no lesions, no ulcers Microbiology Date/Time Source Procedure Growth Status 07/13/16 21:15 Blood Blood Culture - Preliminary NO GROWTH AFTER 24 HOURS Resulted 07/13/16 21:05 Blood Blood Culture - Preliminary NO GROWTH AFTER 24 HOURS Resulted Laboratory Tests Test 07/15/16 06:20 White Blood Count 6.1 K/UL (4.8-10.8) Red Blood Count 4.76 M/UL (4.70-6.10) Hemoglobin 14.1 G/DL (14.2-18.0) L Hematocrit 41.6 % (42.0-52.0) L Mean Corpuscular Volume 87 FL (80-99) Mean Corpuscular Hemoglobin 29.7 PG (27.0-31.0) Mean Corpuscular Hemoglobin Concent 34.0 G/DL (32.0-36.0) Red Cell Distribution Width 11.6 % (11.6-14.8) Platelet Count 548 K/UL (150-450) H Mean Platelet Volume 5.6 FL (6.5-10.1) L Neutrophils (%) (Auto) 42.4 % (45.0-75.0) L Lymphocytes (%) (Auto) 48.5 % (20.0-45.0) H Monocytes (%) (Auto) 5.2 % (1.0-10.0) Eosinophils (%) (Auto) 2.2 % (0.0-3.0) Basophils (%) (Auto) 1.6 % (0.0-2.0) Sodium Level 139 mEQ/L (135-145) Potassium Level 4.4 mEQ/L (3.4-4.9) Chloride Level 99 mEQ/L (98-107) Carbon Dioxide Level 25 mEQ/L (20-30) Anion Gap 15 (5-15) Blood Urea Nitrogen 13 mg/dL (7-23) Creatinine 0.7 mg/dL (0.7-1.2) Estimat Glomerular Filtration Rate > 60 mL/min (>60) Glucose Level 103 mg/dL (74-106) Calcium Level 9.0 mg/dL (8.6-10.2) Current Medications Medications (Trade) Dose Ordered Sig/Elizabeth Route PRN Reason Start Time Stop Time Status Last Admin Dose Admin Acetaminophen (Tylenol) 500 mg Q4H PRN ORAL Mild Pain/Temp > 100.5 07/06/16 22:45 08/05/16 22:44 Daptomycin/Sodium Chloride (Cubicin/Sodium Chloride 50ml bag) 50 ml @ 100 mls/hr Q24H IV 07/11/16 20:00 07/18/16 19:59 07/14/16 21:17 Guaifenesin/ Dextromethorphan 10 ml 10 ml Q4H PRN ORAL For Cough 07/06/16 22:45 08/05/16 22:44 Heparin Sodium (Porcine) (Heparin 5000 units/ml) 5,000 units EVERY 8 HOURS SUBQ 07/05/16 22:00 08/04/16 21:59 07/15/16 13:59 Ernst Geller M.D. Jul 15, 2016 17:44
--- NOTE | 2016-07-15 18:46 | Cardiac Electrophysiology PN ---
Assessment/Plan Assessment/Plan 1. Sinus tachycardia secondary to amphetamine use. Echo normal EF. 2. Polysubstance abuse with amphetamine and opiate . 3. Leukopenia. 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 ROMULO RN Subjective Subjective Alert in NAD.Comfortable.No events overnight.Awaiting placement Objective Last 24 Hour Vital Signs Date Time Temp Pulse Resp B/P Pulse Ox O2 Delivery O2 Flow Rate FiO2 07/15/16 16:00 99.1 66 18 111/60 98 Room Air 07/15/16 12:00 97.7 75 18 102/59 100 Room Air 07/15/16 08:00 98.1 65 18 107/57 98 Room Air 07/15/16 04:00 98.3 57 20 98/52 95 Room Air 07/15/16 00:00 96.7 68 18 97/65 97 Room Air 07/14/16 19:00 98.2 76 20 110/63 97 Room Air Intake and Output 07/14/16 07/15/16 19:00 07:00 Intake Total 510 ml 480 ml Balance 510 ml 480 ml Intake Oral 510 ml 480 ml # Voids 3 6 # Bowel Movements 2 Laboratory Tests Test 07/15/16 06:20 White Blood Count 6.1 K/UL (4.8-10.8) Red Blood Count 4.76 M/UL (4.70-6.10) Hemoglobin 14.1 G/DL (14.2-18.0) L Hematocrit 41.6 % (42.0-52.0) L Mean Corpuscular Volume 87 FL (80-99) Mean Corpuscular Hemoglobin 29.7 PG (27.0-31.0) Mean Corpuscular Hemoglobin Concent 34.0 G/DL (32.0-36.0) Red Cell Distribution Width 11.6 % (11.6-14.8) Platelet Count 548 K/UL (150-450) H Mean Platelet Volume 5.6 FL (6.5-10.1) L Neutrophils (%) (Auto) 42.4 % (45.0-75.0) L Lymphocytes (%) (Auto) 48.5 % (20.0-45.0) H Monocytes (%) (Auto) 5.2 % (1.0-10.0) Eosinophils (%) (Auto) 2.2 % (0.0-3.0) Basophils (%) (Auto) 1.6 % (0.0-2.0) Sodium Level 139 mEQ/L (135-145) Potassium Level 4.4 mEQ/L (3.4-4.9) Chloride Level 99 mEQ/L (98-107) Carbon Dioxide Level 25 mEQ/L (20-30) Anion Gap 15 (5-15) Blood Urea Nitrogen 13 mg/dL (7-23) Creatinine 0.7 mg/dL (0.7-1.2) Estimat Glomerular Filtration Rate > 60 mL/min (>60) Glucose Level 103 mg/dL (74-106) Calcium Level 9.0 mg/dL (8.6-10.2) Microbiology Date/Time Source Procedure Growth Status 07/13/16 21:15 Blood Blood Culture - Preliminary NO GROWTH AFTER 24 HOURS Resulted 07/13/16 21:05 Blood Blood Culture - Preliminary NO GROWTH AFTER 24 HOURS Resulted Objective HEAD AND NECK: Showed no JVD. LUNGS: Clear. CARDIOVASCULAR: Regular S1 and S2. No gallop or murmur. ABDOMEN: Soft. EXTREMITIES: No pitting edema. SAILAJA MCPHERSON Jul 15, 2016 18:46
[2016-07-15 19:00] VITALS: BP 119/65
--- NOTE | 2016-07-15 21:14 | General Progress Note ---
Assessment/Plan Problem List: (1) Amphetamine abuse ICD Codes: F15.10 - Other stimulant abuse, uncomplicated SNOMED: 21227375 (2) Opiate overdose ICD Codes: T40.601A - Poisoning by unspecified narcotics, accidental ( unintentional), initial encounter SNOMED: 172306213 Qualifiers: Qualified Codes: T40.601A - Poisoning by unspecified narcotics, accidental ( unintentional), initial encounter (3) Acute encephalopathy ICD Codes: G93.40 - Encephalopathy, unspecified SNOMED: 9861692 (4) VRE (vancomycin resistant enterococcus) culture positive ICD Codes: Z22.39 - Carrier of other specified bacterial diseases SNOMED: 792446256 Status: doing well, stable, progressing Assessment/Plan Coag neg staph bacteremia, abx per ID, will f/u with ID rec Mild Anemia - Monitor H/H Continue DVT prophylaxis with heparin Encephalopathy - resolved Poly substance abuse - Drug rehab rec DC plan Subjective Constitutional: Denies: chills, diaphoresis, fever, malaise, no symptoms, other , weakness HEENT: Denies: blurred vision, double vision, ear discharge, ear pain, eye pain , mouth pain, mouth swelling, no symptoms, nose congestion, nose pain, other, tearing, throat pain, throat swelling Cardiovascular: Denies: chest pain, edema, irregular heart rate, lightheadedness, no symptoms, other, palpitations, syncope Respiratory: Denies: SOB at rest, SOB with excertion, cough, no symptoms, orthopnea, other, shortness of breath, sputum, stridor, wheezing Gastrointestinal/Abdominal: Denies: abdomen distended, abdominal pain, black stools, blood in stool, constipated, diarrhea, difficulty swallowing, nausea, no symptoms, other, poor appetite, poor fluid intake, rectal bleeding, tarry stools, vomiting Genitourinary: Denies: burning, discharge, flank pain, frequency, hematuria, incontinence, no symptoms, other, pain, urgency Neurologic/Psychiatric: Denies: anxiety, depressed, emotional problems, headache, no symptoms, numbness, other, paresthesia, pre-existing deficit, seizure, tingling, tremors, weakness Endocrine: Denies: excessive sweating, flushing, increased hunger, increased thirst, increased urine, intolerance to cold, intolerance to heat, no symptoms, other, unexplained weight gain, unexplained weight loss Hematologic/Lymphatic: Denies: anemia, easy bleeding, easy bruising, no symptoms, other Allergies: Coded Allergies: PENICILLINS (Verified Allergy, Unknown, 07/05/16) Subjective In bed, in no distress, denies discomfort Objective Last 24 Hour Vital Signs Date Time Temp Pulse Resp B/P Pulse Ox O2 Delivery O2 Flow Rate FiO2 07/15/16 19:00 98.2 85 20 119/65 97 Room Air 07/15/16 16:00 99.1 66 18 111/60 98 Room Air 07/15/16 12:00 97.7 75 18 102/59 100 Room Air 07/15/16 08:00 98.1 65 18 107/57 98 Room Air 07/15/16 04:00 98.3 57 20 98/52 95 Room Air 07/15/16 00:00 96.7 68 18 97/65 97 Room Air Intake and Output 07/14/16 07/15/16 19:00 07:00 Intake Total 510 ml 480 ml Balance 510 ml 480 ml Intake Oral 510 ml 480 ml # Voids 3 6 # Bowel Movements 2 Laboratory Tests 07/15/16 06:20: White Blood Count 6.1, Red Blood Count 4.76, Hemoglobin 14.1L, Hematocrit 41.6L , Mean Corpuscular Volume 87, Mean Corpuscular Hemoglobin 29.7, Mean Corpuscular Hemoglobin Concent 34.0, Red Cell Distribution Width 11.6, Platelet Count 548H, Mean Platelet Volume 5.6L, Neutrophils (%) (Auto) 42.4L, Lymphocytes (%) (Auto) 48.5H, Monocytes (%) (Auto) 5.2, Eosinophils (%) (Auto) 2.2, Basophils (%) (Auto) 1.6, Sodium Level 139, Potassium Level 4.4, Chloride Level 99, Carbon Dioxide Level 25, Anion Gap 15, Blood Urea Nitrogen 13, Creatinine 0.7, Estimat Glomerular Filtration Rate > 60, Glucose Level 103, Calcium Level 9.0 Height (Feet): 5 Height (Inches): 10.00 Weight (Pounds): 190 General Appearance: no apparent distress, alert EENT: normal ENT inspection, TMs normal, pharynx normal Neck: non-tender, normal alignment, supple, normal inspection Cardiovascular: normal rate, regular rhythm, no JVD Respiratory/Chest: lungs clear, normal breath sounds, no respiratory distress Abdomen: non tender, soft, no organomegaly Pelvis: normal external exam Neurologic: alert, oriented x 3, responsive, normal mood/affect Skin: normal pigmentation, warm/dry Ca Riggs N.P. Jul 15, 2016 21:14
[2016-07-15] MEDS: DAPTOmycin 650 MG in NS 50 ML IV SCH (21:25)
[2016-07-16] VITALS: BP 117/62
[2016-07-16 04:00] VITALS: BP 114/64
[2016-07-16] MEDS: Heparin 5000 units/ml inj SUBQ SCH ×3 (05:54→21:40)
[2016-07-16 08:00] VITALS: BP 102/58
[2016-07-16 08:10] LABS: BASOPHILS % (AUTO) 2.2 % (0.0-2.0); EOSINOPHILS % (AUTO) 3.8 % (0.0-3.0); MEAN CORPUSCULAR VOLUME 88 FL (80-99); MEAN PLATELET VOLUME 5.7 FL (6.5-10.1); MONOCYTES % (AUTO) 5.8 % (1.0-10.0); NEUTROPHILS % (AUTO) 38.2 % (45.0-75.0); PLATELET COUNT 472 K/UL (150-450); RED BLOOD COUNT 4.87 M/UL (4.70-6.10); RED CELL DISTRIBUTION WIDTH 11.8 % (11.6-14.8); WHITE BLOOD COUNT 5.8 K/UL (4.8-10.8)
[2016-07-16 08:15] LABS: ANION GAP 15 (5-15); CALCIUM 9.3 mg/dL (8.6-10.2); CARBON DIOXIDE 25 mEQ/L (20-30); CHLORIDE 98 mEQ/L (98-107); CREATININE 0.8 mg/dL (0.7-1.2); GLOMERULAR FILTRATION RATE > 60 mL/min (>60); HEMOLYSIS 6; POTASSIUM 4.4 mEQ/L (3.4-4.9); SODIUM 138 mEQ/L (135-145)
[2016-07-16 12:00] VITALS: BP 106/58
--- NOTE | 2016-07-16 14:33 | General Progress Note ---
Assessment/Plan Assessment/Plan Assessment: # Anemia 2/2 chronic disease - is mild # Leukopenia - likely med related, improved # Narcotic overdose, heroin # Encephalopathy - more alert # Transaminitis # Sinus tachycardia Recommendations: - Monitor counts - s/p neupogen on 07/04/16 - Imaging of abdomen PENDING - Medications reviewed - Follow cards, ID recs - Consider psych eval - Drug rehab as outpatient - DVT ppx with heparin sq - DW Staff Sincerely, Elijah Montes MD Subjective Constitutional: Reports: no symptoms HEENT: Reports: no symptoms Cardiovascular: Reports: no symptoms Respiratory: Reports: no symptoms Gastrointestinal/Abdominal: Reports: poor appetite Genitourinary: Reports: no symptoms Neurologic/Psychiatric: Reports: no symptoms Endocrine: Reports: no symptoms Hematologic/Lymphatic: Reports: anemia Allergies: Coded Allergies: PENICILLINS (Verified Allergy, Unknown, 07/05/16) Subjective stable, no events, is alert Objective Last 24 Hour Vital Signs Date Time Temp Pulse Resp B/P Pulse Ox O2 Delivery O2 Flow Rate FiO2 07/16/16 12:00 97.5 75 18 106/58 95 Room Air 07/16/16 08:00 98.2 70 18 102/58 95 Room Air 07/16/16 04:00 98.4 66 18 114/64 98 Room Air 07/16/16 00:00 98.2 65 17 117/62 97 Room Air 07/15/16 19:00 98.2 85 20 119/65 97 Room Air 07/15/16 16:00 99.1 66 18 111/60 98 Room Air Intake and Output 07/15/16 07/16/16 19:00 07:00 Intake Total 580 ml 650 ml Balance 580 ml 650 ml Intake Oral 580 ml 600 ml IV Total 50 ml # Voids 3 5 # Bowel Movements 2 Laboratory Tests 07/16/16 07:10: White Blood Count 5.8, Red Blood Count 4.87, Hemoglobin 14.6, Hematocrit 43.0, Mean Corpuscular Volume 88, Mean Corpuscular Hemoglobin 30.0, Mean Corpuscular Hemoglobin Concent 34.0, Red Cell Distribution Width 11.8, Platelet Count 472H, Mean Platelet Volume 5.7L, Neutrophils (%) (Auto) 38.2L, Lymphocytes (%) (Auto) 50.0H, Monocytes (%) (Auto) 5.8, Eosinophils (%) (Auto) 3.8H, Basophils (%) ( Auto) 2.2H, Sodium Level 138, Potassium Level 4.4, Chloride Level 98, Carbon Dioxide Level 25, Anion Gap 15, Blood Urea Nitrogen 12, Creatinine 0.8, Estimat Glomerular Filtration Rate > 60, Glucose Level 90, Calcium Level 9.3 Height (Feet): 5 Height (Inches): 10.00 Weight (Pounds): 190 General Appearance: no apparent distress EENT: TMs normal Neck: supple Cardiovascular: regular rhythm Respiratory/Chest: normal breath sounds Abdomen: soft Genitourinary/Rectal: normal rectal exam Extremities: non-tender Edema: 1+ Leg (L), 1+ Leg (R) Edema: mild edema Neurologic: alert Skin: warm/dry Elijah Montes Jul 16, 2016 14:33
[2016-07-16 16:38] VITALS: BP 115/60
--- NOTE | 2016-07-16 17:35 | Cardiac Electrophysiology PN ---
Assessment/Plan Assessment/Plan 1. Sinus tachycardia secondary to amphetamine use. Echo normal EF. 2. Polysubstance abuse with amphetamine and opiate . 3. Leukopenia. 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 5.Coag negative staph sepsis, and high crystal for vancomycin, in high risk patient who is actively injecting drugs and was septic on presentation, will continue daptomycin for 4 weeks course of therapy.2D echo ruled out vegetations.MARJORIE ordered to rule out endocarditis DW RN Subjective Subjective Comfortable.No events overnight.Awaiting placement.Needs 9 more days of antibiotics in house. Objective Last 24 Hour Vital Signs Date Time Temp Pulse Resp B/P Pulse Ox O2 Delivery O2 Flow Rate FiO2 07/16/16 16:38 98.1 64 19 115/60 100 Room Air 07/16/16 12:00 97.5 75 18 106/58 95 Room Air 07/16/16 08:00 98.2 70 18 102/58 95 Room Air 07/16/16 04:00 98.4 66 18 114/64 98 Room Air 07/16/16 00:00 98.2 65 17 117/62 97 Room Air 07/15/16 19:00 98.2 85 20 119/65 97 Room Air Intake and Output 07/15/16 07/16/16 19:00 07:00 Intake Total 580 ml 650 ml Balance 580 ml 650 ml Intake Oral 580 ml 600 ml IV Total 50 ml # Voids 3 5 # Bowel Movements 2 Laboratory Tests Test 07/16/16 07:10 White Blood Count 5.8 K/UL (4.8-10.8) Red Blood Count 4.87 M/UL (4.70-6.10) Hemoglobin 14.6 G/DL (14.2-18.0) Hematocrit 43.0 % (42.0-52.0) Mean Corpuscular Volume 88 FL (80-99) Mean Corpuscular Hemoglobin 30.0 PG (27.0-31.0) Mean Corpuscular Hemoglobin Concent 34.0 G/DL (32.0-36.0) Red Cell Distribution Width 11.8 % (11.6-14.8) Platelet Count 472 K/UL (150-450) H Mean Platelet Volume 5.7 FL (6.5-10.1) L Neutrophils (%) (Auto) 38.2 % (45.0-75.0) L Lymphocytes (%) (Auto) 50.0 % (20.0-45.0) H Monocytes (%) (Auto) 5.8 % (1.0-10.0) Eosinophils (%) (Auto) 3.8 % (0.0-3.0) H Basophils (%) (Auto) 2.2 % (0.0-2.0) H Sodium Level 138 mEQ/L (135-145) Potassium Level 4.4 mEQ/L (3.4-4.9) Chloride Level 98 mEQ/L (98-107) Carbon Dioxide Level 25 mEQ/L (20-30) Anion Gap 15 (5-15) Blood Urea Nitrogen 12 mg/dL (7-23) Creatinine 0.8 mg/dL (0.7-1.2) Estimat Glomerular Filtration Rate > 60 mL/min (>60) Glucose Level 90 mg/dL (74-106) Calcium Level 9.3 mg/dL (8.6-10.2) Microbiology Date/Time Source Procedure Growth Status 07/13/16 21:15 Blood Blood Culture - Preliminary NO GROWTH AFTER 48 HOURS Resulted 07/13/16 21:05 Blood Blood Culture - Preliminary NO GROWTH AFTER 48 HOURS Resulted Objective HEAD AND NECK: Showed no JVD. LUNGS: Clear. CARDIOVASCULAR: Regular S1 and S2. No gallop or murmur. ABDOMEN: Soft. EXTREMITIES: No pitting edema. SAILAJA MCPHERSON Jul 16, 2016 17:35
--- NOTE | 2016-07-16 17:55 | Infectious Diseases Prog Note ---
Assessment/Plan Problems: (1) Sepsis Assessment & Plan: with coag negative staph , and high crystal for vancomycin, in high risk patient who is actively injecting drugs and was septic on presentation , will continue daptomycin for 4 weeks course of therapy , echo ruled out vegetations, but need to rule out endocarditis since he is a high risk patient with active IVDU, will order MARJORIE (2) Amphetamine abuse Assessment & Plan: recommend counseling, needs screening for HIV, and Hepatitis (3) VRE (vancomycin resistant enterococcus) culture positive Assessment & Plan: keep in contact isolation Subjective Constitutional: Reports: no symptoms HEENT: Reports: no symptoms Respiratory: Reports: no symptoms Breasts: Reports: no symptoms Cardiovascular: Reports: no symptoms Gastrointestinal/Abdominal: Reports: no symptoms Genitourinary: Reports: no symptoms Neurologic: Reports: no symptoms Psychiatric: Reports: no symptoms Skin: Reports: no symptoms Endocrine: Reports: no symptoms Hematologic: Reports: no symptoms Allergies: Coded Allergies: PENICILLINS (Verified Allergy, Unknown, 07/05/16) Subjective he was doing well, alert and comfortable, denied any fever or chills, no cough or SOB. Objective Vital Signs Last 24 Hour Vital Signs Date Time Temp Pulse Resp B/P Pulse Ox O2 Delivery O2 Flow Rate FiO2 07/16/16 16:38 98.1 64 19 115/60 100 Room Air 07/16/16 12:00 97.5 75 18 106/58 95 Room Air 07/16/16 08:00 98.2 70 18 102/58 95 Room Air 07/16/16 04:00 98.4 66 18 114/64 98 Room Air 07/16/16 00:00 98.2 65 17 117/62 97 Room Air 07/15/16 19:00 98.2 85 20 119/65 97 Room Air Height (Feet): 5 Height (Inches): 10.00 Weight (Pounds): 190 General Appearance: WD/WN, no acute distress HEENT: normocephalic, atraumatic, anicteric, mucous membranes moist Respiratory/Chest: chest wall non-tender, lungs clear, normal breath sounds, no respiratory distress, no accessory muscle use Cardiovascular: normal peripheral pulses, normal rate, regular rhythm, no gallop/murmur Abdomen: normal bowel sounds, soft, non tender, no organomegaly, non distended , no mass Extremities: no cyanosis, no clubbing Skin: no rash, no lesions, no ulcers Microbiology Date/Time Source Procedure Growth Status 07/13/16 21:15 Blood Blood Culture - Preliminary NO GROWTH AFTER 48 HOURS Resulted 07/13/16 21:05 Blood Blood Culture - Preliminary NO GROWTH AFTER 48 HOURS Resulted Laboratory Tests Test 07/16/16 07:10 White Blood Count 5.8 K/UL (4.8-10.8) Red Blood Count 4.87 M/UL (4.70-6.10) Hemoglobin 14.6 G/DL (14.2-18.0) Hematocrit 43.0 % (42.0-52.0) Mean Corpuscular Volume 88 FL (80-99) Mean Corpuscular Hemoglobin 30.0 PG (27.0-31.0) Mean Corpuscular Hemoglobin Concent 34.0 G/DL (32.0-36.0) Red Cell Distribution Width 11.8 % (11.6-14.8) Platelet Count 472 K/UL (150-450) H Mean Platelet Volume 5.7 FL (6.5-10.1) L Neutrophils (%) (Auto) 38.2 % (45.0-75.0) L Lymphocytes (%) (Auto) 50.0 % (20.0-45.0) H Monocytes (%) (Auto) 5.8 % (1.0-10.0) Eosinophils (%) (Auto) 3.8 % (0.0-3.0) H Basophils (%) (Auto) 2.2 % (0.0-2.0) H Sodium Level 138 mEQ/L (135-145) Potassium Level 4.4 mEQ/L (3.4-4.9) Chloride Level 98 mEQ/L (98-107) Carbon Dioxide Level 25 mEQ/L (20-30) Anion Gap 15 (5-15) Blood Urea Nitrogen 12 mg/dL (7-23) Creatinine 0.8 mg/dL (0.7-1.2) Estimat Glomerular Filtration Rate > 60 mL/min (>60) Glucose Level 90 mg/dL (74-106) Calcium Level 9.3 mg/dL (8.6-10.2) Current Medications Medications (Trade) Dose Ordered Sig/Elizabeth Route PRN Reason Start Time Stop Time Status Last Admin Dose Admin Acetaminophen (Tylenol) 500 mg Q4H PRN ORAL Mild Pain/Temp > 100.5 07/06/16 22:45 08/05/16 22:44 Daptomycin/Sodium Chloride (Cubicin/Sodium Chloride 50ml bag) 50 ml @ 100 mls/hr Q24H IV 07/11/16 20:00 08/01/16 19:59 07/15/16 21:25 Guaifenesin/ Dextromethorphan 10 ml 10 ml Q4H PRN ORAL For Cough 07/06/16 22:45 08/05/16 22:44 Heparin Sodium (Porcine) (Heparin 5000 units/ml) 5,000 units EVERY 8 HOURS SUBQ 07/05/16 22:00 08/04/16 21:59 07/16/16 14:26 Ernst Geller M.D. Jul 16, 2016 17:55
--- NOTE | 2016-07-16 18:28 | General Progress Note ---
Assessment/Plan Problem List: (1) Amphetamine abuse ICD Codes: F15.10 - Other stimulant abuse, uncomplicated SNOMED: 23953043 (2) Opiate overdose ICD Codes: T40.601A - Poisoning by unspecified narcotics, accidental ( unintentional), initial encounter SNOMED: 942618517 Qualifiers: Qualified Codes: T40.601A - Poisoning by unspecified narcotics, accidental ( unintentional), initial encounter (3) Acute encephalopathy ICD Codes: G93.40 - Encephalopathy, unspecified SNOMED: 0553957 (4) VRE (vancomycin resistant enterococcus) culture positive ICD Codes: Z22.39 - Carrier of other specified bacterial diseases SNOMED: 588778971 Assessment/Plan Coag neg staph bacteremia, abx per ID, will f/u with ID rec Mild Anemia - Monitor H/H Continue DVT prophylaxis with heparin Encephalopathy - resolved Poly substance abuse - Drug rehab rec DC plan Subjective Constitutional: Denies: chills, diaphoresis, fever, malaise, no symptoms, other , weakness HEENT: Denies: blurred vision, double vision, ear discharge, ear pain, eye pain , mouth pain, mouth swelling, no symptoms, nose congestion, nose pain, other, tearing, throat pain, throat swelling Cardiovascular: Denies: chest pain, edema, irregular heart rate, lightheadedness, no symptoms, other, palpitations, syncope Respiratory: Denies: SOB at rest, SOB with excertion, cough, no symptoms, orthopnea, other, shortness of breath, sputum, stridor, wheezing Gastrointestinal/Abdominal: Denies: abdomen distended, abdominal pain, black stools, blood in stool, constipated, diarrhea, difficulty swallowing, nausea, no symptoms, other, poor appetite, poor fluid intake, rectal bleeding, tarry stools, vomiting Genitourinary: Denies: burning, discharge, flank pain, frequency, hematuria, incontinence, no symptoms, other, pain, urgency Neurologic/Psychiatric: Denies: anxiety, depressed, emotional problems, headache, no symptoms, numbness, other, paresthesia, pre-existing deficit, seizure, tingling, tremors, weakness Endocrine: Denies: excessive sweating, flushing, increased hunger, increased thirst, increased urine, intolerance to cold, intolerance to heat, no symptoms, other, unexplained weight gain, unexplained weight loss Hematologic/Lymphatic: Denies: anemia, easy bleeding, easy bruising, no symptoms, other Allergies: Coded Allergies: PENICILLINS (Verified Allergy, Unknown, 07/05/16) Objective Last 24 Hour Vital Signs Date Time Temp Pulse Resp B/P Pulse Ox O2 Delivery O2 Flow Rate FiO2 07/16/16 16:38 98.1 64 19 115/60 100 Room Air 07/16/16 12:00 97.5 75 18 106/58 95 Room Air 07/16/16 08:00 98.2 70 18 102/58 95 Room Air 07/16/16 04:00 98.4 66 18 114/64 98 Room Air 07/16/16 00:00 98.2 65 17 117/62 97 Room Air 07/15/16 19:00 98.2 85 20 119/65 97 Room Air Intake and Output 07/15/16 07/16/16 19:00 07:00 Intake Total 580 ml 650 ml Balance 580 ml 650 ml Intake Oral 580 ml 600 ml IV Total 50 ml # Voids 3 5 # Bowel Movements 2 Laboratory Tests 07/16/16 07:10: White Blood Count 5.8, Red Blood Count 4.87, Hemoglobin 14.6, Hematocrit 43.0, Mean Corpuscular Volume 88, Mean Corpuscular Hemoglobin 30.0, Mean Corpuscular Hemoglobin Concent 34.0, Red Cell Distribution Width 11.8, Platelet Count 472H, Mean Platelet Volume 5.7L, Neutrophils (%) (Auto) 38.2L, Lymphocytes (%) (Auto) 50.0H, Monocytes (%) (Auto) 5.8, Eosinophils (%) (Auto) 3.8H, Basophils (%) ( Auto) 2.2H, Sodium Level 138, Potassium Level 4.4, Chloride Level 98, Carbon Dioxide Level 25, Anion Gap 15, Blood Urea Nitrogen 12, Creatinine 0.8, Estimat Glomerular Filtration Rate > 60, Glucose Level 90, Calcium Level 9.3 Height (Feet): 5 Height (Inches): 10.00 Weight (Pounds): 190 General Appearance: no apparent distress EENT: normal ENT inspection Neck: normal alignment Cardiovascular: normal rate Respiratory/Chest: lungs clear Abdomen: normal bowel sounds, non tender, soft Pelvis: normal external exam Extremities: normal range of motion, non-tender, normal inspection, no calf tenderness Neurologic: alert, oriented x 3, responsive, normal mood/affect Skin: normal pigmentation, warm/dry Ca Riggs N.P. Jul 16, 2016 18:28
[2016-07-16 19:46] VITALS: BP 107/56
[2016-07-16] MEDS: DAPTOmycin 650 MG in NS 50 ML IV SCH (20:27)
[2016-07-17] VITALS: BP 113/63
[2016-07-17 04:00] VITALS: BP 96/55
[2016-07-17] MEDS: Heparin 5000 units/ml inj SUBQ SCH ×3 (05:45→22:13)
[2016-07-17 07:06] LABS: BASOPHILS % (AUTO) 1.8 % (0.0-2.0); EOSINOPHILS % (AUTO) 3.8 % (0.0-3.0); LYMPHOCYTES % (AUTO) 47.3 % (20.0-45.0); MEAN CORPUSCULAR HEMOGLOBIN 30.4 PG (27.0-31.0); MEAN CORPUSCULAR HGB CONC 34.6 G/DL (32.0-36.0); MEAN CORPUSCULAR VOLUME 88 FL (80-99); MEAN PLATELET VOLUME 5.5 FL (6.5-10.1); MONOCYTES % (AUTO) 5.6 % (1.0-10.0); NEUTROPHILS % (AUTO) 41.5 % (45.0-75.0); PLATELET COUNT 539 K/UL (150-450); RED BLOOD COUNT 4.77 M/UL (4.70-6.10); RED CELL DISTRIBUTION WIDTH 11.6 % (11.6-14.8)
[2016-07-17 07:40] LABS: ANION GAP 18 (5-15); CALCIUM 9.2 mg/dL (8.6-10.2); CARBON DIOXIDE 24 mEQ/L (20-30); CHLORIDE 97 mEQ/L (98-107); CREATININE 0.8 mg/dL (0.7-1.2); GLOMERULAR FILTRATION RATE > 60 mL/min (>60); HEMOLYSIS 36; POTASSIUM 4.2 mEQ/L (3.4-4.9); SODIUM 139 mEQ/L (135-145)
[2016-07-17 08:00] VITALS: BP 97/56
[2016-07-17 12:00] VITALS: BP 98/54
--- NOTE | 2016-07-17 12:25 | Nephrology Progress Note ---
Assessment/Plan Problem List: (1) Bacteremia (2) Sepsis (3) VRE (vancomycin resistant enterococcus) culture positive (4) Acute encephalopathy (5) Abnormal liver enzymes (6) Acute kidney injury (nontraumatic) (7) Opiate overdose (8) Amphetamine abuse (9) Fever Plan Pending MARJORIE. abx per ID. will need 9 more days on iv daptomycin. d/c planning - placement pending. Subjective Subjective no acute events. Objective Objective Last 24 Hour Vital Signs Date Time Temp Pulse Resp B/P Pulse Ox O2 Delivery O2 Flow Rate FiO2 07/17/16 08:00 98.4 71 18 97/56 98 Room Air 07/17/16 04:00 97.9 70 18 96/55 97 Room Air 07/17/16 00:00 98.2 68 18 113/63 95 Room Air 07/16/16 19:46 97.9 18 107/56 97 Room Air 07/16/16 16:38 98.1 64 19 115/60 100 Room Air Intake and Output 07/16/16 07/17/16 19:00 07:00 Intake Total 500 ml 1100 ml Balance 500 ml 1100 ml Intake Oral 500 ml 1050 ml IV Total 50 ml # Voids 2 4 # Bowel Movements 3 Laboratory Tests 07/17/16 05:20: White Blood Count 7.0, Red Blood Count 4.77, Hemoglobin 14.5, Hematocrit 42.0, Mean Corpuscular Volume 88, Mean Corpuscular Hemoglobin 30.4, Mean Corpuscular Hemoglobin Concent 34.6, Red Cell Distribution Width 11.6, Platelet Count 539H, Mean Platelet Volume 5.5L, Neutrophils (%) (Auto) 41.5L, Lymphocytes (%) (Auto) 47.3H, Monocytes (%) (Auto) 5.6, Eosinophils (%) (Auto) 3.8H, Basophils (%) ( Auto) 1.8, Sodium Level 139, Potassium Level 4.2, Chloride Level 97L, Carbon Dioxide Level 24, Anion Gap 18H, Blood Urea Nitrogen 13, Creatinine 0.8, Estimat Glomerular Filtration Rate > 60, Glucose Level 91, Calcium Level 9.2 Height (Feet): 5 Height (Inches): 10.00 Weight (Pounds): 190 General Appearance: no apparent distress Cardiovascular: normal rate, regular rhythm Respiratory/Chest: lungs clear Abdomen: non tender, soft MADAN,MINAL P.A. Jul 17, 2016 12:25
--- NOTE | 2016-07-17 12:43 | General Progress Note ---
Assessment/Plan Assessment/Plan Assessment: # Anemia 2/2 chronic disease - is mild # Leukopenia - likely med related, improved # Narcotic overdose, heroin # Encephalopathy - more alert # Transaminitis # Sinus tachycardia Recommendations: - Monitor counts - s/p neupogen on 07/04/16 - Imaging of abdomen PENDING - Medications reviewed - Follow cards, ID recs - Consider psych eval - Drug rehab as outpatient - DVT ppx with heparin sq - DW Staff Sincerely, Elijah Montes MD Subjective Constitutional: Reports: no symptoms HEENT: Reports: no symptoms Cardiovascular: Reports: no symptoms Respiratory: Reports: no symptoms Gastrointestinal/Abdominal: Reports: poor appetite Genitourinary: Reports: no symptoms Neurologic/Psychiatric: Reports: no symptoms Endocrine: Reports: no symptoms Hematologic/Lymphatic: Reports: anemia Allergies: Coded Allergies: PENICILLINS (Verified Allergy, Unknown, 07/05/16) Subjective stable, no events, is alert Objective Last 24 Hour Vital Signs Date Time Temp Pulse Resp B/P Pulse Ox O2 Delivery O2 Flow Rate FiO2 07/17/16 08:00 98.4 71 18 97/56 98 Room Air 07/17/16 04:00 97.9 70 18 96/55 97 Room Air 07/17/16 00:00 98.2 68 18 113/63 95 Room Air 07/16/16 19:46 97.9 18 107/56 97 Room Air 07/16/16 16:38 98.1 64 19 115/60 100 Room Air Intake and Output 07/16/16 07/17/16 19:00 07:00 Intake Total 500 ml 1100 ml Balance 500 ml 1100 ml Intake Oral 500 ml 1050 ml IV Total 50 ml # Voids 2 4 # Bowel Movements 3 Laboratory Tests 07/17/16 05:20: White Blood Count 7.0, Red Blood Count 4.77, Hemoglobin 14.5, Hematocrit 42.0, Mean Corpuscular Volume 88, Mean Corpuscular Hemoglobin 30.4, Mean Corpuscular Hemoglobin Concent 34.6, Red Cell Distribution Width 11.6, Platelet Count 539H, Mean Platelet Volume 5.5L, Neutrophils (%) (Auto) 41.5L, Lymphocytes (%) (Auto) 47.3H, Monocytes (%) (Auto) 5.6, Eosinophils (%) (Auto) 3.8H, Basophils (%) ( Auto) 1.8, Sodium Level 139, Potassium Level 4.2, Chloride Level 97L, Carbon Dioxide Level 24, Anion Gap 18H, Blood Urea Nitrogen 13, Creatinine 0.8, Estimat Glomerular Filtration Rate > 60, Glucose Level 91, Calcium Level 9.2 Height (Feet): 5 Height (Inches): 10.00 Weight (Pounds): 190 General Appearance: no apparent distress EENT: TMs normal Neck: normal inspection Cardiovascular: regular rhythm Respiratory/Chest: lungs clear Abdomen: non tender Extremities: non-tender Edema: 1+ Leg (L), 1+ Leg (R) Edema: mild edema Neurologic: alert Skin: warm/dry Elijah Montes Jul 17, 2016 12:43
--- NOTE | 2016-07-17 15:31 | Cardiac Electrophysiology PN ---
Assessment/Plan Assessment/Plan 1. Sinus tachycardia secondary to amphetamine use. Echo normal EF. 2. Polysubstance abuse with amphetamine and opiate . 3. Leukopenia. 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 5. Coag negative staph sepsis in high risk patient who is actively injecting drugs , on daptomycin for 4 weeks course of therapy.2D echo ruled out vegetations.Awaiting MARJORIE to rule out endocarditis DW RN Subjective Subjective Comfortable in NAD.No events overnight. .Needs 8 more days of antibiotics as inpatient. Objective Last 24 Hour Vital Signs Date Time Temp Pulse Resp B/P Pulse Ox O2 Delivery O2 Flow Rate FiO2 07/17/16 12:00 98.2 76 18 98/54 98 Room Air 07/17/16 08:00 98.4 71 18 97/56 98 Room Air 07/17/16 04:00 97.9 70 18 96/55 97 Room Air 07/17/16 00:00 98.2 68 18 113/63 95 Room Air 07/16/16 19:46 97.9 18 107/56 97 Room Air 07/16/16 16:38 98.1 64 19 115/60 100 Room Air Intake and Output 07/16/16 07/17/16 19:00 07:00 Intake Total 500 ml 1100 ml Balance 500 ml 1100 ml Intake Oral 500 ml 1050 ml IV Total 50 ml # Voids 2 4 # Bowel Movements 3 Laboratory Tests Test 07/17/16 05:20 White Blood Count 7.0 K/UL (4.8-10.8) Red Blood Count 4.77 M/UL (4.70-6.10) Hemoglobin 14.5 G/DL (14.2-18.0) Hematocrit 42.0 % (42.0-52.0) Mean Corpuscular Volume 88 FL (80-99) Mean Corpuscular Hemoglobin 30.4 PG (27.0-31.0) Mean Corpuscular Hemoglobin Concent 34.6 G/DL (32.0-36.0) Red Cell Distribution Width 11.6 % (11.6-14.8) Platelet Count 539 K/UL (150-450) H Mean Platelet Volume 5.5 FL (6.5-10.1) L Neutrophils (%) (Auto) 41.5 % (45.0-75.0) L Lymphocytes (%) (Auto) 47.3 % (20.0-45.0) H Monocytes (%) (Auto) 5.6 % (1.0-10.0) Eosinophils (%) (Auto) 3.8 % (0.0-3.0) H Basophils (%) (Auto) 1.8 % (0.0-2.0) Sodium Level 139 mEQ/L (135-145) Potassium Level 4.2 mEQ/L (3.4-4.9) Chloride Level 97 mEQ/L (98-107) L Carbon Dioxide Level 24 mEQ/L (20-30) Anion Gap 18 (5-15) H Blood Urea Nitrogen 13 mg/dL (7-23) Creatinine 0.8 mg/dL (0.7-1.2) Estimat Glomerular Filtration Rate > 60 mL/min (>60) Glucose Level 91 mg/dL (74-106) Calcium Level 9.2 mg/dL (8.6-10.2) Objective HEAD AND NECK: Showed no JVD. LUNGS: Clear. CARDIOVASCULAR: Regular S1 and S2. No gallop or murmur. ABDOMEN: Soft. EXTREMITIES: No pitting edema. SAILAJA MCPHERSON Jul 17, 2016 15:31
[2016-07-17 16:41] VITALS: BP 98/56
[2016-07-17] MEDS ORDERED: NS 275ml ONE (18:28)
[2016-07-17] MEDS ORDERED: Tubing IV Secondary IV ONE (18:28)
--- NOTE | 2016-07-17 18:32 | Infectious Diseases Prog Note ---
Assessment/Plan Problems: (1) Sepsis Assessment & Plan: with coag negative staph , and high crystal for vancomycin, in high risk patient who is actively injecting drugs and was septic on presentation , will continue daptomycin for 4 weeks course of therapy , echo ruled out vegetations, but need to rule out endocarditis since he is a high risk patient with active IVDU, await MARJORIE (2) Amphetamine abuse Assessment & Plan: recommend counseling, screening for HIV, and Hepatitis are negative (3) VRE (vancomycin resistant enterococcus) culture positive Assessment & Plan: keep in contact isolation Subjective Constitutional: Reports: no symptoms HEENT: Reports: no symptoms Respiratory: Reports: no symptoms Breasts: Reports: no symptoms Cardiovascular: Reports: no symptoms Gastrointestinal/Abdominal: Reports: no symptoms Genitourinary: Reports: no symptoms Neurologic: Reports: no symptoms Psychiatric: Reports: no symptoms Skin: Reports: no symptoms Endocrine: Reports: no symptoms Hematologic: Reports: no symptoms Allergies: Coded Allergies: PENICILLINS (Verified Allergy, Unknown, 07/05/16) Subjective he was doing well, alert and comfortable, denied any fever or chills, no cough or SOB. Objective Vital Signs Last 24 Hour Vital Signs Date Time Temp Pulse Resp B/P Pulse Ox O2 Delivery O2 Flow Rate FiO2 07/17/16 16:41 98.2 76 18 98/56 76 Room Air 07/17/16 12:00 98.2 76 18 98/54 98 Room Air 07/17/16 08:00 98.4 71 18 97/56 98 Room Air 07/17/16 04:00 97.9 70 18 96/55 97 Room Air 07/17/16 00:00 98.2 68 18 113/63 95 Room Air 07/16/16 19:46 97.9 18 107/56 97 Room Air Height (Feet): 5 Height (Inches): 10.00 Weight (Pounds): 190 General Appearance: WD/WN, no acute distress HEENT: normocephalic, atraumatic, anicteric, mucous membranes moist Respiratory/Chest: chest wall non-tender, lungs clear, normal breath sounds, no respiratory distress, no accessory muscle use Cardiovascular: normal peripheral pulses, normal rate, regular rhythm, no gallop/murmur Abdomen: normal bowel sounds, soft, non tender, no organomegaly, non distended , no mass Extremities: no cyanosis, no clubbing Skin: no rash, no lesions Laboratory Tests Test 07/17/16 05:20 White Blood Count 7.0 K/UL (4.8-10.8) Red Blood Count 4.77 M/UL (4.70-6.10) Hemoglobin 14.5 G/DL (14.2-18.0) Hematocrit 42.0 % (42.0-52.0) Mean Corpuscular Volume 88 FL (80-99) Mean Corpuscular Hemoglobin 30.4 PG (27.0-31.0) Mean Corpuscular Hemoglobin Concent 34.6 G/DL (32.0-36.0) Red Cell Distribution Width 11.6 % (11.6-14.8) Platelet Count 539 K/UL (150-450) H Mean Platelet Volume 5.5 FL (6.5-10.1) L Neutrophils (%) (Auto) 41.5 % (45.0-75.0) L Lymphocytes (%) (Auto) 47.3 % (20.0-45.0) H Monocytes (%) (Auto) 5.6 % (1.0-10.0) Eosinophils (%) (Auto) 3.8 % (0.0-3.0) H Basophils (%) (Auto) 1.8 % (0.0-2.0) Sodium Level 139 mEQ/L (135-145) Potassium Level 4.2 mEQ/L (3.4-4.9) Chloride Level 97 mEQ/L (98-107) L Carbon Dioxide Level 24 mEQ/L (20-30) Anion Gap 18 (5-15) H Blood Urea Nitrogen 13 mg/dL (7-23) Creatinine 0.8 mg/dL (0.7-1.2) Estimat Glomerular Filtration Rate > 60 mL/min (>60) Glucose Level 91 mg/dL (74-106) Calcium Level 9.2 mg/dL (8.6-10.2) Current Medications Medications (Trade) Dose Ordered Sig/Elizabeth Route PRN Reason Start Time Stop Time Status Last Admin Dose Admin Acetaminophen (Tylenol) 500 mg Q4H PRN ORAL Mild Pain/Temp > 100.5 07/06/16 22:45 08/05/16 22:44 Guaifenesin/ Dextromethorphan 10 ml 10 ml Q4H PRN ORAL For Cough 07/06/16 22:45 08/05/16 22:44 Heparin Sodium (Porcine) (Heparin 5000 units/ml) 5,000 units EVERY 8 HOURS SUBQ 07/05/16 22:00 08/04/16 21:59 07/17/16 14:14 Linezolid (Zyvox) 300 ml @ 300 mls/hr Q12HR IVPB 07/17/16 21:00 07/31/16 20:59 Ernst Geller M.D. Jul 17, 2016 18:32
[2016-07-17 20:00] VITALS: BP 116/64
[2016-07-17] MEDS: Linezolid 600mg/300mL Premix IVPB SCH (21:46)
[2016-07-18] VITALS: BP 103/60
[2016-07-18 04:00] VITALS: BP 103/67
[2016-07-18] MEDS: Heparin 5000 units/ml inj SUBQ SCH ×3 (05:44→21:16)
[2016-07-18 08:00] VITALS: BP 104/54
[2016-07-18] MEDS: Linezolid 600mg/300mL Premix IVPB SCH ×2 (09:32→21:15)
--- NOTE | 2016-07-18 10:15 | General Progress Note ---
Assessment/Plan Assessment/Plan Assessment: # Anemia 2/2 chronic disease - is mild # Leukopenia - likely med related, improved # Thrombocytosis - likely 2/2 reactive process # Narcotic overdose, heroin # Encephalopathy - more alert # Transaminitis # Sinus tachycardia Recommendations: - Monitor counts - Imaging of abdomen PENDING - Medications reviewed - Follow cards, ID recs - Consider psych eval - Drug rehab as outpatient - DVT ppx with heparin sq - DW Staff Sincerely, Yaima Montes MD Subjective Constitutional: Reports: no symptoms HEENT: Reports: no symptoms Cardiovascular: Reports: no symptoms Respiratory: Reports: no symptoms Gastrointestinal/Abdominal: Reports: no symptoms Genitourinary: Reports: no symptoms Neurologic/Psychiatric: Reports: no symptoms Endocrine: Reports: no symptoms Hematologic/Lymphatic: Reports: anemia Allergies: Coded Allergies: PENICILLINS (Verified Allergy, Unknown, 07/05/16) Subjective stable, no events, no fevers or chills Objective Last 24 Hour Vital Signs Date Time Temp Pulse Resp B/P Pulse Ox O2 Delivery O2 Flow Rate FiO2 07/18/16 08:00 98.1 66 18 104/54 97 Room Air 07/18/16 04:00 97.2 60 18 103/67 97 Room Air 07/18/16 00:00 98.1 59 18 103/60 98 Room Air 07/17/16 20:00 97.9 57 18 116/64 97 Room Air 07/17/16 16:41 98.2 76 18 98/56 76 Room Air 07/17/16 12:00 98.2 76 18 98/54 98 Room Air Intake and Output 07/17/16 07/18/16 19:00 07:00 Intake Total 600 ml Balance 600 ml Intake Oral 600 ml # Voids 2 3 # Bowel Movements 1 Height (Feet): 5 Height (Inches): 10.00 Weight (Pounds): 190 General Appearance: no apparent distress EENT: TMs normal Neck: supple Cardiovascular: regular rhythm Respiratory/Chest: lungs clear Abdomen: non tender Genitourinary/Rectal: heme negative stool Extremities: non-tender Edema: 1+ Leg (L), 1+ Leg (R) Edema: mild edema Neurologic: no motor/sensory deficits Skin: warm/dry YAIMA MONTES Jul 18, 2016 10:15
[2016-07-18 12:00] VITALS: BP 110/65
[2016-07-18 17:00] VITALS: BP 114/64
[2016-07-18 20:00] VITALS: BP 110/68
--- NOTE | 2016-07-18 22:34 | Nephrology Progress Note ---
Assessment/Plan Problem List: (1) Fever (2) Amphetamine abuse (3) Opiate overdose (4) VRE (vancomycin resistant enterococcus) culture positive (5) Sepsis (6) Acute encephalopathy Assessment: 2/2 heroin and amphetamine use (7) Abnormal liver enzymes (8) Acute kidney injury (nontraumatic) Assessment: better/ (9) Bacteremia Assessment: CoNS Plan d/c IVF. Cardio following. ID following. d/c held d/t +bcx. cont IV abx per ID rec. will need 4 more weeks. pending MARJORIE. Subjective Subjective no new c/o. Objective Objective Last 24 Hour Vital Signs Date Time Temp Pulse Resp B/P Pulse Ox O2 Delivery O2 Flow Rate FiO2 07/18/16 17:00 98.4 64 18 114/64 98 Room Air 07/18/16 12:00 98.1 66 18 110/65 98 Room Air 07/18/16 08:00 98.1 66 18 104/54 97 Room Air 07/18/16 04:00 97.2 60 18 103/67 97 Room Air 07/18/16 00:00 98.1 59 18 103/60 98 Room Air Intake and Output 07/17/16 07/18/16 19:00 07:00 Intake Total 600 ml Balance 600 ml Intake Oral 600 ml # Voids 2 3 # Bowel Movements 1 Height (Feet): 5 Height (Inches): 10.00 Weight (Pounds): 190 General Appearance: no apparent distress Cardiovascular: normal rate, regular rhythm Respiratory/Chest: lungs clear Abdomen: non tender, soft ABBEY VALENTINE Jul 18, 2016 22:34
[2016-07-19] VITALS: BP 101/55
[2016-07-19 04:00] VITALS: BP 98/58
[2016-07-19] MEDS: Heparin 5000 units/ml inj SUBQ SCH ×3 (06:05→21:38)
[2016-07-19 08:00] VITALS: BP 103/45
[2016-07-19] MEDS: Linezolid 600mg/300mL Premix IVPB SCH ×2 (08:49→21:39)
--- NOTE | 2016-07-19 11:20 | General Progress Note ---
Assessment/Plan Assessment/Plan Assessment: # Anemia 2/2 chronic disease - is mild, stable # Leukopenia - likely med related, improved # Thrombocytosis - likely 2/2 reactive process # Narcotic overdose, heroin # Encephalopathy - more alert # Transaminitis # Sinus tachycardia Recommendations: - Monitor counts - Imaging of abdomen PENDING - Medications have been reviewed - Follow cards, ID recs - Consider psych eval - Drug rehab as an outpatient - DVT ppx with heparin sq - DW Staff Sincerely, Elijah Montes MD Subjective Constitutional: Reports: no symptoms HEENT: Reports: no symptoms Cardiovascular: Reports: no symptoms Respiratory: Reports: no symptoms Gastrointestinal/Abdominal: Reports: poor appetite Genitourinary: Reports: no symptoms Neurologic/Psychiatric: Reports: no symptoms Endocrine: Reports: no symptoms Hematologic/Lymphatic: Reports: anemia Allergies: Coded Allergies: PENICILLINS (Verified Allergy, Unknown, 07/05/16) Subjective stable, no events, is alert, no bleeding Objective Last 24 Hour Vital Signs Date Time Temp Pulse Resp B/P Pulse Ox O2 Delivery O2 Flow Rate FiO2 07/19/16 08:00 98.2 72 20 103/45 96 Room Air 07/19/16 04:00 97.7 65 18 98/58 98 Room Air 07/19/16 00:00 98.2 64 18 101/55 99 Room Air 07/18/16 20:00 98.2 62 18 110/68 98 Room Air 07/18/16 17:00 98.4 64 18 114/64 98 Room Air 07/18/16 12:00 98.1 66 18 110/65 98 Room Air Intake and Output 07/18/16 07/19/16 19:00 07:00 Intake Total 900 ml 840 ml Balance 900 ml 840 ml Intake Oral 600 ml 540 ml IV Total 300 ml 300 ml # Voids 2 1 # Bowel Movements 1 Height (Feet): 5 Height (Inches): 10.00 Weight (Pounds): 190 General Appearance: no apparent distress EENT: TMs normal Neck: supple Cardiovascular: normal rate Respiratory/Chest: no respiratory distress Abdomen: no organomegaly Extremities: non-tender Edema: 1+ Leg (L), 1+ Leg (R) Neurologic: alert Skin: warm/dry Elijah Montes Jul 19, 2016 11:20
[2016-07-19 12:00] VITALS: BP 110/62
--- NOTE | 2016-07-19 13:04 | General Progress Note ---
Assessment/Plan Problem List: (1) Amphetamine abuse ICD Codes: F15.10 - Other stimulant abuse, uncomplicated SNOMED: 71174184 (2) Opiate overdose ICD Codes: T40.601A - Poisoning by unspecified narcotics, accidental ( unintentional), initial encounter SNOMED: 003623968 Qualifiers: Qualified Codes: T40.601A - Poisoning by unspecified narcotics, accidental ( unintentional), initial encounter (3) Acute encephalopathy ICD Codes: G93.40 - Encephalopathy, unspecified SNOMED: 1128787 (4) VRE (vancomycin resistant enterococcus) culture positive ICD Codes: Z22.39 - Carrier of other specified bacterial diseases SNOMED: 656526656 Status: doing well, stable Assessment/Plan Coag neg staph bacteremia, abx per ID, will f/u with ID rec Mild Anemia - Monitor H/H Continue DVT prophylaxis with heparin Encephalopathy - resolved Poly substance abuse - Drug rehab rec DC plan Subjective Constitutional: Denies: chills, diaphoresis, fever, malaise, no symptoms, other , weakness HEENT: Denies: blurred vision, double vision, ear discharge, ear pain, eye pain , mouth pain, mouth swelling, no symptoms, nose congestion, nose pain, other, tearing, throat pain, throat swelling Cardiovascular: Denies: chest pain, edema, irregular heart rate, lightheadedness, no symptoms, other, palpitations, syncope Respiratory: Denies: SOB at rest, SOB with excertion, cough, no symptoms, orthopnea, other, shortness of breath, sputum, stridor, wheezing Gastrointestinal/Abdominal: Denies: abdomen distended, abdominal pain, black stools, blood in stool, constipated, diarrhea, difficulty swallowing, nausea, no symptoms, other, poor appetite, poor fluid intake, rectal bleeding, tarry stools, vomiting Genitourinary: Denies: burning, discharge, flank pain, frequency, hematuria, incontinence, no symptoms, other, pain, urgency Neurologic/Psychiatric: Denies: anxiety, depressed, emotional problems, headache, no symptoms, numbness, other, paresthesia, pre-existing deficit, seizure, tingling, tremors, weakness Endocrine: Denies: excessive sweating, flushing, increased hunger, increased thirst, increased urine, intolerance to cold, intolerance to heat, no symptoms, other, unexplained weight gain, unexplained weight loss Hematologic/Lymphatic: Denies: anemia, easy bleeding, easy bruising, no symptoms, other Allergies: Coded Allergies: PENICILLINS (Verified Allergy, Unknown, 07/05/16) Subjective Met pt at the nurses station, he was asking the RN when he's going to have the ultrasound done. He denies any discomfort at this time Objective Last 24 Hour Vital Signs Date Time Temp Pulse Resp B/P Pulse Ox O2 Delivery O2 Flow Rate FiO2 07/19/16 08:00 98.2 72 20 103/45 96 Room Air 07/19/16 04:00 97.7 65 18 98/58 98 Room Air 07/19/16 00:00 98.2 64 18 101/55 99 Room Air 07/18/16 20:00 98.2 62 18 110/68 98 Room Air 07/18/16 17:00 98.4 64 18 114/64 98 Room Air Intake and Output 07/18/16 07/19/16 19:00 07:00 Intake Total 900 ml 840 ml Balance 900 ml 840 ml Intake Oral 600 ml 540 ml IV Total 300 ml 300 ml # Voids 2 1 # Bowel Movements 1 Height (Feet): 5 Height (Inches): 10.00 Weight (Pounds): 190 General Appearance: no apparent distress, alert EENT: PERRL/EOMI, normal ENT inspection Neck: normal alignment, supple, normal inspection Cardiovascular: normal peripheral pulses, normal rate, regular rhythm, no JVD Respiratory/Chest: lungs clear, normal breath sounds, no respiratory distress Abdomen: normal bowel sounds, non tender, soft, no organomegaly Pelvis: normal external exam Extremities: normal range of motion, non-tender, normal inspection, no calf tenderness Neurologic: alert, oriented x 3, responsive, normal mood/affect Skin: normal pigmentation, warm/dry Ca Riggs N.P. Jul 19, 2016 13:04
--- NOTE | 2016-07-19 14:51 | General Progress Note ---
Assessment/Plan Problem List: (1) Amphetamine abuse ICD Codes: F15.10 - Other stimulant abuse, uncomplicated SNOMED: 00243937 (2) Opiate overdose ICD Codes: T40.601A - Poisoning by unspecified narcotics, accidental ( unintentional), initial encounter SNOMED: 040526218 Qualifiers: Qualified Codes: T40.601A - Poisoning by unspecified narcotics, accidental ( unintentional), initial encounter (3) Acute encephalopathy ICD Codes: G93.40 - Encephalopathy, unspecified SNOMED: 6152969 (4) VRE (vancomycin resistant enterococcus) culture positive ICD Codes: Z22.39 - Carrier of other specified bacterial diseases SNOMED: 363771939 Assessment/Plan Coag neg staph bacteremia, abx per ID, will f/u with ID rec Mild Anemia - Monitor H/H Continue DVT prophylaxis with heparin Encephalopathy - resolved Poly substance abuse - Drug rehab rec DC plan Subjective Date patient seen: Jul 19, 2016 Constitutional: Denies: chills, diaphoresis, fever, malaise, no symptoms, other , weakness HEENT: Denies: blurred vision, double vision, ear discharge, ear pain, eye pain , mouth pain, mouth swelling, no symptoms, nose congestion, nose pain, other, tearing, throat pain, throat swelling Cardiovascular: Denies: chest pain, edema, irregular heart rate, lightheadedness, no symptoms, other, palpitations, syncope Respiratory: Denies: SOB at rest, SOB with excertion, cough, no symptoms, orthopnea, other, shortness of breath, sputum, stridor, wheezing Gastrointestinal/Abdominal: Denies: abdomen distended, abdominal pain, black stools, blood in stool, constipated, diarrhea, difficulty swallowing, nausea, no symptoms, other, poor appetite, poor fluid intake, rectal bleeding, tarry stools, vomiting Genitourinary: Denies: burning, discharge, flank pain, frequency, hematuria, incontinence, no symptoms, other, pain, urgency Neurologic/Psychiatric: Denies: anxiety, depressed, emotional problems, headache, no symptoms, numbness, other, paresthesia, pre-existing deficit, seizure, tingling, tremors, weakness Endocrine: Denies: excessive sweating, flushing, increased hunger, increased thirst, increased urine, intolerance to cold, intolerance to heat, no symptoms, other, unexplained weight gain, unexplained weight loss Hematologic/Lymphatic: Denies: anemia, easy bleeding, easy bruising, no symptoms, other Allergies: Coded Allergies: PENICILLINS (Verified Allergy, Unknown, 07/05/16) Subjective In bed, in no distress, denies discomfort Objective Last 24 Hour Vital Signs Date Time Temp Pulse Resp B/P Pulse Ox O2 Delivery O2 Flow Rate FiO2 07/19/16 12:00 97.9 64 20 110/62 98 Room Air 07/19/16 08:00 98.2 72 20 103/45 96 Room Air 07/19/16 04:00 97.7 65 18 98/58 98 Room Air 07/19/16 00:00 98.2 64 18 101/55 99 Room Air 07/18/16 20:00 98.2 62 18 110/68 98 Room Air 07/18/16 17:00 98.4 64 18 114/64 98 Room Air Intake and Output 07/18/16 07/19/16 19:00 07:00 Intake Total 900 ml 840 ml Balance 900 ml 840 ml Intake Oral 600 ml 540 ml IV Total 300 ml 300 ml # Voids 2 1 # Bowel Movements 1 Height (Feet): 5 Height (Inches): 10.00 Weight (Pounds): 190 Ca Riggs N.P. Jul 19, 2016 14:51
--- NOTE | 2016-07-19 15:22 | Infectious Diseases Prog Note ---
Assessment/Plan Problems: (1) Sepsis Assessment & Plan: with coag negative staph , and high crystal for vancomycin, in high risk patient who is actively injecting drugs and was septic on presentation , will continue daptomycin for 4 weeks course of therapy , now on zyvox since pharmacy ran out of daptomycin, echo ruled out vegetations, but need to rule out endocarditis since he is a high risk patient with active IVDU, await MARJORIE (2) Amphetamine abuse Assessment & Plan: recommend counseling, screening for HIV, and Hepatitis are negative (3) VRE (vancomycin resistant enterococcus) culture positive Assessment & Plan: keep in contact isolation Subjective Constitutional: Reports: no symptoms HEENT: Reports: no symptoms Respiratory: Reports: no symptoms Breasts: Reports: no symptoms Cardiovascular: Reports: no symptoms Gastrointestinal/Abdominal: Reports: no symptoms Genitourinary: Reports: no symptoms Neurologic: Reports: no symptoms Psychiatric: Reports: no symptoms Skin: Reports: no symptoms Endocrine: Reports: no symptoms Hematologic: Reports: no symptoms Allergies: Coded Allergies: PENICILLINS (Verified Allergy, Unknown, 07/05/16) Subjective he was doing well, alert and comfortable, denied any fever or chills, no cough or SOB. Objective Vital Signs Last 24 Hour Vital Signs Date Time Temp Pulse Resp B/P Pulse Ox O2 Delivery O2 Flow Rate FiO2 07/19/16 12:00 97.9 64 20 110/62 98 Room Air 07/19/16 08:00 98.2 72 20 103/45 96 Room Air 07/19/16 04:00 97.7 65 18 98/58 98 Room Air 07/19/16 00:00 98.2 64 18 101/55 99 Room Air 07/18/16 20:00 98.2 62 18 110/68 98 Room Air 07/18/16 17:00 98.4 64 18 114/64 98 Room Air Height (Feet): 5 Height (Inches): 10.00 Weight (Pounds): 190 General Appearance: WD/WN, no acute distress HEENT: normocephalic, atraumatic, anicteric, mucous membranes moist, PERRL Respiratory/Chest: chest wall non-tender, lungs clear, normal breath sounds, no respiratory distress, no accessory muscle use Cardiovascular: normal peripheral pulses, normal rate, regular rhythm, no gallop/murmur Abdomen: normal bowel sounds, soft, non tender, no organomegaly, non distended , no mass Extremities: no cyanosis, no clubbing Skin: no rash, no lesions Current Medications Medications (Trade) Dose Ordered Sig/Elizabeth Route PRN Reason Start Time Stop Time Status Last Admin Dose Admin Acetaminophen (Tylenol) 500 mg Q4H PRN ORAL Mild Pain/Temp > 100.5 07/06/16 22:45 08/05/16 22:44 Guaifenesin/ Dextromethorphan 10 ml 10 ml Q4H PRN ORAL For Cough 07/06/16 22:45 08/05/16 22:44 Heparin Sodium (Porcine) (Heparin 5000 units/ml) 5,000 units EVERY 8 HOURS SUBQ 07/05/16 22:00 08/04/16 21:59 07/19/16 13:25 Linezolid (Zyvox) 300 ml @ 300 mls/hr Q12HR IVPB 07/17/16 21:00 07/31/16 20:59 07/19/16 08:49 Ernst Geller M.D. Jul 19, 2016 15:21
[2016-07-19 16:00] VITALS: BP 115/69
--- NOTE | 2016-07-19 16:47 | Cardiac Electrophysiology PN ---
Assessment/Plan Assessment/Plan 1. Sinus tachycardia secondary to amphetamine use and sepsis. Echo normal EF. 2. Polysubstance abuse with amphetamine and opiate. 3. Leukopenia. 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 5. Coag negative staph sepsis in high risk patient who is actively injecting drugs , on daptomycin for 4 weeks course of therapy.2D echo ruled out vegetations. MARJORIE to rule out endocarditis pending. ROMULO RN Subjective Subjective Comfortable in NAD.No chest pain or SOB. Objective Last 24 Hour Vital Signs Date Time Temp Pulse Resp B/P Pulse Ox O2 Delivery O2 Flow Rate FiO2 07/19/16 16:00 98.1 73 20 115/69 98 Room Air 07/19/16 12:00 97.9 64 20 110/62 98 Room Air 07/19/16 08:00 98.2 72 20 103/45 96 Room Air 07/19/16 04:00 97.7 65 18 98/58 98 Room Air 07/19/16 00:00 98.2 64 18 101/55 99 Room Air 07/18/16 20:00 98.2 62 18 110/68 98 Room Air 07/18/16 17:00 98.4 64 18 114/64 98 Room Air Intake and Output 07/18/16 07/19/16 19:00 07:00 Intake Total 900 ml 840 ml Balance 900 ml 840 ml Intake Oral 600 ml 540 ml IV Total 300 ml 300 ml # Voids 2 1 # Bowel Movements 1 Current Medications Medications (Trade) Dose Ordered Sig/Elizabeth Route PRN Reason Start Time Stop Time Status Last Admin Dose Admin Acetaminophen (Tylenol) 500 mg Q4H PRN ORAL Mild Pain/Temp > 100.5 07/06/16 22:45 08/05/16 22:44 Guaifenesin/ Dextromethorphan 10 ml 10 ml Q4H PRN ORAL For Cough 07/06/16 22:45 08/05/16 22:44 Heparin Sodium (Porcine) (Heparin 5000 units/ml) 5,000 units EVERY 8 HOURS SUBQ 07/05/16 22:00 08/04/16 21:59 07/19/16 13:25 Linezolid (Zyvox) 300 ml @ 300 mls/hr Q12HR IVPB 07/17/16 21:00 07/31/16 20:59 07/19/16 08:49 Objective HEAD AND NECK: Showed no JVD. LUNGS: Clear. CARDIOVASCULAR: Regular S1 and S2. No gallop or murmur. ABDOMEN: Soft. EXTREMITIES: No pitting edema. SAILAJA MCPHERSON Jul 19, 2016 16:47
[2016-07-19 19:00] VITALS: BP 109/56
[2016-07-20] VITALS: BP 93/53
[2016-07-20 04:00] VITALS: BP 101/54
[2016-07-20] MEDS: Heparin 5000 units/ml inj SUBQ SCH ×3 (07:02→21:16)
[2016-07-20 08:10] VITALS: BP 138/75
[2016-07-20] MEDS: Linezolid 600mg/300mL Premix IVPB SCH (09:10)
--- NOTE | 2016-07-20 09:10 | General Progress Note ---
Assessment/Plan Assessment/Plan Assessment: # Anemia 2/2 chronic disease - is mild, stable, not bleeding # Leukopenia - likely med related, improved # Thrombocytosis - likely 2/2 reactive process # Narcotic overdose, heroin # Encephalopathy - more alert # Transaminitis # Sinus tachycardia Recommendations: - Monitor counts - Imaging of abdomen PENDING - Medications have been reviewed - Follow cards, ID recs - Consider psych eval - Drug rehab as an outpatient - DVT ppx with heparin sq - DW Staff Sincerely, Elijah Montes MD Subjective Constitutional: Reports: no symptoms HEENT: Reports: no symptoms Cardiovascular: Reports: no symptoms Respiratory: Reports: no symptoms Gastrointestinal/Abdominal: Reports: poor appetite Genitourinary: Reports: no symptoms Neurologic/Psychiatric: Reports: no symptoms Endocrine: Reports: no symptoms Hematologic/Lymphatic: Reports: anemia Allergies: Coded Allergies: PENICILLINS (Verified Allergy, Unknown, 07/05/16) Subjective stable, no events, is alert, not bleeding Objective Last 24 Hour Vital Signs Date Time Temp Pulse Resp B/P Pulse Ox O2 Delivery O2 Flow Rate FiO2 07/20/16 08:10 97.5 113 20 138/75 94 Room Air 07/20/16 04:00 98.2 69 18 101/54 94 Room Air 07/20/16 00:00 98.4 67 18 93/53 95 Room Air 07/19/16 19:00 98.2 67 20 109/56 98 Room Air 07/19/16 16:00 98.1 73 20 115/69 98 Room Air 07/19/16 12:00 97.9 64 20 110/62 98 Room Air Intake and Output 07/19/16 07/20/16 19:00 07:00 Intake Total 660 ml 120 ml Balance 660 ml 120 ml Intake Oral 360 ml 120 ml IV Total 300 ml # Voids 2 5 Height (Feet): 5 Height (Inches): 10.00 Weight (Pounds): 190 General Appearance: no apparent distress EENT: TMs normal Neck: supple Cardiovascular: regular rhythm Respiratory/Chest: normal breath sounds Abdomen: no organomegaly Extremities: non-tender Edema: 1+ Leg (L), 1+ Leg (R) Edema: mild edema Neurologic: alert Skin: warm/dry Elijah Montes Jul 20, 2016 09:10
[2016-07-20 12:00] VITALS: BP 102/55
[2016-07-20 16:00] VITALS: BP 106/57
[2016-07-20] MEDS: DAPTOmycin 700 MG in NS 50 ML IV SCH (17:04)
--- NOTE | 2016-07-20 17:27 | Cardiac Electrophysiology PN ---
Assessment/Plan Assessment/Plan 1. Sinus tachycardia secondary to amphetamine use and sepsis. Echo normal EF. 2. Polysubstance abuse with amphetamine and opiate. 3. Leukopenia. 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 5. Coag negative staph sepsis in high risk patient who is actively injecting drugs , on daptomycin for 4 weeks course of therapy per Dr. Geller. 2D echo ruled out vegetations. Refused MARJORIE. ROMULO RN Subjective Subjective Comfortable in NAD.No chest pain or SOB.Still on IV antibiotics. Objective Last 24 Hour Vital Signs Date Time Temp Pulse Resp B/P Pulse Ox O2 Delivery O2 Flow Rate FiO2 07/20/16 16:00 97.7 62 20 106/57 99 Room Air 07/20/16 12:00 97.9 67 18 102/55 100 Room Air 07/20/16 08:10 97.5 113 20 138/75 94 Room Air 07/20/16 04:00 98.2 69 18 101/54 94 Room Air 07/20/16 00:00 98.4 67 18 93/53 95 Room Air 07/19/16 19:00 98.2 67 20 109/56 98 Room Air Intake and Output 07/19/16 07/20/16 19:00 07:00 Intake Total 660 ml 120 ml Balance 660 ml 120 ml Intake Oral 360 ml 120 ml IV Total 300 ml # Voids 2 5 Current Medications Medications (Trade) Dose Ordered Sig/Elizabeth Route PRN Reason Start Time Stop Time Status Last Admin Dose Admin Acetaminophen (Tylenol) 500 mg Q4H PRN ORAL Mild Pain/Temp > 100.5 07/06/16 22:45 08/05/16 22:44 Daptomycin/Sodium Chloride (Cubicin/Sodium Chloride 50ml bag) 50 ml @ 100 mls/hr Q24H IV 07/20/16 16:00 07/27/16 15:59 07/20/16 17:04 Guaifenesin/ Dextromethorphan 10 ml 10 ml Q4H PRN ORAL For Cough 07/06/16 22:45 08/05/16 22:44 Heparin Sodium (Porcine) (Heparin 5000 units/ml) 5,000 units EVERY 8 HOURS SUBQ 07/05/16 22:00 08/04/16 21:59 07/20/16 13:43 Objective HEAD AND NECK: Showed no JVD. LUNGS: Clear. CARDIOVASCULAR: Regular S1 and S2. No gallop or murmur. ABDOMEN: Soft. EXTREMITIES: No pitting edema. SAILAJA MCPHERSON Jul 20, 2016 17:27
--- NOTE | 2016-07-20 17:39 | Infectious Diseases Prog Note ---
Assessment/Plan Problems: (1) Sepsis Assessment & Plan: with coag negative staph , and high crystal for vancomycin, in high risk patient who is actively injecting drugs and was septic on presentation , will continue daptomycin for 4 weeks course of therapy , now on zyvox since pharmacy ran out of daptomycin, echo ruled out vegetations, but need to rule out endocarditis since he is a high risk patient with active IVDU, will treat for 4 weeks. EOT 07/30/16 (2) Amphetamine abuse Assessment & Plan: recommend counseling, screening for HIV, and Hepatitis are negative (3) VRE (vancomycin resistant enterococcus) culture positive Assessment & Plan: keep in contact isolation Subjective Constitutional: Reports: no symptoms HEENT: Reports: no symptoms Respiratory: Reports: no symptoms Breasts: Reports: no symptoms Cardiovascular: Reports: no symptoms Gastrointestinal/Abdominal: Reports: no symptoms Genitourinary: Reports: no symptoms Neurologic: Reports: no symptoms Psychiatric: Reports: no symptoms Skin: Reports: no symptoms Endocrine: Reports: no symptoms Hematologic: Reports: no symptoms Musculoskeletal: Reports: no symptoms Allergies: Coded Allergies: PENICILLINS (Verified Allergy, Unknown, 07/05/16) Subjective he was doing well, alert and comfortable, denied any fever or chills, no cough or SOB. Objective Vital Signs Last 24 Hour Vital Signs Date Time Temp Pulse Resp B/P Pulse Ox O2 Delivery O2 Flow Rate FiO2 07/20/16 16:00 97.7 62 20 106/57 99 Room Air 07/20/16 12:00 97.9 67 18 102/55 100 Room Air 07/20/16 08:10 97.5 113 20 138/75 94 Room Air 07/20/16 04:00 98.2 69 18 101/54 94 Room Air 07/20/16 00:00 98.4 67 18 93/53 95 Room Air 07/19/16 19:00 98.2 67 20 109/56 98 Room Air Height (Feet): 5 Height (Inches): 10.00 Weight (Pounds): 190 General Appearance: WD/WN, no acute distress HEENT: normocephalic, atraumatic, anicteric, mucous membranes moist Respiratory/Chest: chest wall non-tender, lungs clear, normal breath sounds, no respiratory distress, no accessory muscle use Cardiovascular: normal peripheral pulses, normal rate, regular rhythm, no gallop/murmur Abdomen: normal bowel sounds, soft, non tender, no organomegaly, non distended , no mass Extremities: no cyanosis, no clubbing Skin: no rash, no lesions, no ulcers Current Medications Medications (Trade) Dose Ordered Sig/Elizabeth Route PRN Reason Start Time Stop Time Status Last Admin Dose Admin Acetaminophen (Tylenol) 500 mg Q4H PRN ORAL Mild Pain/Temp > 100.5 07/06/16 22:45 08/05/16 22:44 Daptomycin/Sodium Chloride (Cubicin/Sodium Chloride 50ml bag) 50 ml @ 100 mls/hr Q24H IV 07/20/16 16:00 07/27/16 15:59 07/20/16 17:04 Guaifenesin/ Dextromethorphan 10 ml 10 ml Q4H PRN ORAL For Cough 07/06/16 22:45 08/05/16 22:44 Heparin Sodium (Porcine) (Heparin 5000 units/ml) 5,000 units EVERY 8 HOURS SUBQ 07/05/16 22:00 08/04/16 21:59 07/20/16 13:43 Ernst Geller M.D. Jul 20, 2016 17:39
[2016-07-20 19:00] VITALS: BP 114/64
--- NOTE | 2016-07-20 22:30 | Nephrology Progress Note ---
Assessment/Plan Problem List: (1) Fever (2) Amphetamine abuse (3) Opiate overdose (4) VRE (vancomycin resistant enterococcus) culture positive (5) Sepsis (6) Acute encephalopathy Assessment: 2/2 heroin and amphetamine use (7) Abnormal liver enzymes (8) Acute kidney injury (nontraumatic) Assessment: better/ (9) Bacteremia Assessment: CoNS Plan Cardio following. ID following. d/c held d/t +bcx. cont abx per ID. now on zyvox due to pharmacy running out of dapto. Subjective Subjective refused MARJORIE. Objective Objective Last 24 Hour Vital Signs Date Time Temp Pulse Resp B/P Pulse Ox O2 Delivery O2 Flow Rate FiO2 07/20/16 19:00 98.2 71 20 114/64 98 Room Air 07/20/16 16:00 97.7 62 20 106/57 99 Room Air 07/20/16 12:00 97.9 67 18 102/55 100 Room Air 07/20/16 08:10 97.5 113 20 138/75 94 Room Air 07/20/16 04:00 98.2 69 18 101/54 94 Room Air 07/20/16 00:00 98.4 67 18 93/53 95 Room Air Intake and Output 07/19/16 07/20/16 19:00 07:00 Intake Total 660 ml 120 ml Balance 660 ml 120 ml Intake Oral 360 ml 120 ml IV Total 300 ml # Voids 2 5 Height (Feet): 5 Height (Inches): 10.00 Weight (Pounds): 190 General Appearance: no apparent distress Cardiovascular: normal rate, regular rhythm Respiratory/Chest: lungs clear Abdomen: non tender, soft Extremities: non-pitting Neurologic: alert, oriented x 3 ABBEY VALENTINE Jul 20, 2016 22:30
[2016-07-21] VITALS: BP 101/64
[2016-07-21 04:00] VITALS: BP 95/52
--- NOTE | 2016-07-21 05:30 | General Progress Note ---
Assessment/Plan Assessment/Plan Assessment: # Thrombocytosis - likely 2/2 reactive process # Anemia 2/2 chronic disease - improved # Leukopenia - likely med related, improved # Narcotic overdose, heroin # Encephalopathy - more alert # Transaminitis # Sinus tachycardia Recommendations: - Monitor counts - Imaging of abdomen PENDING - Medications have been reviewed - Follow cards, ID, renal recs - Consider psych eval - Drug rehab as an outpatient - DVT ppx with heparin sq - DW Staff Sincerely, Elijah Montes MD Subjective Constitutional: Reports: no symptoms HEENT: Reports: no symptoms Cardiovascular: Reports: no symptoms Respiratory: Reports: no symptoms Gastrointestinal/Abdominal: Reports: poor appetite Genitourinary: Reports: no symptoms Neurologic/Psychiatric: Reports: no symptoms Endocrine: Reports: no symptoms Hematologic/Lymphatic: Reports: no symptoms Allergies: Coded Allergies: PENICILLINS (Verified Allergy, Unknown, 07/05/16) Subjective stable, no events, alert, not bleeding Objective Last 24 Hour Vital Signs Date Time Temp Pulse Resp B/P Pulse Ox O2 Delivery O2 Flow Rate FiO2 07/21/16 00:00 98.1 64 18 101/64 98 Room Air 07/20/16 19:00 98.2 71 20 114/64 98 Room Air 07/20/16 16:00 97.7 62 20 106/57 99 Room Air 07/20/16 12:00 97.9 67 18 102/55 100 Room Air 07/20/16 08:10 97.5 113 20 138/75 94 Room Air Intake and Output 07/20/16 07/21/16 19:00 07:00 Intake Total 1620 ml 520 ml Balance 1620 ml 520 ml Intake Oral 1270 ml 520 ml IV Total 350 ml # Voids 4 2 # Bowel Movements 1 Height (Feet): 5 Height (Inches): 10.00 Weight (Pounds): 190 General Appearance: no apparent distress EENT: TMs normal Neck: normal alignment Cardiovascular: regular rhythm Respiratory/Chest: lungs clear Abdomen: normal bowel sounds Extremities: non-tender Edema: no edema noted Leg (L), no edema noted Leg (R) Edema: mild edema Neurologic: alert Skin: normal pigmentation Elijah Montes Jul 21, 2016 05:30
[2016-07-21] MEDS: Heparin 5000 units/ml inj SUBQ SCH ×3 (05:32→22:00)
[2016-07-21 08:00] VITALS: BP 96/52
--- NOTE | 2016-07-21 11:27 | General Progress Note ---
Assessment/Plan Problem List: (1) Amphetamine abuse ICD Codes: F15.10 - Other stimulant abuse, uncomplicated SNOMED: 92622607 (2) Opiate overdose ICD Codes: T40.601A - Poisoning by unspecified narcotics, accidental ( unintentional), initial encounter SNOMED: 740293174 Qualifiers: Qualified Codes: T40.601A - Poisoning by unspecified narcotics, accidental ( unintentional), initial encounter (3) Acute encephalopathy ICD Codes: G93.40 - Encephalopathy, unspecified SNOMED: 4496838 (4) VRE (vancomycin resistant enterococcus) culture positive ICD Codes: Z22.39 - Carrier of other specified bacterial diseases SNOMED: 060896312 Assessment/Plan Coag neg staph bacteremia, abx per ID, will f/u with ID rec Mild Anemia - Monitor H/H Continue DVT prophylaxis with heparin Encephalopathy - resolved Poly substance abuse - Drug rehab rec DC plan Subjective Allergies: Coded Allergies: PENICILLINS (Verified Allergy, Unknown, 07/05/16) Subjective Met pt at the nurses station, he was asking the RN when he's going to have the ultrasound done. He denies any discomfort at this time Objective Last 24 Hour Vital Signs Date Time Temp Pulse Resp B/P Pulse Ox O2 Delivery O2 Flow Rate FiO2 07/21/16 08:00 98.2 68 18 96/52 98 Room Air 07/21/16 04:00 97.9 62 20 95/52 100 Room Air 07/21/16 00:00 98.1 64 18 101/64 98 Room Air 07/20/16 19:00 98.2 71 20 114/64 98 Room Air 07/20/16 16:00 97.7 62 20 106/57 99 Room Air 07/20/16 12:00 97.9 67 18 102/55 100 Room Air Intake and Output 07/20/16 07/21/16 19:00 07:00 Intake Total 1620 ml 1020 ml Output Total 2 ml Balance 1620 ml 1018 ml Intake Oral 1270 ml 1020 ml IV Total 350 ml Output Urine Total 2 ml # Voids 4 2 # Bowel Movements 1 Height (Feet): 5 Height (Inches): 10.00 Weight (Pounds): 190 Ca Riggs N.P. Jul 21, 2016 11:27
[2016-07-21 11:47] VITALS: BP 102/56
--- NOTE | 2016-07-21 15:54 | Cardiac Electrophysiology PN ---
Assessment/Plan Assessment/Plan 1. Sinus tachycardia secondary to amphetamine use and sepsis. Echo normal EF. 2. Polysubstance abuse with amphetamine and opiate. 3. Leukopenia. 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 5. Coag negative staph sepsis , on daptomycin for 4 weeks course of therapy per Dr. Geller. 2D echo ruled out vegetations. Patient Refused MARJORIE. ROMULO RN Subjective Subjective Comfortable in NAD, on IV antibiotics.Off tele. Objective Last 24 Hour Vital Signs Date Time Temp Pulse Resp B/P Pulse Ox O2 Delivery O2 Flow Rate FiO2 07/21/16 11:47 98.2 73 18 102/56 99 Room Air 07/21/16 08:00 98.2 68 18 96/52 98 Room Air 07/21/16 04:00 97.9 62 20 95/52 100 Room Air 07/21/16 00:00 98.1 64 18 101/64 98 Room Air 07/20/16 19:00 98.2 71 20 114/64 98 Room Air 07/20/16 16:00 97.7 62 20 106/57 99 Room Air Intake and Output 07/20/16 07/21/16 19:00 07:00 Intake Total 1620 ml 1020 ml Output Total 2 ml Balance 1620 ml 1018 ml Intake Oral 1270 ml 1020 ml IV Total 350 ml Output Urine Total 2 ml # Voids 4 2 # Bowel Movements 1 Objective HEAD AND NECK: Showed no JVD. LUNGS: Clear. CARDIOVASCULAR: Regular S1 and S2. No gallop or murmur. ABDOMEN: Soft. EXTREMITIES: No pitting edema. SAILAJA MCPHERSON Jul 21, 2016 15:54
[2016-07-21 15:57] VITALS: BP 121/66
--- NOTE | 2016-07-21 17:07 | Infectious Diseases Prog Note ---
Assessment/Plan Problems: (1) Sepsis Assessment & Plan: with coag negative staph , and high crystal for vancomycin, in high risk patient who is actively injecting drugs and was septic on presentation , will continue daptomycin for 4 weeks course of therapy , echo ruled out vegetations, but need to rule out endocarditis since he is a high risk patient with active IVDU, but he refused MARJORIE, will treat for 4 weeks. EOT 07/30/16 (2) Amphetamine abuse Assessment & Plan: recommend counseling, screening for HIV, and Hepatitis are negative (3) VRE (vancomycin resistant enterococcus) culture positive Assessment & Plan: keep in contact isolation Subjective Constitutional: Reports: no symptoms HEENT: Reports: no symptoms Respiratory: Reports: no symptoms Breasts: Reports: no symptoms Cardiovascular: Reports: no symptoms Gastrointestinal/Abdominal: Reports: no symptoms Genitourinary: Reports: no symptoms Neurologic: Reports: no symptoms Psychiatric: Reports: no symptoms Skin: Reports: no symptoms Endocrine: Reports: no symptoms Allergies: Coded Allergies: PENICILLINS (Verified Allergy, Unknown, 07/05/16) Subjective he was doing well, alert and comfortable, denied any fever or chills, no cough or SOB. Objective Vital Signs Last 24 Hour Vital Signs Date Time Temp Pulse Resp B/P Pulse Ox O2 Delivery O2 Flow Rate FiO2 07/21/16 15:57 97.9 83 14 121/66 99 Room Air 07/21/16 11:47 98.2 73 18 102/56 99 Room Air 07/21/16 08:00 98.2 68 18 96/52 98 Room Air 07/21/16 04:00 97.9 62 20 95/52 100 Room Air 07/21/16 00:00 98.1 64 18 101/64 98 Room Air 07/20/16 19:00 98.2 71 20 114/64 98 Room Air Height (Feet): 5 Height (Inches): 10.00 Weight (Pounds): 190 General Appearance: WD/WN, no acute distress HEENT: normocephalic, atraumatic, anicteric, mucous membranes moist Respiratory/Chest: chest wall non-tender, lungs clear, normal breath sounds, no respiratory distress, no accessory muscle use Cardiovascular: normal peripheral pulses, normal rate, regular rhythm, no gallop/murmur Abdomen: normal bowel sounds, soft, non tender, no organomegaly, non distended , no mass, no scars Extremities: no cyanosis, no clubbing Skin: no rash, no lesions, no ulcers Current Medications Medications (Trade) Dose Ordered Sig/Elizabeth Route PRN Reason Start Time Stop Time Status Last Admin Dose Admin Acetaminophen (Tylenol) 500 mg Q4H PRN ORAL Mild Pain/Temp > 100.5 07/06/16 22:45 08/05/16 22:44 Daptomycin/Sodium Chloride (Cubicin/Sodium Chloride 50ml bag) 50 ml @ 100 mls/hr Q24H IV 07/20/16 16:00 08/06/16 23:59 07/20/16 17:04 Guaifenesin/ Dextromethorphan 10 ml 10 ml Q4H PRN ORAL For Cough 07/06/16 22:45 08/05/16 22:44 Heparin Sodium (Porcine) (Heparin 5000 units/ml) 5,000 units EVERY 8 HOURS SUBQ 07/05/16 22:00 08/04/16 21:59 07/21/16 05:32 Ernst Geller M.D. Jul 21, 2016 17:07
[2016-07-21] MEDS: DAPTOmycin 700 MG in NS 50 ML IV SCH (17:23)
[2016-07-21 20:00] VITALS: BP 120/73
[2016-07-22] VITALS: BP 111/68
[2016-07-22 04:00] VITALS: BP 103/54
[2016-07-22] MEDS: Heparin 5000 units/ml inj SUBQ SCH ×3 (06:00→21:56)
[2016-07-22 08:05] VITALS: BP 101/52
[2016-07-22 11:41] VITALS: BP 110/50
--- NOTE | 2016-07-22 12:04 | Nephrology Progress Note ---
Assessment/Plan Problem List: (1) Fever Assessment: resolved. (2) Amphetamine abuse (3) Opiate overdose (4) VRE (vancomycin resistant enterococcus) culture positive (5) Sepsis (6) Acute encephalopathy Assessment: 2/2 heroin and amphetamine use (7) Abnormal liver enzymes (8) Acute kidney injury (nontraumatic) Assessment: better/ (9) Bacteremia Assessment: CoNS Plan Cardio following. ID following. d/c held d/t +bcx. cont abx per ID. back on dapto. needs to continue iv abx til 07/30. Subjective Subjective no new c/o. no fever. Objective Objective Last 24 Hour Vital Signs Date Time Temp Pulse Resp B/P Pulse Ox O2 Delivery O2 Flow Rate FiO2 07/22/16 11:41 98.4 60 21 110/50 97 Room Air 07/22/16 08:05 98.2 69 20 101/52 95 Room Air 07/22/16 04:00 97.9 65 18 103/54 95 Room Air 07/22/16 00:00 97.0 68 18 111/68 96 Room Air 07/21/16 20:00 97.3 67 20 120/73 98 Room Air 07/21/16 15:57 97.9 83 14 121/66 99 Room Air Intake and Output 07/21/16 07/22/16 19:00 07:00 Intake Total 770 ml 360 ml Balance 770 ml 360 ml Intake Oral 720 ml 360 ml IV Total 50 ml # Voids 4 5 # Bowel Movements 1 Height (Feet): 5 Height (Inches): 10.00 Weight (Pounds): 190 General Appearance: no apparent distress Cardiovascular: normal rate, regular rhythm Respiratory/Chest: lungs clear Abdomen: non tender, soft ABBEY VALENTINE Jul 22, 2016 12:04
[2016-07-22 16:00] VITALS: BP 105/60
--- NOTE | 2016-07-22 16:28 | General Progress Note ---
Assessment/Plan Assessment/Plan Assessment: # Thrombocytosis - likely 2/2 reactive process # Anemia 2/2 chronic disease - has improved # Leukopenia - likely med related, improved # Narcotic overdose, heroin use # Encephalopathy - more alert # Transaminitis # Sinus tachycardia Recommendations: - Monitor counts - Imaging of abdomen to be reviewed - Medications reviewed - Followup cards, ID, renal recs - Consider psych eval - Drug rehab as an outpatient - DVT ppx with heparin sq - DW Staff Sincerely, Elijah Montes MD Subjective Constitutional: Reports: no symptoms HEENT: Reports: no symptoms Cardiovascular: Reports: no symptoms Respiratory: Reports: no symptoms Gastrointestinal/Abdominal: Reports: no symptoms Genitourinary: Reports: no symptoms Neurologic/Psychiatric: Reports: anxiety Endocrine: Reports: no symptoms Hematologic/Lymphatic: Reports: no symptoms Allergies: Coded Allergies: PENICILLINS (Verified Allergy, Unknown, 07/05/16) Subjective stable, no events, alert, not bleeding Objective Last 24 Hour Vital Signs Date Time Temp Pulse Resp B/P Pulse Ox O2 Delivery O2 Flow Rate FiO2 07/22/16 16:00 98.1 62 18 105/60 98 Room Air 07/22/16 11:41 98.4 60 21 110/50 97 Room Air 07/22/16 08:05 98.2 69 20 101/52 95 Room Air 07/22/16 04:00 97.9 65 18 103/54 95 Room Air 07/22/16 00:00 97.0 68 18 111/68 96 Room Air 07/21/16 20:00 97.3 67 20 120/73 98 Room Air Intake and Output 07/21/16 07/22/16 19:00 07:00 Intake Total 770 ml 360 ml Balance 770 ml 360 ml Intake Oral 720 ml 360 ml IV Total 50 ml # Voids 4 5 # Bowel Movements 1 Height (Feet): 5 Height (Inches): 10.00 Weight (Pounds): 190 General Appearance: alert EENT: pharynx normal Neck: non-tender Cardiovascular: normal rate Respiratory/Chest: lungs clear Abdomen: non tender Extremities: non-tender Edema: no edema noted Leg (L), no edema noted Leg (R) Edema: mild edema Neurologic: alert Skin: warm/dry Elijah Montes Jul 22, 2016 16:28
[2016-07-22] MEDS: DAPTOmycin 700 MG in NS 50 ML IV SCH (16:43)
--- NOTE | 2016-07-22 16:47 | Infectious Diseases Prog Note ---
Assessment/Plan Problems: (1) Sepsis Assessment & Plan: with coag negative staph , with high crystal for vancomycin, in high risk patient who is actively injecting drugs and was septic on presentation , will continue daptomycin for 4 weeks course of therapy , echo ruled out vegetations, but need to rule out endocarditis since he is a high risk patient with active IVDU, unfortunately he refused MARJORIE, will treat for 4 weeks total with daptomycin . EOT 07/30/16 (2) Amphetamine abuse Assessment & Plan: recommend counseling, screening for HIV, and Hepatitis are negative (3) VRE (vancomycin resistant enterococcus) culture positive Assessment & Plan: keep in contact isolation Subjective Constitutional: Reports: no symptoms HEENT: Reports: no symptoms Respiratory: Reports: no symptoms Breasts: Reports: no symptoms Cardiovascular: Reports: no symptoms Gastrointestinal/Abdominal: Reports: no symptoms Genitourinary: Reports: no symptoms Neurologic: Reports: no symptoms Psychiatric: Reports: no symptoms Skin: Reports: no symptoms Endocrine: Reports: no symptoms Hematologic: Reports: no symptoms Allergies: Coded Allergies: PENICILLINS (Verified Allergy, Unknown, 07/05/16) Subjective he was doing well, alert and comfortable, denied any fever or chills, no cough or SOB. Objective Vital Signs Last 24 Hour Vital Signs Date Time Temp Pulse Resp B/P Pulse Ox O2 Delivery O2 Flow Rate FiO2 07/22/16 16:00 98.1 62 18 105/60 98 Room Air 07/22/16 11:41 98.4 60 21 110/50 97 Room Air 07/22/16 08:05 98.2 69 20 101/52 95 Room Air 07/22/16 04:00 97.9 65 18 103/54 95 Room Air 07/22/16 00:00 97.0 68 18 111/68 96 Room Air 07/21/16 20:00 97.3 67 20 120/73 98 Room Air Height (Feet): 5 Height (Inches): 10.00 Weight (Pounds): 190 General Appearance: WD/WN, no acute distress HEENT: normocephalic, atraumatic, anicteric, mucous membranes moist Respiratory/Chest: chest wall non-tender, lungs clear, normal breath sounds, no respiratory distress, no accessory muscle use Cardiovascular: normal peripheral pulses, normal rate, regular rhythm, no gallop/murmur Abdomen: normal bowel sounds, soft, non tender, no organomegaly, non distended , no mass Extremities: no cyanosis, no clubbing Skin: no rash, no lesions, no ulcers Current Medications Medications (Trade) Dose Ordered Sig/Elizabeth Route PRN Reason Start Time Stop Time Status Last Admin Dose Admin Acetaminophen (Tylenol) 500 mg Q4H PRN ORAL Mild Pain/Temp > 100.5 07/06/16 22:45 08/05/16 22:44 Daptomycin/Sodium Chloride (Cubicin/Sodium Chloride 50ml bag) 50 ml @ 100 mls/hr Q24H IV 07/20/16 16:00 08/06/16 23:59 07/21/16 17:23 Guaifenesin/ Dextromethorphan 10 ml 10 ml Q4H PRN ORAL For Cough 07/06/16 22:45 08/05/16 22:44 Heparin Sodium (Porcine) (Heparin 5000 units/ml) 5,000 units EVERY 8 HOURS SUBQ 07/05/16 22:00 08/04/16 21:59 07/21/16 05:32 Ernst Geller M.D. Jul 22, 2016 16:47
--- NOTE | 2016-07-22 18:06 | Cardiac Electrophysiology PN ---
Assessment/Plan Assessment/Plan 1. Sinus tachycardia due to amphetamine use and sepsis. Echo normal EF. 2. Polysubstance abuse with amphetamine and opiate. 3. Leukopenia. 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 5. Coag negative staph sepsis , on daptomycin for 4 weeks course of therapy per Dr. Geller. 2D echo ruled out vegetations. Patient Refused MARJORIE. Cant get PICC line in view of IVDU DW RN Subjective Subjective Comfortable in NAD, on IV antibiotics.No change overnight. Objective Last 24 Hour Vital Signs Date Time Temp Pulse Resp B/P Pulse Ox O2 Delivery O2 Flow Rate FiO2 07/22/16 16:00 98.1 62 18 105/60 98 Room Air 07/22/16 11:41 98.4 60 21 110/50 97 Room Air 07/22/16 08:05 98.2 69 20 101/52 95 Room Air 07/22/16 04:00 97.9 65 18 103/54 95 Room Air 07/22/16 00:00 97.0 68 18 111/68 96 Room Air 07/21/16 20:00 97.3 67 20 120/73 98 Room Air Intake and Output 07/21/16 07/22/16 19:00 07:00 Intake Total 770 ml 360 ml Balance 770 ml 360 ml Intake Oral 720 ml 360 ml IV Total 50 ml # Voids 4 5 # Bowel Movements 1 Objective HEAD AND NECK: Showed no JVD. LUNGS: Clear. CARDIOVASCULAR: Regular S1 and S2. No gallop or murmur. ABDOMEN: Soft. EXTREMITIES: No pitting edema. SAILAJA MCPHERSON Jul 22, 2016 18:06
[2016-07-22 18:23] LABS: EOSINOPHILS % (AUTO) 6.7 % (0.0-3.0); LYMPHOCYTES % (AUTO) 41.3 % (20.0-45.0); MEAN CORPUSCULAR HEMOGLOBIN 30.1 PG (27.0-31.0); MEAN CORPUSCULAR HGB CONC 32.9 G/DL (32.0-36.0); MEAN CORPUSCULAR VOLUME 92 FL (80-99); MONOCYTES % (AUTO) 4.8 % (1.0-10.0); NEUTROPHILS % (AUTO) 45.2 % (45.0-75.0); PLATELET COUNT 375 K/UL (150-450); RED BLOOD COUNT 4.88 M/UL (4.70-6.10); WHITE BLOOD COUNT 6.8 K/UL (4.8-10.8)
[2016-07-22 19:54] VITALS: BP 108/77
[2016-07-22] MEDS ORDERED: Tubing IV Secondary IV ONE (22:35)
[2016-07-22] MEDS ORDERED: NS 275ml ONE (22:35)
[2016-07-23] VITALS (8 sets, daily range): BP systolic 100–124; BP diastolic 55–82
[2016-07-23] MEDS: Heparin 5000 units/ml inj SUBQ SCH ×3 (06:00→22:00)
--- NOTE | 2016-07-23 09:24 | Cardiac Electrophysiology PN ---
Assessment/Plan Assessment/Plan 1. Sinus tachycardia due to amphetamine use and sepsis. Resolved. Echo normal EF. 2. Coag negative staph sepsis , on IV daptomycin for [address] Geller. 2D echo ruled out vegetations. Patient Refused MARJORIE. Can't get PICC line in view of IVDU 3. Polysubstance abuse with amphetamine and opiate. 4. Leukopenia. 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 DW RN Subjective Subjective Comfortable in NAD, on IV antibiotics.RN at bedside. No events. Objective Last 24 Hour Vital Signs Date Time Temp Pulse Resp B/P Pulse Ox O2 Delivery O2 Flow Rate FiO2 07/23/16 04:00 97.9 64 18 106/56 97 Room Air 07/23/16 00:00 98.1 63 18 100/55 96 Room Air 07/22/16 19:54 98.1 18 108/77 07/22/16 16:00 98.1 62 18 105/60 98 Room Air 07/22/16 11:41 98.4 60 21 110/50 97 Room Air Intake and Output 07/22/16 07/23/16 19:00 07:00 Intake Total 1010 ml 800 ml Balance 1010 ml 800 ml Intake Oral 960 ml 800 ml IV Total 50 ml # Voids 2 4 # Bowel Movements 2 Laboratory Tests Test 07/22/16 18:00 White Blood Count 6.8 K/UL (4.8-10.8) Red Blood Count 4.88 M/UL (4.70-6.10) Hemoglobin 14.7 G/DL (14.2-18.0) Hematocrit 44.6 % (42.0-52.0) Mean Corpuscular Volume 92 FL (80-99) Mean Corpuscular Hemoglobin 30.1 PG (27.0-31.0) Mean Corpuscular Hemoglobin Concent 32.9 G/DL (32.0-36.0) Red Cell Distribution Width 12.0 % (11.6-14.8) Platelet Count 375 K/UL (150-450) Mean Platelet Volume 6.0 FL (6.5-10.1) L Neutrophils (%) (Auto) 45.2 % (45.0-75.0) Lymphocytes (%) (Auto) 41.3 % (20.0-45.0) Monocytes (%) (Auto) 4.8 % (1.0-10.0) Eosinophils (%) (Auto) 6.7 % (0.0-3.0) H Basophils (%) (Auto) 2.0 % (0.0-2.0) Current Medications Medications (Trade) Dose Ordered Sig/Elizabeth Route PRN Reason Start Time Stop Time Status Last Admin Dose Admin Acetaminophen (Tylenol) 500 mg Q4H PRN ORAL Mild Pain/Temp > 100.5 07/06/16 22:45 08/05/16 22:44 Daptomycin/Sodium Chloride (Cubicin/Sodium Chloride 50ml bag) 50 ml @ 100 mls/hr Q24H IV 07/20/16 16:00 08/06/16 23:59 07/22/16 16:43 Guaifenesin/ Dextromethorphan 10 ml 10 ml Q4H PRN ORAL For Cough 07/06/16 22:45 08/05/16 22:44 Heparin Sodium (Porcine) (Heparin 5000 units/ml) 5,000 units EVERY 8 HOURS SUBQ 07/05/16 22:00 08/04/16 21:59 07/23/16 06:00 Objective HEAD AND NECK: Showed no JVD. LUNGS: Clear. CARDIOVASCULAR: Regular S1 and S2. No gallop or murmur. ABDOMEN: Soft. EXTREMITIES: No pitting edema. SAILAJA MCPHERSON Jul 23, 2016 09:24
--- NOTE | 2016-07-23 16:44 | Infectious Diseases Prog Note ---
Assessment/Plan Problems: (1) Sepsis Assessment & Plan: with coag negative staph , with high crystal for vancomycin, in high risk patient who is actively injecting drugs and was septic on presentation , will continue daptomycin for 4 weeks course of therapy , echo ruled out vegetations, but need to rule out endocarditis since he is a high risk patient with active IVDU, unfortunately he refused MARJORIE, will treat for 4 weeks total with daptomycin . EOT 07/30/16 (2) Amphetamine abuse Assessment & Plan: recommend counseling, screening for HIV, and Hepatitis are negative (3) VRE (vancomycin resistant enterococcus) culture positive Assessment & Plan: keep in contact isolation Subjective Constitutional: Reports: no symptoms HEENT: Reports: no symptoms Respiratory: Reports: no symptoms Breasts: Reports: no symptoms Cardiovascular: Reports: no symptoms Gastrointestinal/Abdominal: Reports: no symptoms Genitourinary: Reports: no symptoms Neurologic: Reports: no symptoms Psychiatric: Reports: no symptoms Skin: Reports: no symptoms Endocrine: Reports: no symptoms Hematologic: Reports: no symptoms Allergies: Coded Allergies: PENICILLINS (Verified Allergy, Unknown, 07/05/16) Subjective he was doing well, alert and comfortable, denied any fever or chills, no cough or SOB. Objective Vital Signs Last 24 Hour Vital Signs Date Time Temp Pulse Resp B/P Pulse Ox O2 Delivery O2 Flow Rate FiO2 07/23/16 13:25 98.1 69 18 118/64 94 07/23/16 12:20 97.8 18 124/82 97 07/23/16 08:15 98.7 18 114/77 94 07/23/16 07:45 98.9 64 20 120/66 97 Room Air 07/23/16 04:00 97.9 64 18 106/56 97 Room Air 07/23/16 00:00 98.1 63 18 100/55 96 Room Air 07/22/16 19:54 98.1 18 108/77 Height (Feet): 5 Height (Inches): 10.00 Weight (Pounds): 190 General Appearance: WD/WN, no acute distress HEENT: normocephalic, atraumatic, anicteric Respiratory/Chest: chest wall non-tender, lungs clear, normal breath sounds, no respiratory distress, no accessory muscle use Cardiovascular: normal peripheral pulses, normal rate, regular rhythm, no gallop/murmur Abdomen: normal bowel sounds, soft, non tender, no organomegaly, non distended , no mass Extremities: no cyanosis, no clubbing Skin: no rash, no lesions, no ulcers Laboratory Tests Test 07/22/16 18:00 White Blood Count 6.8 K/UL (4.8-10.8) Red Blood Count 4.88 M/UL (4.70-6.10) Hemoglobin 14.7 G/DL (14.2-18.0) Hematocrit 44.6 % (42.0-52.0) Mean Corpuscular Volume 92 FL (80-99) Mean Corpuscular Hemoglobin 30.1 PG (27.0-31.0) Mean Corpuscular Hemoglobin Concent 32.9 G/DL (32.0-36.0) Red Cell Distribution Width 12.0 % (11.6-14.8) Platelet Count 375 K/UL (150-450) Mean Platelet Volume 6.0 FL (6.5-10.1) L Neutrophils (%) (Auto) 45.2 % (45.0-75.0) Lymphocytes (%) (Auto) 41.3 % (20.0-45.0) Monocytes (%) (Auto) 4.8 % (1.0-10.0) Eosinophils (%) (Auto) 6.7 % (0.0-3.0) H Basophils (%) (Auto) 2.0 % (0.0-2.0) Current Medications Medications (Trade) Dose Ordered Sig/Elizabeth Route PRN Reason Start Time Stop Time Status Last Admin Dose Admin Acetaminophen (Tylenol) 500 mg Q4H PRN ORAL Mild Pain/Temp > 100.5 07/06/16 22:45 08/05/16 22:44 Daptomycin/Sodium Chloride (Cubicin/Sodium Chloride 50ml bag) 50 ml @ 100 mls/hr Q24H IV 07/20/16 16:00 08/06/16 23:59 07/22/16 16:43 Guaifenesin/ Dextromethorphan 10 ml 10 ml Q4H PRN ORAL For Cough 07/06/16 22:45 08/05/16 22:44 Heparin Sodium (Porcine) (Heparin 5000 units/ml) 5,000 units EVERY 8 HOURS SUBQ 07/05/16 22:00 08/04/16 21:59 07/23/16 15:14 Ernst Geller M.D. Jul 23, 2016 16:44
[2016-07-23] MEDS: DAPTOmycin 700 MG in NS 50 ML IV SCH (17:04)
--- NOTE | 2016-07-23 19:18 | General Progress Note ---
Assessment/Plan Assessment/Plan Assessment: # Thrombocytosis - likely 2/2 reactive process, better # Anemia 2/2 chronic disease - has improved # Leukopenia - likely med related, improved # Narcotic overdose, heroin use # Encephalopathy - more alert # Transaminitis # Sinus tachycardia Recommendations: - Monitor counts - Imaging of abdomen to be reviewed - Medications reviewed - Followup cards, ID, renal recs - Consider psych eval - Drug rehab as an outpatient - DVT ppx with heparin sq - Staff Sincerely, Elijah Montes MD Subjective Constitutional: Reports: no symptoms HEENT: Reports: no symptoms Cardiovascular: Reports: no symptoms Respiratory: Reports: no symptoms Gastrointestinal/Abdominal: Reports: poor appetite Genitourinary: Reports: no symptoms Neurologic/Psychiatric: Reports: no symptoms Endocrine: Reports: no symptoms Hematologic/Lymphatic: Reports: anemia Allergies: Coded Allergies: PENICILLINS (Verified Allergy, Unknown, 07/05/16) Subjective stable, no events, alert, is not bleeding Objective Last 24 Hour Vital Signs Date Time Temp Pulse Resp B/P Pulse Ox O2 Delivery O2 Flow Rate FiO2 07/23/16 16:00 98.1 58 18 102/57 98 Room Air 07/23/16 13:25 98.1 69 18 118/64 94 07/23/16 12:20 97.8 18 124/82 97 07/23/16 08:15 98.7 18 114/77 94 07/23/16 07:45 98.9 64 20 120/66 97 Room Air 07/23/16 04:00 97.9 64 18 106/56 97 Room Air 07/23/16 00:00 98.1 63 18 100/55 96 Room Air 07/22/16 19:54 98.1 18 108/77 Intake and Output 07/22/16 07/23/16 19:00 07:00 Intake Total 1010 ml 800 ml Balance 1010 ml 800 ml Intake Oral 960 ml 800 ml IV Total 50 ml # Voids 2 4 # Bowel Movements 2 Height (Feet): 5 Height (Inches): 10.00 Weight (Pounds): 190 General Appearance: alert EENT: TMs normal Neck: normal alignment Cardiovascular: regular rhythm Respiratory/Chest: lungs clear Abdomen: non tender Extremities: non-tender Edema: no edema noted Leg (L), no edema noted Leg (R) Edema: mild edema Neurologic: alert Skin: warm/dry Kleynberg,Elijah L. Jul 23, 2016 19:18
[2016-07-24] VITALS: BP 113/60
[2016-07-24 04:00] VITALS: BP 100/55
[2016-07-24] MEDS: Heparin 5000 units/ml inj SUBQ SCH ×3 (06:29→21:56)
[2016-07-24 08:00] VITALS: BP 105/70
--- NOTE | 2016-07-24 09:44 | General Progress Note ---
Assessment/Plan Assessment/Plan Assessment: # Thrombocytosis - likely 2/2 reactive process, better # Anemia 2/2 chronic disease - has improved # Leukopenia - likely med related, improved # Narcotic overdose, heroin use # Encephalopathy - more alert # Transaminitis # Sinus tachycardia Recommendations: - Monitor counts - Imaging of abdomen to be reviewed - Medications have been reviewed - Followup cards, ID, renal recs - Consider psych eval - Drug rehab as an outpatient - DVT ppx with heparin sq - DW Staff Sincerely, Yaima Montes MD Subjective Constitutional: Reports: no symptoms HEENT: Reports: no symptoms Cardiovascular: Reports: no symptoms Respiratory: Reports: no symptoms Gastrointestinal/Abdominal: Reports: poor appetite Genitourinary: Reports: no symptoms Neurologic/Psychiatric: Reports: no symptoms Endocrine: Reports: no symptoms Hematologic/Lymphatic: Reports: anemia Allergies: Coded Allergies: PENICILLINS (Verified Allergy, Unknown, 07/05/16) Subjective stable, no events, not bleeding Objective Last 24 Hour Vital Signs Date Time Temp Pulse Resp B/P Pulse Ox O2 Delivery O2 Flow Rate FiO2 07/24/16 04:00 97.9 66 18 100/55 96 Room Air 07/24/16 00:00 98.1 68 18 113/60 97 Room Air 07/23/16 19:00 98.1 59 20 104/63 97 Room Air 07/23/16 16:00 98.1 58 18 102/57 98 Room Air 07/23/16 13:25 98.1 69 18 118/64 94 07/23/16 12:20 97.8 18 124/82 97 Intake and Output 07/23/16 07/24/16 19:00 07:00 Intake Total 1150 ml 480 ml Balance 1150 ml 480 ml Intake Oral 1100 ml 480 ml IV Total 50 ml # Voids 3 7 Height (Feet): 5 Height (Inches): 10.00 Weight (Pounds): 190 General Appearance: no apparent distress EENT: TMs normal Neck: supple Cardiovascular: regular rhythm Respiratory/Chest: normal breath sounds Abdomen: non tender Extremities: non-tender Edema: 1+ Leg (L), 1+ Leg (R) Edema: mild edema Neurologic: alert Skin: warm/dry YAIMA MONTES Jul 24, 2016 09:44
--- NOTE | 2016-07-24 09:53 | Nephrology Progress Note ---
Assessment/Plan Problem List: (1) Bacteremia (2) Sepsis (3) VRE (vancomycin resistant enterococcus) culture positive (4) Acute encephalopathy (5) Abnormal liver enzymes (6) Acute kidney injury (nontraumatic) (7) Opiate overdose (8) Amphetamine abuse (9) Fever Plan cont abx per ID rec. cont abx til 07/30. Subjective Subjective no acute events. Objective Objective Last 24 Hour Vital Signs Date Time Temp Pulse Resp B/P Pulse Ox O2 Delivery O2 Flow Rate FiO2 07/24/16 04:00 97.9 66 18 100/55 96 Room Air 07/24/16 00:00 98.1 68 18 113/60 97 Room Air 07/23/16 19:00 98.1 59 20 104/63 97 Room Air 07/23/16 16:00 98.1 58 18 102/57 98 Room Air 07/23/16 13:25 98.1 69 18 118/64 94 07/23/16 12:20 97.8 18 124/82 97 Intake and Output 07/23/16 07/24/16 19:00 07:00 Intake Total 1150 ml 480 ml Balance 1150 ml 480 ml Intake Oral 1100 ml 480 ml IV Total 50 ml # Voids 3 7 Height (Feet): 5 Height (Inches): 10.00 Weight (Pounds): 190 General Appearance: WD/WN, no apparent distress Respiratory/Chest: lungs clear Abdomen: non tender, soft MINAL HAGER Jul 24, 2016 09:53
[2016-07-24 12:00] VITALS: BP 110/72
--- NOTE | 2016-07-24 12:07 | Progress Note 2 Sig ---
DATE: 07/23/2016 NEPHROLOGY PROGRESS NOTE SUBJECTIVE: The patient is seen in the Med/Surg unit in no distress. Denies discomfort at this time. Stated that he is only waiting to be discharged. He stated that the anticipated discharge day is 07/27/2016. MEDICATIONS: Daptomycin IV, Tylenol, Robitussin, and heparin. OBJECTIVE: VITAL SIGNS: Blood pressure 102/57, heart rate is 58, temperature is 98.1, O2 saturation is 98% on room air, and respiration is 18. HEAD AND NECK: Normocephalic and atraumatic. NECK: Supple. Trachea midline. LUNGS: Clear bilaterally. CARDIOVASCULAR: Regular rate and rhythm. ABDOMEN: Soft and nontender. EXTREMITIES: No edema, no cyanosis and no clubbing. LABORATORY DATA: CBC shows white count 6.8, hemoglobin 14.4, hematocrit 44.6, and platelet count of 375,000. BNP, sodium is 139, potassium 4.2, chloride 97, bicarbonate is 24, BUN is 13, creatinine is 0.8 and glucose is 91. ASSESSMENT: 1. Polysubstance abuse. 2. Acute encephalopathy. 3. Sepsis. PLAN: Plan is to continue antibiotics per ID and follow ID recommendation. Continue DVT prophylaxis. The patient's mental status is stable at this time. Discharging planning is to a drug rehab. Vance Kirk M.D. Ca Riggs DR: JOSE ANTONIO JOB#: [id number] CC:
--- NOTE | 2016-07-24 13:13 | Cardiac Electrophysiology PN ---
Assessment/Plan Assessment/Plan 1. Sinus tachycardia due to amphetamine use and sepsis. Resolved. Echo normal EF. 2. Coag negative staph sepsis , on IV daptomycin for total [address] Geller. 2D echo no vegetations. Patient Refused MARJORIE. Can't get PICC line in view of DU 3. Polysubstance abuse with amphetamine and opiate. 4. Leukopenia. 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 ROMULO RN Subjective Subjective Comfortable in NAD. Wants to go home.No events overnight. Objective Last 24 Hour Vital Signs Date Time Temp Pulse Resp B/P Pulse Ox O2 Delivery O2 Flow Rate FiO2 07/24/16 04:00 97.9 66 18 100/55 96 Room Air 07/24/16 00:00 98.1 68 18 113/60 97 Room Air 07/23/16 19:00 98.1 59 20 104/63 97 Room Air 07/23/16 16:00 98.1 58 18 102/57 98 Room Air 07/23/16 13:25 98.1 69 18 118/64 94 Intake and Output 07/23/16 07/24/16 19:00 07:00 Intake Total 1150 ml 480 ml Balance 1150 ml 480 ml Intake Oral 1100 ml 480 ml IV Total 50 ml # Voids 3 7 Objective HEAD AND NECK: Showed no JVD. LUNGS: Clear. CARDIOVASCULAR: Regular S1 and S2. No gallop or murmur. ABDOMEN: Soft. EXTREMITIES: No pitting edema. SAILAJA MCPHERSON Jul 24, 2016 13:13
--- NOTE | 2016-07-24 15:12 | Infectious Diseases Prog Note ---
Assessment/Plan Problems: (1) Sepsis Assessment & Plan: with coag negative staph , with high crystal for vancomycin, in high risk patient who is actively injecting drugs and was septic on presentation , will continue daptomycin for 4 weeks course of therapy , echo ruled out vegetations, but need to rule out endocarditis since he is a high risk patient with active IVDU, unfortunately he refused MARJORIE, will treat for 4 weeks total with daptomycin . EOT 07/30/16 (2) Amphetamine abuse Assessment & Plan: recommend counseling, screening for HIV, and Hepatitis are negative (3) VRE (vancomycin resistant enterococcus) culture positive Assessment & Plan: keep in contact isolation Subjective Constitutional: Reports: no symptoms HEENT: Reports: no symptoms Respiratory: Reports: no symptoms Breasts: Reports: no symptoms Cardiovascular: Reports: no symptoms Gastrointestinal/Abdominal: Reports: no symptoms Genitourinary: Reports: no symptoms Neurologic: Reports: no symptoms Psychiatric: Reports: no symptoms Skin: Reports: no symptoms Endocrine: Reports: no symptoms Allergies: Coded Allergies: PENICILLINS (Verified Allergy, Unknown, 07/05/16) Subjective he was doing well, alert and comfortable, denied any fever or chills, no cough or SOB. Objective Vital Signs Last 24 Hour Vital Signs Date Time Temp Pulse Resp B/P Pulse Ox O2 Delivery O2 Flow Rate FiO2 07/24/16 12:00 98.1 72 16 110/72 96 Room Air 2.0 28 07/24/16 08:00 98.4 67 16 105/70 96 Room Air 2.0 28 07/24/16 04:00 97.9 66 18 100/55 96 Room Air 07/24/16 00:00 98.1 68 18 113/60 97 Room Air 07/23/16 19:00 98.1 59 20 104/63 97 Room Air 07/23/16 16:00 98.1 58 18 102/57 98 Room Air Height (Feet): 5 Height (Inches): 10.00 Weight (Pounds): 190 General Appearance: WD/WN, no acute distress HEENT: normocephalic, atraumatic, anicteric Respiratory/Chest: chest wall non-tender, lungs clear, normal breath sounds, no respiratory distress, no accessory muscle use Cardiovascular: normal peripheral pulses, normal rate, regular rhythm, no gallop/murmur Abdomen: normal bowel sounds, soft, non tender, no organomegaly, non distended Extremities: no cyanosis, no clubbing Skin: no rash, no lesions, no ulcers Current Medications Medications (Trade) Dose Ordered Sig/Elizabeth Route PRN Reason Start Time Stop Time Status Last Admin Dose Admin Acetaminophen (Tylenol) 500 mg Q4H PRN ORAL Mild Pain/Temp > 100.5 07/06/16 22:45 08/05/16 22:44 Daptomycin/Sodium Chloride (Cubicin/Sodium Chloride 50ml bag) 50 ml @ 100 mls/hr Q24H IV 07/20/16 16:00 08/06/16 23:59 07/23/16 17:04 Guaifenesin/ Dextromethorphan 10 ml 10 ml Q4H PRN ORAL For Cough 07/06/16 22:45 08/05/16 22:44 Heparin Sodium (Porcine) (Heparin 5000 units/ml) 5,000 units EVERY 8 HOURS SUBQ 07/05/16 22:00 08/04/16 21:59 07/24/16 14:58 Ernst Geller M.D. Jul 24, 2016 15:12
[2016-07-24 16:00] VITALS: BP 115/65
[2016-07-24] MEDS: DAPTOmycin 700 MG in NS 50 ML IV SCH (16:41)
[2016-07-24 20:00] VITALS: BP 113/59
[2016-07-25 04:00] VITALS: BP 106/56
[2016-07-25] MEDS: Heparin 5000 units/ml inj SUBQ SCH ×3 (05:05→22:17)
--- NOTE | 2016-07-25 06:46 | General Progress Note ---
Assessment/Plan Assessment/Plan Assessment: # Thrombocytosis - likely 2/2 reactive process, better # Anemia 2/2 chronic disease - has improved # Leukopenia - likely med related, has improved # Narcotic overdose, heroin use # Encephalopathy - more alert # Transaminitis # Sinus tachycardia Recommendations: - Monitor counts - Imaging of abdomen to be reviewed - Medications have been reviewed - Followup cards, ID, renal recs - Consider psych eval - Drug rehab as an outpatient - DVT ppx with heparin sq - DW Staff Sincerely, Yaima Montes MD Subjective Constitutional: Reports: no symptoms HEENT: Reports: no symptoms Cardiovascular: Reports: no symptoms Respiratory: Reports: no symptoms Gastrointestinal/Abdominal: Reports: poor appetite Genitourinary: Reports: no symptoms Neurologic/Psychiatric: Reports: no symptoms Endocrine: Reports: no symptoms Hematologic/Lymphatic: Reports: anemia Allergies: Coded Allergies: PENICILLINS (Verified Allergy, Unknown, 07/05/16) Subjective stable, not bleeding Objective Last 24 Hour Vital Signs Date Time Temp Pulse Resp B/P Pulse Ox O2 Delivery O2 Flow Rate FiO2 07/25/16 04:00 98.2 18 106/56 96 Room Air 07/24/16 20:00 98.4 62 20 113/59 95 Room Air 07/24/16 16:00 97.7 73 20 115/65 97 Room Air 07/24/16 12:00 98.1 72 16 110/72 96 Room Air 2.0 28 07/24/16 08:00 98.4 67 16 105/70 96 Room Air 2.0 28 Intake and Output 07/24/16 07/25/16 19:00 07:00 Intake Total 850 ml 540 ml Output Total 6 ml Balance 850 ml 534 ml Intake Oral 800 ml 540 ml IV Total 50 ml Output Urine Total 6 ml # Voids 2 Height (Feet): 5 Height (Inches): 10.00 Weight (Pounds): 190 General Appearance: no apparent distress EENT: TMs normal Neck: supple Cardiovascular: regular rhythm Respiratory/Chest: normal breath sounds Abdomen: non tender Extremities: normal range of motion Edema: no edema noted Leg (L), no edema noted Leg (R) Edema: mild edema Neurologic: alert Skin: warm/dry YAIMA MONTES Jul 25, 2016 06:46
[2016-07-25 07:51] VITALS: BP 109/59
--- NOTE | 2016-07-25 10:30 | Diagnostic Imaging Report ---
Indication:Abdominal pain Technique: Grayscale and duplex Doppler imaging of the abdomen performed. Comparison: None Findings: The liver, demonstrated part of the pancreas, gallbladder, aorta and IVC, both kidneys, spleen appear unremarkable. There is no biliary ductal dilatation identified. CBD is 6.3 mm. Doppler evaluation of the main portal vein shows patency. There is no ascites. No hydronephrosis seen. Portions of anatomy are obscured by bowel gas. Impression: Negative abdominal ultrasound.
[2016-07-25 11:50] VITALS: BP 107/60
--- NOTE | 2016-07-25 13:49 | Cardiac Electrophysiology PN ---
Assessment/Plan Assessment/Plan 1. Sinus tachycardia due to amphetamine use and sepsis. Resolved.Normal EF. 2. Coag negative staph sepsis , on IV daptomycin. Patient Refused MARJORIE. Can't get PICC line in view of DU. 3. Polysubstance abuse with amphetamine and opiate. 4. Leukopenia. 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 ROMULO RN and Astrid Morgan Subjective Subjective Comfortable in NAD with no chest pain or SOB.. Objective Last 24 Hour Vital Signs Date Time Temp Pulse Resp B/P Pulse Ox O2 Delivery O2 Flow Rate FiO2 07/25/16 11:50 97.7 80 14 107/60 99 Room Air 07/25/16 07:51 98.2 70 18 109/59 98 Room Air 07/25/16 04:00 98.2 18 106/56 96 Room Air 07/24/16 20:00 98.4 62 20 113/59 95 Room Air 07/24/16 16:00 97.7 73 20 115/65 97 Room Air Intake and Output 07/24/16 07/25/16 19:00 07:00 Intake Total 850 ml 540 ml Output Total 6 ml Balance 850 ml 534 ml Intake Oral 800 ml 540 ml IV Total 50 ml Output Urine Total 6 ml # Voids 2 Current Medications Medications (Trade) Dose Ordered Sig/Elizabeth Route PRN Reason Start Time Stop Time Status Last Admin Dose Admin Acetaminophen (Tylenol) 500 mg Q4H PRN ORAL Mild Pain/Temp > 100.5 07/06/16 22:45 08/05/16 22:44 Daptomycin/Sodium Chloride (Cubicin/Sodium Chloride 50ml bag) 50 ml @ 100 mls/hr Q24H IV 07/20/16 16:00 08/06/16 23:59 07/24/16 16:41 Guaifenesin/ Dextromethorphan 10 ml 10 ml Q4H PRN ORAL For Cough 07/06/16 22:45 08/05/16 22:44 Heparin Sodium (Porcine) (Heparin 5000 units/ml) 5,000 units EVERY 8 HOURS SUBQ 07/05/16 22:00 08/04/16 21:59 07/24/16 21:56 Objective HEAD AND NECK: Showed no JVD. LUNGS: Clear. CARDIOVASCULAR: Regular S1 and S2. No gallop or murmur. ABDOMEN: Soft. EXTREMITIES: No pitting edema. SAILAJA MCPHERSON Jul 25, 2016 13:49
--- NOTE | 2016-07-25 13:53 | Nephrology Progress Note ---
Assessment/Plan Problem List: (1) Bacteremia (2) Sepsis (3) VRE (vancomycin resistant enterococcus) culture positive (4) Acute encephalopathy (5) Abnormal liver enzymes (6) Acute kidney injury (nontraumatic) (7) Opiate overdose (8) Amphetamine abuse (9) Fever Plan cont abx per ID rec. cont abx til 07/30. will d/w ID for possible po abx for d/c planning. Subjective Subjective wants to go home. no new c/o. no fever. Objective Objective Last 24 Hour Vital Signs Date Time Temp Pulse Resp B/P Pulse Ox O2 Delivery O2 Flow Rate FiO2 07/25/16 11:50 97.7 80 14 107/60 99 Room Air 07/25/16 07:51 98.2 70 18 109/59 98 Room Air 07/25/16 04:00 98.2 18 106/56 96 Room Air 07/24/16 20:00 98.4 62 20 113/59 95 Room Air 07/24/16 16:00 97.7 73 20 115/65 97 Room Air Intake and Output 07/24/16 07/25/16 19:00 07:00 Intake Total 850 ml 540 ml Output Total 6 ml Balance 850 ml 534 ml Intake Oral 800 ml 540 ml IV Total 50 ml Output Urine Total 6 ml # Voids 2 Height (Feet): 5 Height (Inches): 10.00 Weight (Pounds): 190 General Appearance: no apparent distress Cardiovascular: normal rate, regular rhythm Respiratory/Chest: lungs clear Abdomen: non tender, soft MINAL HAGER Jul 25, 2016 13:53
[2016-07-25 16:00] VITALS: BP 129/65
[2016-07-25] MEDS: DAPTOmycin 700 MG in NS 50 ML IV SCH (16:20)
--- NOTE | 2016-07-25 18:11 | Infectious Diseases Prog Note ---
Assessment/Plan Problems: (1) Sepsis Assessment & Plan: with coag negative staph , with high crystal for vancomycin, in high risk patient who is actively injecting drugs and was septic on presentation , will continue daptomycin for 4 weeks course of therapy , echo ruled out vegetations, but need to rule out endocarditis since he is a high risk patient with active IVDU, unfortunately he refused MARJORIE, will treat for 4 weeks total with daptomycin . EOT 07/30/16 (2) Amphetamine abuse Assessment & Plan: recommend counseling, screening for HIV, and Hepatitis are negative (3) VRE (vancomycin resistant enterococcus) culture positive Assessment & Plan: keep in contact isolation Subjective Constitutional: Reports: no symptoms HEENT: Reports: no symptoms Respiratory: Reports: no symptoms Breasts: Reports: no symptoms Cardiovascular: Reports: no symptoms Gastrointestinal/Abdominal: Reports: no symptoms Genitourinary: Reports: no symptoms Neurologic: Reports: no symptoms Psychiatric: Reports: no symptoms Skin: Reports: no symptoms Allergies: Coded Allergies: PENICILLINS (Verified Allergy, Unknown, 07/05/16) Subjective he was doing well, alert and comfortable, denied any fever or chills, no cough or SOB. Objective Vital Signs Last 24 Hour Vital Signs Date Time Temp Pulse Resp B/P Pulse Ox O2 Delivery O2 Flow Rate FiO2 07/25/16 16:00 97.3 70 20 129/65 99 Room Air 07/25/16 11:50 97.7 80 14 107/60 99 Room Air 07/25/16 07:51 98.2 70 18 109/59 98 Room Air 07/25/16 04:00 98.2 18 106/56 96 Room Air 07/24/16 20:00 98.4 62 20 113/59 95 Room Air Height (Feet): 5 Height (Inches): 10.00 Weight (Pounds): 190 General Appearance: WD/WN, no acute distress HEENT: normocephalic, atraumatic, anicteric, mucous membranes moist, PERRL Respiratory/Chest: chest wall non-tender, lungs clear, normal breath sounds, no respiratory distress, no accessory muscle use Cardiovascular: normal peripheral pulses, normal rate, regular rhythm, no gallop/murmur Abdomen: normal bowel sounds, soft, non tender, no organomegaly, non distended , no mass Extremities: no cyanosis, no clubbing Skin: no rash, no lesions, no ulcers Current Medications Medications (Trade) Dose Ordered Sig/Elizabeth Route PRN Reason Start Time Stop Time Status Last Admin Dose Admin Acetaminophen (Tylenol) 500 mg Q4H PRN ORAL Mild Pain/Temp > 100.5 07/06/16 22:45 08/05/16 22:44 Daptomycin/Sodium Chloride (Cubicin/Sodium Chloride 50ml bag) 50 ml @ 100 mls/hr Q24H IV 07/20/16 16:00 08/06/16 23:59 07/25/16 16:20 Guaifenesin/ Dextromethorphan 10 ml 10 ml Q4H PRN ORAL For Cough 07/06/16 22:45 08/05/16 22:44 Heparin Sodium (Porcine) (Heparin 5000 units/ml) 5,000 units EVERY 8 HOURS SUBQ 07/05/16 22:00 08/04/16 21:59 07/24/16 21:56 Ernst Geller M.D. Jul 25, 2016 18:11
[2016-07-25 20:00] VITALS: BP 137/82
[2016-07-26] VITALS: BP 112/63
[2016-07-26 04:00] VITALS: BP 114/65
[2016-07-26] MEDS: Heparin 5000 units/ml inj SUBQ SCH ×3 (06:00→21:14)
[2016-07-26 08:36] VITALS: BP 114/64
[2016-07-26 11:37] VITALS: BP 100/57
--- NOTE | 2016-07-26 12:23 | General Progress Note ---
Assessment/Plan Assessment/Plan Assessment: # Thrombocytosis - likely 2/2 reactive process, better # Anemia 2/2 chronic disease - has improved # Leukopenia - likely med related, has improved # Narcotic overdose, heroin use # Encephalopathy - more alert # Transaminitis # Sinus tachycardia Recommendations: - Monitor counts - Imaging of abdomen to be reviewed - Medications have been reviewed - Followup cards, ID, renal recs - Consider psych eval - Drug rehab as an outpatient - DVT ppx with heparin sq - DW Staff Sincerely, Elijah Montes MD Subjective Constitutional: Reports: no symptoms HEENT: Reports: no symptoms Cardiovascular: Reports: no symptoms Respiratory: Reports: no symptoms Gastrointestinal/Abdominal: Reports: poor appetite Genitourinary: Reports: no symptoms Neurologic/Psychiatric: Reports: no symptoms Endocrine: Reports: no symptoms Hematologic/Lymphatic: Reports: anemia Allergies: Coded Allergies: PENICILLINS (Verified Allergy, Unknown, 07/05/16) Subjective stable, no events, alert, not bleeding Objective Last 24 Hour Vital Signs Date Time Temp Pulse Resp B/P Pulse Ox O2 Delivery O2 Flow Rate FiO2 07/26/16 11:37 98.6 64 19 100/57 97 Room Air 07/26/16 08:36 98.2 60 18 114/64 97 Room Air 07/26/16 04:00 97.8 80 18 114/65 97 Room Air 07/26/16 00:00 97.8 82 18 112/63 96 Room Air 07/25/16 20:00 97.7 59 20 137/82 98 Room Air 07/25/16 16:00 97.3 70 20 129/65 99 Room Air Intake and Output 07/25/16 07/26/16 19:00 07:00 Intake Total 1550 ml 600 ml Balance 1550 ml 600 ml Intake Oral 1500 ml 600 ml IV Total 50 ml # Voids 3 3 # Bowel Movements 1 Height (Feet): 5 Height (Inches): 10.00 Weight (Pounds): 190 General Appearance: no apparent distress EENT: TMs normal Neck: supple Cardiovascular: regular rhythm Respiratory/Chest: normal breath sounds Abdomen: non tender Extremities: non-tender Edema: 1+ Leg (L), 1+ Leg (R) Edema: mild edema Neurologic: alert Skin: warm/dry Elijah Montes Jul 26, 2016 12:22
--- NOTE | 2016-07-26 15:06 | General Progress Note ---
Assessment/Plan Problem List: (1) Amphetamine abuse ICD Codes: F15.10 - Other stimulant abuse, uncomplicated SNOMED: 57241705 (2) Opiate overdose ICD Codes: T40.601A - Poisoning by unspecified narcotics, accidental ( unintentional), initial encounter SNOMED: 096508061 Qualifiers: Qualified Codes: T40.601A - Poisoning by unspecified narcotics, accidental ( unintentional), initial encounter (3) Acute encephalopathy ICD Codes: G93.40 - Encephalopathy, unspecified SNOMED: 1149785 (4) VRE (vancomycin resistant enterococcus) culture positive ICD Codes: Z22.39 - Carrier of other specified bacterial diseases SNOMED: 048342430 Assessment/Plan Coag neg staph bacteremia, abx per ID, will f/u with ID rec Mild Anemia - Monitor H/H Continue DVT prophylaxis with heparin Encephalopathy - resolved Poly substance abuse - Drug rehab rec DC plan Subjective Constitutional: Denies: chills, diaphoresis, fever, malaise, no symptoms, other , weakness HEENT: Denies: blurred vision, double vision, ear discharge, ear pain, eye pain , mouth pain, mouth swelling, no symptoms, nose congestion, nose pain, other, tearing, throat pain, throat swelling Cardiovascular: Denies: chest pain, edema, irregular heart rate, lightheadedness, no symptoms, other, palpitations, syncope Respiratory: Denies: SOB at rest, SOB with excertion, cough, no symptoms, orthopnea, other, shortness of breath, sputum, stridor, wheezing Gastrointestinal/Abdominal: Denies: abdomen distended, abdominal pain, black stools, blood in stool, constipated, diarrhea, difficulty swallowing, nausea, no symptoms, other, poor appetite, poor fluid intake, rectal bleeding, tarry stools, vomiting Genitourinary: Denies: burning, discharge, flank pain, frequency, hematuria, incontinence, no symptoms, other, pain, urgency Neurologic/Psychiatric: Denies: anxiety, depressed, emotional problems, headache, no symptoms, numbness, other, paresthesia, pre-existing deficit, seizure, tingling, tremors, weakness Endocrine: Denies: excessive sweating, flushing, increased hunger, increased thirst, increased urine, intolerance to cold, intolerance to heat, no symptoms, other, unexplained weight gain, unexplained weight loss Hematologic/Lymphatic: Denies: anemia, easy bleeding, easy bruising, no symptoms, other Allergies: Coded Allergies: PENICILLINS (Verified Allergy, Unknown, 07/05/16) Subjective no distress Objective Last 24 Hour Vital Signs Date Time Temp Pulse Resp B/P Pulse Ox O2 Delivery O2 Flow Rate FiO2 07/26/16 11:37 98.6 64 19 100/57 97 Room Air 07/26/16 08:36 98.2 60 18 114/64 97 Room Air 07/26/16 04:00 97.8 80 18 114/65 97 Room Air 07/26/16 00:00 97.8 82 18 112/63 96 Room Air 07/25/16 20:00 97.7 59 20 137/82 98 Room Air 07/25/16 16:00 97.3 70 20 129/65 99 Room Air Intake and Output 07/25/16 07/26/16 19:00 07:00 Intake Total 1550 ml 600 ml Balance 1550 ml 600 ml Intake Oral 1500 ml 600 ml IV Total 50 ml # Voids 3 3 # Bowel Movements 1 Height (Feet): 5 Height (Inches): 10.00 Weight (Pounds): 190 General Appearance: no apparent distress, alert Neck: non-tender, normal alignment Cardiovascular: normal rate, regular rhythm Respiratory/Chest: lungs clear, normal breath sounds Abdomen: normal bowel sounds, non tender Pelvis: normal external exam Extremities: normal range of motion, non-tender, normal inspection Neurologic: alert, oriented x 3, responsive, normal mood/affect Skin: normal pigmentation, warm/dry Ca Riggs N.P. Jul 26, 2016 15:05
[2016-07-26 16:00] VITALS: BP 104/61
[2016-07-26] MEDS: DAPTOmycin 700 MG in NS 50 ML IV SCH ×2 (16:00→19:10)
--- NOTE | 2016-07-26 17:16 | Infectious Diseases Prog Note ---
Assessment/Plan Problems: (1) Sepsis Assessment & Plan: with coag negative staph , with high crystal for vancomycin, in high risk patient who is actively injecting drugs and was septic on presentation , would continue daptomycin for 4 weeks , echo ruled out vegetations, but need to rule out endocarditis since he is a high risk patient with active IVDU, unfortunately he refused MARJORIE, will treat for 4 weeks total with daptomycin . EOT 07/30/16 (2) Amphetamine abuse Assessment & Plan: recommend counseling, screening for HIV, and Hepatitis are negative (3) VRE (vancomycin resistant enterococcus) culture positive Assessment & Plan: keep in contact isolation Subjective Constitutional: Reports: no symptoms HEENT: Reports: no symptoms Respiratory: Reports: no symptoms Breasts: Reports: no symptoms Cardiovascular: Reports: no symptoms Gastrointestinal/Abdominal: Reports: no symptoms Genitourinary: Reports: no symptoms Neurologic: Reports: no symptoms Psychiatric: Reports: no symptoms Skin: Reports: no symptoms Endocrine: Reports: no symptoms Allergies: Coded Allergies: PENICILLINS (Verified Allergy, Unknown, 07/05/16) Subjective he was doing well, alert and comfortable, denied any fever or chills, no cough or SOB. Objective Vital Signs Last 24 Hour Vital Signs Date Time Temp Pulse Resp B/P Pulse Ox O2 Delivery O2 Flow Rate FiO2 07/26/16 11:37 98.6 64 19 100/57 97 Room Air 07/26/16 08:36 98.2 60 18 114/64 97 Room Air 07/26/16 04:00 97.8 80 18 114/65 97 Room Air 07/26/16 00:00 97.8 82 18 112/63 96 Room Air 07/25/16 20:00 97.7 59 20 137/82 98 Room Air Height (Feet): 5 Height (Inches): 10.00 Weight (Pounds): 190 General Appearance: WD/WN, no acute distress HEENT: normocephalic, atraumatic, anicteric, mucous membranes moist Respiratory/Chest: chest wall non-tender, lungs clear, normal breath sounds, no respiratory distress, no accessory muscle use Cardiovascular: normal peripheral pulses, normal rate, regular rhythm, regularly irregular, no gallop/murmur Abdomen: normal bowel sounds, soft, non tender, no organomegaly, non distended , no mass Extremities: no cyanosis, no clubbing Skin: no rash, no lesions, no ulcers Current Medications Medications (Trade) Dose Ordered Sig/Elizabeth Route PRN Reason Start Time Stop Time Status Last Admin Dose Admin Acetaminophen (Tylenol) 500 mg Q4H PRN ORAL Mild Pain/Temp > 100.5 07/06/16 22:45 08/05/16 22:44 Daptomycin/Sodium Chloride (Cubicin/Sodium Chloride 50ml bag) 50 ml @ 100 mls/hr Q24H IV 07/20/16 16:00 08/06/16 23:59 07/25/16 16:20 Guaifenesin/ Dextromethorphan 10 ml 10 ml Q4H PRN ORAL For Cough 07/06/16 22:45 08/05/16 22:44 Heparin Sodium (Porcine) (Heparin 5000 units/ml) 5,000 units EVERY 8 HOURS SUBQ 07/05/16 22:00 08/04/16 21:59 07/25/16 22:17 Ernst Geller M.D. Jul 26, 2016 17:16
[2016-07-26 20:00] VITALS: BP 103/54
[2016-07-27] VITALS: BP 98/55
[2016-07-27 04:00] VITALS: BP 102/56
[2016-07-27] MEDS: Heparin 5000 units/ml inj SUBQ SCH ×3 (06:00→20:03)
[2016-07-27 08:00] VITALS: BP 103/58
[2016-07-27 12:00] VITALS: BP_SYST 100; BP_SYST 103; BP_DIAS 58; BP_DIAS 66
--- NOTE | 2016-07-27 12:13 | Nephrology Progress Note ---
Assessment/Plan Problem List: (1) Fever Assessment: resolved. (2) Amphetamine abuse (3) Opiate overdose (4) VRE (vancomycin resistant enterococcus) culture positive (5) Sepsis (6) Acute encephalopathy Assessment: 2/2 heroin and amphetamine use (7) Abnormal liver enzymes (8) Acute kidney injury (nontraumatic) Assessment: better/ (9) Bacteremia Assessment: CoNS Plan Cardio following. ID following. cont abx per ID. back on dapto. needs to continue iv abx til 07/30. d/w ID to consider changing to po. Subjective Subjective anxious to go home. Objective Objective Last 24 Hour Vital Signs Date Time Temp Pulse Resp B/P Pulse Ox O2 Delivery O2 Flow Rate FiO2 07/27/16 08:00 98.0 69 20 103/58 99 Room Air 07/27/16 04:00 97.9 70 18 102/56 98 Room Air 07/27/16 00:00 98.1 71 18 98/55 97 Room Air 07/26/16 20:00 97.6 76 18 103/54 97 Room Air 07/26/16 16:00 98.5 66 18 104/61 97 Room Air Intake and Output 07/26/16 07/27/16 19:00 07:00 Intake Total 560 ml 1175 ml Balance 560 ml 1175 ml Intake Oral 560 ml 1175 ml # Voids 3 1 # Bowel Movements 1 Height (Feet): 5 Height (Inches): 10.00 Weight (Pounds): 190 General Appearance: no apparent distress Cardiovascular: normal rate, regular rhythm Respiratory/Chest: lungs clear Abdomen: non tender, soft ABBEY VALENTINE Jul 27, 2016 12:13
--- NOTE | 2016-07-27 14:55 | Nephrology Progress Note ---
Assessment/Plan Problem List: (1) Amphetamine abuse (2) Opiate overdose (3) Acute encephalopathy (4) VRE (vancomycin resistant enterococcus) culture positive Plan Coag neg staph bacteremia, abx per ID, will f/u with ID rec Mild Anemia - Monitor H/H Continue DVT prophylaxis with heparin Encephalopathy - resolved Poly substance abuse - Drug rehab outpt DC plan- home if cleared by ID Subjective Constitutional: Denies: chills, diaphoresis, fever, malaise, no symptoms, other , weakness HEENT: Denies: blurred vision, double vision, ear discharge, ear pain, eye pain , mouth pain, mouth swelling, no symptoms, nose congestion, nose pain, other, tearing, throat pain, throat swelling Genitourinary: Denies: burning, discharge, flank pain, frequency, hematuria, incontinence, no symptoms, other, pain, urgency Neurologic/Psychiatric: Denies: anxiety, depressed, emotional problems, headache, no symptoms, numbness, other, paresthesia, pre-existing deficit, seizure, tingling, tremors, weakness Subjective Denies discomfort, not in distress Objective Objective Last 24 Hour Vital Signs Date Time Temp Pulse Resp B/P Pulse Ox O2 Delivery O2 Flow Rate FiO2 07/27/16 12:00 98.0 69 22 103/58 99 Room Air 07/27/16 12:00 98.4 70 20 100/66 99 Room Air 07/27/16 08:00 98.0 69 20 103/58 99 Room Air 07/27/16 04:00 97.9 70 18 102/56 98 Room Air 07/27/16 00:00 98.1 71 18 98/55 97 Room Air 07/26/16 20:00 97.6 76 18 103/54 97 Room Air 07/26/16 16:00 98.5 66 18 104/61 97 Room Air Intake and Output 07/26/16 07/27/16 19:00 07:00 Intake Total 560 ml 1175 ml Balance 560 ml 1175 ml Intake Oral 560 ml 1175 ml # Voids 3 1 # Bowel Movements 1 Height (Feet): 5 Height (Inches): 10.00 Weight (Pounds): 190 General Appearance: no apparent distress, alert EENT: normal ENT inspection Neck: non-tender, normal alignment, supple, normal inspection Cardiovascular: normal rate, regular rhythm, no JVD Respiratory/Chest: lungs clear, normal breath sounds, no respiratory distress Abdomen: normal bowel sounds, non tender, soft Extremities: normal range of motion, non-tender Neurologic: alert, oriented x 3, responsive, normal mood/affect Ca Riggs N.P. Jul 27, 2016 14:55
[2016-07-27 16:00] VITALS: BP 108/62
--- NOTE | 2016-07-27 16:47 | General Progress Note ---
Assessment/Plan Assessment/Plan Assessment: # Thrombocytosis - likely 2/2 reactive process, improved # Anemia 2/2 chronic disease - has improved # Leukopenia - likely med related, has improved # Narcotic overdose, heroin use # Encephalopathy - more alert # Transaminitis # Sinus tachycardia Recommendations: - Monitor counts - Imaging of abdomen to be reviewed - Medications reviewed - Followup cards, ID, renal recs - Consider psych eval - Drug rehab as an outpatient - DVT ppx with heparin sq - DW Staff Sincerely, Elijah Montes MD Subjective Constitutional: Reports: no symptoms HEENT: Reports: no symptoms Cardiovascular: Reports: no symptoms Respiratory: Reports: no symptoms Gastrointestinal/Abdominal: Reports: no symptoms Genitourinary: Reports: no symptoms Neurologic/Psychiatric: Reports: no symptoms Endocrine: Reports: no symptoms Hematologic/Lymphatic: Reports: anemia Allergies: Coded Allergies: PENICILLINS (Verified Allergy, Unknown, 07/05/16) Subjective stable, no events,is not bleeding Objective Last 24 Hour Vital Signs Date Time Temp Pulse Resp B/P Pulse Ox O2 Delivery O2 Flow Rate FiO2 07/27/16 12:00 98.0 69 22 103/58 99 Room Air 07/27/16 12:00 98.4 70 20 100/66 99 Room Air 07/27/16 08:00 98.0 69 20 103/58 99 Room Air 07/27/16 04:00 97.9 70 18 102/56 98 Room Air 07/27/16 00:00 98.1 71 18 98/55 97 Room Air 07/26/16 20:00 97.6 76 18 103/54 97 Room Air Intake and Output 07/26/16 07/27/16 19:00 07:00 Intake Total 560 ml 1175 ml Balance 560 ml 1175 ml Intake Oral 560 ml 1175 ml # Voids 3 1 # Bowel Movements 1 Height (Feet): 5 Height (Inches): 10.00 Weight (Pounds): 190 General Appearance: no apparent distress EENT: TMs normal Neck: supple Cardiovascular: regular rhythm Respiratory/Chest: normal breath sounds Abdomen: no mass Extremities: normal inspection Edema: no edema noted Leg (L), no edema noted Leg (R) Edema: mild edema Neurologic: alert Skin: warm/dry Elijah Montes Jul 27, 2016 16:47
--- NOTE | 2016-07-27 18:07 | Infectious Diseases Prog Note ---
Assessment/Plan Problems: (1) Sepsis Assessment & Plan: with coag negative staph , and high crystal for vancomycin, in high risk patient who is actively injecting drugs and was septic on presentation , would continue daptomycin for 4 weeks , echo ruled out vegetations, but need to rule out endocarditis since he is a high risk patient with active IVDU, unfortunately he refused MARJORIE, will treat for 4 weeks total with daptomycin . EOT 07/30/16 (2) Amphetamine abuse Assessment & Plan: recommend counseling, screening for HIV, and Hepatitis are negative (3) VRE (vancomycin resistant enterococcus) culture positive Assessment & Plan: keep in contact isolation Subjective Constitutional: Reports: no symptoms HEENT: Reports: no symptoms Respiratory: Reports: no symptoms Breasts: Reports: no symptoms Cardiovascular: Reports: no symptoms Gastrointestinal/Abdominal: Reports: no symptoms Genitourinary: Reports: no symptoms Neurologic: Reports: no symptoms Psychiatric: Reports: no symptoms Skin: Reports: no symptoms Endocrine: Reports: no symptoms Hematologic: Reports: no symptoms Musculoskeletal: Reports: no symptoms Allergies: Coded Allergies: PENICILLINS (Verified Allergy, Unknown, 07/05/16) Subjective he was doing well, alert and comfortable, denied any fever or chills, no cough or SOB. Objective Vital Signs Last 24 Hour Vital Signs Date Time Temp Pulse Resp B/P Pulse Ox O2 Delivery O2 Flow Rate FiO2 07/27/16 12:00 98.0 69 22 103/58 99 Room Air 07/27/16 12:00 98.4 70 20 100/66 99 Room Air 07/27/16 08:00 98.0 69 20 103/58 99 Room Air 07/27/16 04:00 97.9 70 18 102/56 98 Room Air 07/27/16 00:00 98.1 71 18 98/55 97 Room Air 07/26/16 20:00 97.6 76 18 103/54 97 Room Air Height (Feet): 5 Height (Inches): 10.00 Weight (Pounds): 190 General Appearance: WD/WN, no acute distress HEENT: normocephalic, atraumatic, anicteric, mucous membranes moist, PERRL Respiratory/Chest: chest wall non-tender, lungs clear, normal breath sounds, no respiratory distress, no accessory muscle use Cardiovascular: normal peripheral pulses, normal rate, regular rhythm, no gallop/murmur Abdomen: normal bowel sounds, soft, non tender, no organomegaly, non distended , no mass Extremities: no cyanosis, no clubbing Skin: no rash, no lesions, no ulcers Current Medications Medications (Trade) Dose Ordered Sig/Elizabeth Route PRN Reason Start Time Stop Time Status Last Admin Dose Admin Acetaminophen (Tylenol) 500 mg Q4H PRN ORAL Mild Pain/Temp > 100.5 07/06/16 22:45 08/05/16 22:44 Daptomycin/Sodium Chloride (Cubicin/Sodium Chloride 50ml bag) 50 ml @ 100 mls/hr Q24H IV 07/26/16 18:00 08/06/16 17:59 07/26/16 19:10 Guaifenesin/ Dextromethorphan 10 ml 10 ml Q4H PRN ORAL For Cough 07/06/16 22:45 08/05/16 22:44 Heparin Sodium (Porcine) (Heparin 5000 units/ml) 5,000 units EVERY 8 HOURS SUBQ 07/05/16 22:00 08/04/16 21:59 07/27/16 14:35 Ernst Geller M.D. Jul 27, 2016 18:07
--- NOTE | 2016-07-27 18:27 | Cardiac Electrophysiology PN ---
Assessment/Plan Assessment/Plan 1. Sinus tachycardia due to amphetamine use and sepsis. Resolved.Normal EF. 2. Coag negative staph sepsis , on IV daptomycin. Patient Refused MARJORIE. No PICC line in view of DU. 3. Polysubstance abuse with amphetamine and opiate. 4. Leukopenia. 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 ROMULO RN DC planning Tuesday after last dose of Abx per ID Subjective Subjective Comfortable in NAD with no chest pain or SOB.Last dose of iv antibiotic would be next Tuesday per ID. Objective Last 24 Hour Vital Signs Date Time Temp Pulse Resp B/P Pulse Ox O2 Delivery O2 Flow Rate FiO2 07/27/16 12:00 98.0 69 22 103/58 99 Room Air 07/27/16 12:00 98.4 70 20 100/66 99 Room Air 07/27/16 08:00 98.0 69 20 103/58 99 Room Air 07/27/16 04:00 97.9 70 18 102/56 98 Room Air 07/27/16 00:00 98.1 71 18 98/55 97 Room Air 07/26/16 20:00 97.6 76 18 103/54 97 Room Air Intake and Output 07/26/16 07/27/16 19:00 07:00 Intake Total 560 ml 1175 ml Balance 560 ml 1175 ml Intake Oral 560 ml 1175 ml # Voids 3 1 # Bowel Movements 1 Objective HEAD AND NECK: Showed no JVD. LUNGS: Clear. CARDIOVASCULAR: Regular S1 and S2. No gallop or murmur. ABDOMEN: Soft. EXTREMITIES: No pitting edema. SAILAJA MCPHERSON Jul 27, 2016 18:27
[2016-07-27 19:00] VITALS: BP 105/60
[2016-07-27] MEDS: DAPTOmycin 700 MG in NS 50 ML IV SCH (20:02)
[2016-07-28] VITALS: BP 100/57
[2016-07-28 04:00] VITALS: BP 107/56
[2016-07-28] MEDS: Heparin 5000 units/ml inj SUBQ SCH ×3 (06:00→22:50)
[2016-07-28 08:00] VITALS: BP 99/61
--- NOTE | 2016-07-28 10:17 | Cardiac Electrophysiology PN ---
Assessment/Plan Assessment/Plan 1. Sinus tachycardia due to amphetamine use and sepsis. Resolved.Normal EF.Not hyperthyroid 2. Coag negative staph sepsis , on IV daptomycin. Patient Refused MARJORIE. No vegetation on TTE. 3. Polysubstance abuse with amphetamine and opiate. 4. Leukopenia. 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 ROMULO RN Subjective Subjective Comfortable in NAD with no chest pain or SOB.Last dose of iv antibiotic is next Tuesday.No events overnight. Objective Last 24 Hour Vital Signs Date Time Temp Pulse Resp B/P Pulse Ox O2 Delivery O2 Flow Rate FiO2 07/28/16 04:00 97.9 61 20 107/56 97 Room Air 07/28/16 00:00 98.1 59 18 100/57 98 Room Air 07/27/16 19:00 97.7 73 18 105/60 97 Room Air 07/27/16 16:00 98.1 76 20 108/62 96 Room Air 07/27/16 12:00 98.0 69 22 103/58 99 Room Air 07/27/16 12:00 98.4 70 20 100/66 99 Room Air Intake and Output 07/27/16 07/28/16 19:00 07:00 Intake Total 800 ml 730 ml Balance 800 ml 730 ml Intake Oral 800 ml 730 ml # Voids 1 7 # Bowel Movements 1 Current Medications Medications (Trade) Dose Ordered Sig/Elizabeth Route PRN Reason Start Time Stop Time Status Last Admin Dose Admin Acetaminophen (Tylenol) 500 mg Q4H PRN ORAL Mild Pain/Temp > 100.5 07/06/16 22:45 08/05/16 22:44 Daptomycin/Sodium Chloride (Cubicin/Sodium Chloride 50ml bag) 50 ml @ 100 mls/hr Q24H IV 07/26/16 18:00 08/06/16 17:59 07/27/16 20:02 Guaifenesin/ Dextromethorphan 10 ml 10 ml Q4H PRN ORAL For Cough 07/06/16 22:45 08/05/16 22:44 Heparin Sodium (Porcine) (Heparin 5000 units/ml) 5,000 units EVERY 8 HOURS SUBQ 07/05/16 22:00 08/04/16 21:59 07/27/16 20:03 Objective HEAD AND NECK: Showed no JVD. LUNGS: Clear. CARDIOVASCULAR: Regular S1 and S2. No gallop or murmur. ABDOMEN: Soft. EXTREMITIES: No pitting edema. SAILAJA MCPHERSON Jul 28, 2016 10:17
[2016-07-28 12:00] VITALS: BP 100/58
--- NOTE | 2016-07-28 12:23 | Nephrology Progress Note ---
Assessment/Plan Problem List: (1) Amphetamine abuse (2) Opiate overdose (3) Acute encephalopathy (4) VRE (vancomycin resistant enterococcus) culture positive (5) Sepsis (6) Drug abuse and dependence Plan Coag neg staph bacteremia, abx per ID, will f/u with ID rec Mild Anemia - Monitor H/H Continue DVT prophylaxis with heparin Encephalopathy - resolved Poly substance abuse - Drug rehab outpt DC plan- home if cleared by ID Subjective Constitutional: Denies: chills, diaphoresis, fever, malaise, no symptoms, other , weakness HEENT: Denies: blurred vision, double vision, ear discharge, ear pain, eye pain , mouth pain, mouth swelling, no symptoms, nose congestion, nose pain, other, tearing, throat pain, throat swelling Genitourinary: Denies: burning, discharge, flank pain, frequency, hematuria, incontinence, no symptoms, other, pain, urgency Neurologic/Psychiatric: Denies: anxiety, depressed, emotional problems, headache, no symptoms, numbness, other, paresthesia, pre-existing deficit, seizure, tingling, tremors, weakness Subjective Denies discomfort, not in distress Objective Objective Last 24 Hour Vital Signs Date Time Temp Pulse Resp B/P Pulse Ox O2 Delivery O2 Flow Rate FiO2 07/28/16 08:00 97.5 66 20 99/61 98 Room Air 07/28/16 04:00 97.9 61 20 107/56 97 Room Air 07/28/16 00:00 98.1 59 18 100/57 98 Room Air 07/27/16 19:00 97.7 73 18 105/60 97 Room Air 07/27/16 16:00 98.1 76 20 108/62 96 Room Air Intake and Output 07/27/16 07/28/16 19:00 07:00 Intake Total 800 ml 730 ml Balance 800 ml 730 ml Intake Oral 800 ml 730 ml # Voids 1 7 # Bowel Movements 1 Height (Feet): 5 Height (Inches): 10.00 Weight (Pounds): 190 General Appearance: alert EENT: normal ENT inspection Neck: normal alignment, supple, normal inspection Cardiovascular: normal rate, regular rhythm Respiratory/Chest: lungs clear, normal breath sounds, no respiratory distress Abdomen: soft, no organomegaly, no mass Extremities: normal range of motion, non-tender, normal inspection, no calf tenderness Neurologic: alert, oriented x 3, responsive, normal mood/affect Ca Riggs N.P. Jul 28, 2016 12:23
[2016-07-28 15:49] VITALS: BP 107/57
--- NOTE | 2016-07-28 16:46 | General Progress Note ---
Assessment/Plan Assessment/Plan Assessment: # Thrombocytosis - likely 2/2 reactive process, has improved # Anemia 2/2 chronic disease - has improved # Leukopenia - likely med related, has improved # Narcotic overdose, heroin use # Encephalopathy - more alert # Transaminitis # Sinus tachycardia Recommendations: - Monitor counts - Imaging of abdomen to be reviewed - Medications reviewed - Followup cards, ID, renal recs - Consider psych eval - Drug rehab as an outpatient - DVT ppx with heparin sq - DW Staff Sincerely, Elijah Montes MD Subjective Constitutional: Reports: no symptoms HEENT: Reports: no symptoms Cardiovascular: Reports: no symptoms Respiratory: Reports: no symptoms Gastrointestinal/Abdominal: Reports: poor appetite Genitourinary: Reports: no symptoms Neurologic/Psychiatric: Reports: no symptoms Endocrine: Reports: no symptoms Hematologic/Lymphatic: Reports: anemia Allergies: Coded Allergies: PENICILLINS (Verified Allergy, Unknown, 07/05/16) Subjective stable, no events,not bleeding Objective Last 24 Hour Vital Signs Date Time Temp Pulse Resp B/P Pulse Ox O2 Delivery O2 Flow Rate FiO2 07/28/16 15:49 97.7 79 20 107/57 99 Room Air 07/28/16 12:00 97.7 67 18 100/58 98 Room Air 07/28/16 08:00 97.5 66 20 99/61 98 Room Air 07/28/16 04:00 97.9 61 20 107/56 97 Room Air 07/28/16 00:00 98.1 59 18 100/57 98 Room Air 07/27/16 19:00 97.7 73 18 105/60 97 Room Air Intake and Output 07/27/16 07/28/16 19:00 07:00 Intake Total 800 ml 730 ml Balance 800 ml 730 ml Intake Oral 800 ml 730 ml # Voids 1 7 # Bowel Movements 1 Height (Feet): 5 Height (Inches): 10.00 Weight (Pounds): 190 General Appearance: no apparent distress EENT: normal ENT inspection Neck: non-tender Cardiovascular: regular rhythm Respiratory/Chest: normal breath sounds Abdomen: no organomegaly Genitourinary/Rectal: normal rectal exam Extremities: non-tender Edema: no edema noted Leg (L), no edema noted Leg (R) Edema: mild edema Neurologic: alert Elijah Montes Jul 28, 2016 16:46
--- NOTE | 2016-07-28 18:21 | Infectious Diseases Prog Note ---
Assessment/Plan Problems: (1) Sepsis Assessment & Plan: with coag negative staph , and high crystal for vancomycin, in high risk patient who is actively injecting drugs and was septic on presentation ,continue daptomycin for 4 weeks , echo ruled out vegetations, but need to rule out endocarditis since he is a high risk patient with active IVDU, unfortunately he refused MARJORIE, will treat for 4 weeks total with daptomycin . EOT 07/30/16 (2) Amphetamine abuse Assessment & Plan: recommend counseling, screening for HIV, and Hepatitis are negative (3) VRE (vancomycin resistant enterococcus) culture positive Assessment & Plan: keep in contact isolation Subjective Constitutional: Reports: no symptoms HEENT: Reports: no symptoms Respiratory: Reports: no symptoms Breasts: Reports: no symptoms Cardiovascular: Reports: no symptoms Gastrointestinal/Abdominal: Reports: no symptoms Genitourinary: Reports: no symptoms Neurologic: Reports: no symptoms Psychiatric: Reports: no symptoms Skin: Reports: no symptoms Allergies: Coded Allergies: PENICILLINS (Verified Allergy, Unknown, 07/05/16) Subjective he was doing well, alert and comfortable, denied any fever or chills, no cough or SOB. Objective Vital Signs Last 24 Hour Vital Signs Date Time Temp Pulse Resp B/P Pulse Ox O2 Delivery O2 Flow Rate FiO2 07/28/16 15:49 97.7 79 20 107/57 99 Room Air 07/28/16 12:00 97.7 67 18 100/58 98 Room Air 07/28/16 08:00 97.5 66 20 99/61 98 Room Air 07/28/16 04:00 97.9 61 20 107/56 97 Room Air 07/28/16 00:00 98.1 59 18 100/57 98 Room Air 07/27/16 19:00 97.7 73 18 105/60 97 Room Air Height (Feet): 5 Height (Inches): 10.00 Weight (Pounds): 190 General Appearance: WD/WN, no acute distress HEENT: normocephalic, atraumatic, anicteric, mucous membranes moist Respiratory/Chest: chest wall non-tender, lungs clear, normal breath sounds, no respiratory distress, no accessory muscle use Cardiovascular: normal peripheral pulses, normal rate, regular rhythm, regularly irregular Abdomen: normal bowel sounds, soft, non tender, no organomegaly, non distended , no mass Skin: no rash, no lesions Current Medications Medications (Trade) Dose Ordered Sig/Elizabeth Route PRN Reason Start Time Stop Time Status Last Admin Dose Admin Acetaminophen (Tylenol) 500 mg Q4H PRN ORAL Mild Pain/Temp > 100.5 07/06/16 22:45 08/05/16 22:44 Daptomycin/Sodium Chloride (Cubicin/Sodium Chloride 50ml bag) 50 ml @ 100 mls/hr Q24H IV 07/26/16 18:00 08/06/16 17:59 07/27/16 20:02 Guaifenesin/ Dextromethorphan 10 ml 10 ml Q4H PRN ORAL For Cough 07/06/16 22:45 08/05/16 22:44 Heparin Sodium (Porcine) (Heparin 5000 units/ml) 5,000 units EVERY 8 HOURS SUBQ 07/05/16 22:00 08/04/16 21:59 07/28/16 14:00 Ernst Geller M.D. Jul 28, 2016 18:21
[2016-07-28] MEDS: DAPTOmycin 700 MG in NS 50 ML IV SCH (21:14)
[2016-07-29] VITALS: BP 99/57
[2016-07-29 04:00] VITALS: BP 105/57
[2016-07-29] MEDS: Heparin 5000 units/ml inj SUBQ SCH ×2 (06:00→14:00)
[2016-07-29 08:00] VITALS: BP 104/58
[2016-07-29 12:00] VITALS: BP 96/55
[2016-07-29] MEDS ORDERED: DAPTOmycin 700 MG in NS 50 ML IV SCH (15:45)
[2016-07-29] MEDS ORDERED: NS IV SCH (15:45)
[2016-07-29] MEDS ORDERED: DAPTOMYCIN IV SCH (15:45)
[2016-07-29 16:00] VITALS: BP 112/74
--- NOTE | 2016-07-29 17:06 | General Progress Note ---
Assessment/Plan Assessment/Plan Assessment: # Thrombocytosis - likely 2/2 reactive process, has improved # Anemia 2/2 chronic disease - has also improved # Leukopenia - likely med related, has improved # Narcotic overdose, heroin use # Encephalopathy - more alert # Transaminitis # Sinus tachycardia Recommendations: - Monitor counts - Imaging of abdomen to be reviewed - Medications reviewed - Followup cards, ID, renal recs - Consider psych eval - Drug rehab as an outpatient - DVT ppx with heparin sq - DW Staff Sincerely, Elijah Montes MD Subjective Constitutional: Reports: no symptoms HEENT: Reports: no symptoms Cardiovascular: Reports: no symptoms Respiratory: Reports: no symptoms Gastrointestinal/Abdominal: Reports: no symptoms Genitourinary: Reports: no symptoms Neurologic/Psychiatric: Reports: no symptoms Endocrine: Reports: no symptoms Hematologic/Lymphatic: Reports: anemia Allergies: Coded Allergies: PENICILLINS (Verified Allergy, Unknown, 07/05/16) Subjective stable, no events, is not bleeding Objective Last 24 Hour Vital Signs Date Time Temp Pulse Resp B/P Pulse Ox O2 Delivery O2 Flow Rate FiO2 07/29/16 12:00 97.3 59 20 96/55 97 Room Air 07/29/16 08:00 97.7 85 20 104/58 96 Room Air 07/29/16 04:00 98.1 67 18 105/57 96 Room Air 07/29/16 00:00 98.1 58 18 99/57 97 Room Air 07/28/16 19:00 98.6 66 20 98 Room Air Intake and Output 07/28/16 07/29/16 19:00 07:00 Intake Total 500 ml 540 ml Balance 500 ml 540 ml Intake Oral 500 ml 540 ml # Voids 7 # Bowel Movements 1 Height (Feet): 5 Height (Inches): 10.00 Weight (Pounds): 190 General Appearance: alert EENT: TMs normal Neck: normal inspection Cardiovascular: regular rhythm Respiratory/Chest: normal breath sounds Abdomen: soft Extremities: non-tender Edema: no edema noted Leg (L), no edema noted Leg (R) Edema: mild edema Neurologic: alert Skin: warm/dry Elijah Montes Jul 29, 2016 17:06
--- NOTE | 2016-07-29 17:07 | Infectious Diseases Prog Note ---
Assessment/Plan Problems: (1) Sepsis Assessment & Plan: with coag negative staph , and high crystal for vancomycin, in high risk patient who is actively injecting drugs and was septic on presentation ,continue daptomycin for 4 weeks , echo ruled out vegetations, but need to rule out endocarditis since he is a high risk patient with active IVDU, unfortunately he refused MARJORIE, will treat for 4 weeks total with daptomycin . EOT 07/30/16 (2) Amphetamine abuse Assessment & Plan: recommend counseling, screening for HIV, and Hepatitis are negative (3) VRE (vancomycin resistant enterococcus) culture positive Assessment & Plan: keep in contact isolation Subjective Allergies: Coded Allergies: PENICILLINS (Verified Allergy, Unknown, 07/05/16) All Systems: reviewed and negative except above Subjective he was doing well, alert and comfortable, denied any fever or chills, no cough or SOB. Objective Vital Signs Last 24 Hour Vital Signs Date Time Temp Pulse Resp B/P Pulse Ox O2 Delivery O2 Flow Rate FiO2 07/29/16 12:00 97.3 59 20 96/55 97 Room Air 07/29/16 08:00 97.7 85 20 104/58 96 Room Air 07/29/16 04:00 98.1 67 18 105/57 96 Room Air 07/29/16 00:00 98.1 58 18 99/57 97 Room Air 07/28/16 19:00 98.6 66 20 98 Room Air Height (Feet): 5 Height (Inches): 10.00 Weight (Pounds): 190 General Appearance: WD/WN, no acute distress HEENT: normocephalic, atraumatic, anicteric, mucous membranes moist, PERRL Respiratory/Chest: chest wall non-tender, lungs clear, normal breath sounds, no respiratory distress, no accessory muscle use, respiratory distress Cardiovascular: normal peripheral pulses, normal rate, regular rhythm, no gallop/murmur, no JVD Abdomen: normal bowel sounds, soft, non tender, no organomegaly, non distended , no mass, no scars Extremities: no cyanosis, no clubbing Skin: no rash, no lesions Current Medications Medications (Trade) Dose Ordered Sig/Elizabeth Route PRN Reason Start Time Stop Time Status Last Admin Dose Admin Acetaminophen (Tylenol) 500 mg Q4H PRN ORAL Mild Pain/Temp > 100.5 07/06/16 22:45 08/05/16 22:44 Daptomycin/Sodium Chloride (Cubicin/Sodium Chloride 100ml bag) 110 ml @ 220 mls/hr Q24H IV 07/29/16 15:45 08/05/16 15:44 07/29/16 16:25 Guaifenesin/ Dextromethorphan 10 ml 10 ml Q4H PRN ORAL For Cough 07/06/16 22:45 08/05/16 22:44 Heparin Sodium (Porcine) (Heparin 5000 units/ml) 5,000 units EVERY 8 HOURS SUBQ 07/05/16 22:00 08/04/16 21:59 07/28/16 22:50 Ernst Geller M.D. Jul 29, 2016 17:07
--- NOTE | 2016-07-29 18:29 | Cardiac Electrophysiology PN ---
Assessment/Plan Assessment/Plan 1. Sinus tachycardia due to amphetamine use and sepsis. Resolved.Normal EF 2. Coag negative staph sepsis , on IV daptomycin. Patient Refused MARJORIE. No vegetation on TTE. 3. Polysubstance abuse with amphetamine and opiate. 4. Leukopenia. 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 DC today Subjective Subjective Comfortable in NAD with no chest pain or SOB.DC planning today Objective Last 24 Hour Vital Signs Date Time Temp Pulse Resp B/P Pulse Ox O2 Delivery O2 Flow Rate FiO2 07/29/16 16:00 96.6 69 20 112/74 97 Room Air 07/29/16 12:00 97.3 59 20 96/55 97 Room Air 07/29/16 08:00 97.7 85 20 104/58 96 Room Air 07/29/16 04:00 98.1 67 18 105/57 96 Room Air 07/29/16 00:00 98.1 58 18 99/57 97 Room Air 07/28/16 19:00 98.6 66 20 98 Room Air Intake and Output 07/28/16 07/29/16 19:00 07:00 Intake Total 500 ml 540 ml Balance 500 ml 540 ml Intake Oral 500 ml 540 ml # Voids 7 # Bowel Movements 1 Current Medications Medications (Trade) Dose Ordered Sig/Elizabeth Route PRN Reason Start Time Stop Time Status Last Admin Dose Admin Acetaminophen (Tylenol) 500 mg Q4H PRN ORAL Mild Pain/Temp > 100.5 07/06/16 22:45 08/05/16 22:44 Daptomycin/Sodium Chloride (Cubicin/Sodium Chloride 100ml bag) 110 ml @ 220 mls/hr Q24H IV 07/29/16 15:45 08/05/16 15:44 07/29/16 16:25 Guaifenesin/ Dextromethorphan 10 ml 10 ml Q4H PRN ORAL For Cough 07/06/16 22:45 08/05/16 22:44 Heparin Sodium (Porcine) (Heparin 5000 units/ml) 5,000 units EVERY 8 HOURS SUBQ 07/05/16 22:00 08/04/16 21:59 07/28/16 22:50 Objective HEAD AND NECK: Showed no JVD. LUNGS: Clear. CARDIOVASCULAR: Regular S1 and S2. No gallop or murmur. ABDOMEN: Soft. EXTREMITIES: No pitting edema. SAILAJA MCPHERSON Jul 29, 2016 18:29
[2016-07-29] MEDS ORDERED: Tubing IV Secondary IV ONE (18:59)
--- NOTE | 2016-07-30 08:46 | Nephrology Progress Note ---
Assessment/Plan Problem List: (1) Fever Assessment: resolved. (2) Amphetamine abuse (3) Opiate overdose (4) VRE (vancomycin resistant enterococcus) culture positive (5) Sepsis (6) Acute encephalopathy Assessment: 2/2 heroin and amphetamine use (7) Abnormal liver enzymes (8) Acute kidney injury (nontraumatic) Assessment: better/ (9) Bacteremia Assessment: CoNS Plan Cardio following. ID following. cont abx per ID. back on dapto. d/c plan home today after last dose of abx, Subjective Subjective late entry for 07/29 - anxious to go home. Objective Objective Last 24 Hour Vital Signs Date Time Temp Pulse Resp B/P Pulse Ox O2 Delivery O2 Flow Rate FiO2 07/29/16 16:00 96.6 69 20 112/74 97 Room Air 07/29/16 12:00 97.3 59 20 96/55 97 Room Air Intake and Output 07/29/16 07/30/16 19:00 07:00 Intake Total 450 ml Balance 450 ml Intake Oral 450 ml # Voids 3 Height (Feet): 5 Height (Inches): 10.00 Weight (Pounds): 190 General Appearance: no apparent distress Cardiovascular: normal rate, regular rhythm Respiratory/Chest: lungs clear Abdomen: non tender, soft Extremities: non-pitting Neurologic: alert ABBEY VALENTINE Jul 30, 2016 08:46
--- NOTE | 2016-07-30 14:52 | Discharge Summary ---
Discharge Summary Hospital Course Date of Admission Jul 04, 2016 at 06:20 Date of Discharge Jul 29, 2016 at 19:00 Admitting Diagnosis Drug overdose HPI Scotty Bruner is a 41 year old male who was admitted on Jul 04, 2016 at 06:20 for Drug Overdose Hospital Course [id number] Discharge Discharge Disposition Patient was discharged to Home (01) Discharge Diagnoses: Leidy Argueta NP Jul 30, 2016 14:52
--- NOTE | 2016-07-31 06:37 | Discharge Summary 2 SIG ---
DATE OF ADMISSION: 07/04/2016 DATE OF DISCHARGE: 07/29/2016 CONSULTANTS: 1. Ernst Geller M.D. 2. Elijah Montes M.D. 3. Joshua Ford M.D. 4. Emeka Grover M.D. BRIEF HOSPITAL COURSE: The patient is a 40-year-old male, who was brought in by EMS as he was found altered in the car. At ED, he was agitated and screaming and was given Narcan. He was positive for opiates and amphetamine. Dr. Montes was consulted for evaluation of leukopenia. WBC was 2000 with 54% neutrophils and 24% lymphocytes. Dr. Ford was consulted for tachycardia. Heart rate of 122. Tachycardia probably secondary to amphetamine use. Echocardiogram done showed left ventricular ejection fraction of 55% to 60%. Dr. Grover was consulted for neurological consult. CT scan of the brain revealed no evidence of acute intracranial abnormality. No pathology detected. There was bilateral ethmoid and left maxillary chronic sinus disease. Patient admitted using crystal methamphetamine for the last five years and on two occasions, had detoxication program, however, over the last week started using intravenous heroin and became confused. Acute encephalopathy was secondary to amphetamine and heroin intoxication in setting of chronic substance abuse. He was given Ativan as needed for agitation. Dr. Geller was consulted for fever of 101.3 at emergency department. Blood culture showed coagulase negative Staph with high JULISSA for vancomycin. The patient will need four weeks of daptomycin. He was recommended transthoracic echocardiogram to rule out endocarditis, however, the patient refused. The screening for HIV and hepatitis were negative. The patient was given Zyvox since pharmacy ran out of daptomycin unable to discharge the patient home to continue four weeks of IV antibiotics as it is not safe to send him home with IV access given history of IV drug use. The patient completed four week treatment of daptomycin and was eventually discharged home. FINAL DIAGNOSES: 1. Acute toxic metabolic encephalopathy secondary to amphetamine and heroin use. 2. Acute kidney injury. 3. Sepsis with coagulase negative Staph. 4. Amphetamine abuse. 5. Opiate overdose. 6. Coagulase-negative Staph bacteremia. 7. Vancomycin resistant enterococcus positive. 8. Sinus tachycardia due to amphetamine use and sepsis. 9. Thrombocytosis likely reactive process. 10. Anemia secondary to chronic disease. 11. Elevated liver transaminases. 12. Leukopenia likely medication related, improved. Vance Kirk M.D. I have been assigned to dictate discharge summary on this account and I was not involved in the patient's management. Leidy Argueta N.P. DR: Shanique JOB#: [id number] CC: REBECCA
== END 2016-07-29 19:00 | disposition home or self-care (01) | DRG 816 ==
LOC: EDBD 16:41 → EMR 18:18 → 2E 07-04 06:20 → EDBEDREQ 07-04 14:47 → 2E 07-04 16:00 → 4E 07-09 20:14
DX: T40.1X1A Poisoning by heroin, accidental (unintentional), initial encounter (principal); A41.1 Sepsis due to other specified staphylococcus; G92 Toxic encephalopathy; N17.9 Acute kidney failure, unspecified; D70.9 Neutropenia, unspecified; T43.621A Poisoning by amphetamines, accidental (unintentional), initial encounter; F11.10 Opioid abuse, uncomplicated; D72.819 Decreased white blood cell count, unspecified; D63.8 Anemia in other chronic diseases classified elsewhere; Z88.0 Allergy status to penicillin; D47.3 Essential (hemorrhagic) thrombocythemia; R00.0 Tachycardia, unspecified; J32.2 Chronic ethmoidal sinusitis; Z22.39 Carrier of other specified bacterial diseases; F15.10 Other stimulant abuse, uncomplicated; E87.6 Hypokalemia
CPT/HCPCS: 36415; 70450; 71010; 76700; 80048; 80053; 80202; 80300; 80329; 82550; 82607; 82746; 82962; 83605; 84439; 84443; 84484; 85007; 85025; 85060; 85651; 86703; 86709; 86803; 87040; 87081; 87181; 87340; 87517; 93005; 93306; 94760; J2310; J8499